=== PATIENT | female | born 1945 | race Caucasian/White ===

== ENCOUNTER → 2017-12-18 | Outpatient (CLI) | payer MEDICARE, MEDICAID | LOC: M WUC 10:55 | DX: M25.511 Pain in right shoulder (principal) | CPT/HCPCS: 73030 ==

== ENCOUNTER 2018-01-08 22:43 | Emergency (ER) | payer MEDICARE, MEDICAID ==
[2018-01-09] MEDS: diphenhydrAMINE 25 MG CAP PO (04:03)
== END 2018-01-09 04:43 | disposition home or self-care (01) ==
LOC: M ED 22:43
DX: Z60.9 Problem related to social environment, unspecified (principal); I10 Essential (primary) hypertension; K21.9 Gastro-esophageal reflux disease without esophagitis; E78.5 Hyperlipidemia, unspecified; R41.89 Other symptoms and signs involving cognitive functions and awareness; Z72.0 Tobacco use; Z79.82 Long term (current) use of aspirin; Z79.899 Other long term (current) drug therapy; Z88.6 Allergy status to analgesic agent; Z88.5 Allergy status to narcotic agent; Z88.7 Allergy status to serum and vaccine; Z88.8 Allergy status to other drugs, medicaments and biological substances
CPT/HCPCS: 99282

== ENCOUNTER → 2018-01-11 | Outpatient (REF) | payer MEDICARE, MEDICAID ==
[2018-01-11 13:27] LABS: APPEARANCE, URINE CLOUDY (CLEAR); BACTERIA, URINE AUTO NEGATIVE (NEGATIVE); BILIRUBIN, URINE AUTO NEGATIVE (NEGATIVE); BLOOD, URINE BLOOD NEGATIVE (NEGATIVE); COLOR, URINE AMBER (YELLOW); GLUCOSE, URINE (UA) AUTO NEGATIVE (NEGATIVE); KETONE, URINE AUTO TRACE mg/dL (NEGATIVE); LEUKOCYTE ESTERASE, URINE AUTO 3+ (NEGATIVE); MUCUS, URINE SMALL (NEGATIVE); NITRITE, URINE AUTO NEGATIVE (NEGATIVE); PROTEIN, URINE AUTO NEGATIVE (NEGATIVE); RBC, URINE AUTO 3 /HPF (0-3); SPECIFIC GRAVITY URINE AUTO 1.017 (1.002-1.035); SQUAMOUS EPITHELIAL CELL UR AU 15 /HPF (0-6); WBC, URINE AUTO 28 /HPF (0-3)
== END ==
LOC: M SMT 13:01
DX: R32 Unspecified urinary incontinence (principal)
CPT/HCPCS: 81001

== ENCOUNTER 2018-01-25 13:58 | Emergency (ER) | payer MEDICARE, MEDICAID ==
[2018-01-25] MEDS: LIDOCAINE 5% OINT 30 GM TOP (16:29)
[2018-01-26] MEDS ORDERED: LIDOCAINE 5% OINT 30 GM TOP (09:00)
== END 2018-01-25 16:48 | disposition home or self-care (01) ==
LOC: M ED 13:58
DX: B37.89 Other sites of candidiasis (principal); M54.9 Dorsalgia, unspecified; I10 Essential (primary) hypertension; E78.00 Pure hypercholesterolemia, unspecified; F20.9 Schizophrenia, unspecified; Z16.21 Resistance to vancomycin; Z86.39 Personal history of other endocrine, nutritional and metabolic disease; F17.200 Nicotine dependence, unspecified, uncomplicated; Z79.899 Other long term (current) drug therapy
CPT/HCPCS: 99283

== ENCOUNTER 2018-01-30 19:04 | Inpatient (IN) | payer MEDICARE, MEDICAID ==
[2018-01-30 19:04] LABS: HEMATOCRIT 39.7 % (36.0-47.0); HEMOGLOBIN 12.9 g/dl (12.0-15.5); MEAN CORPUSCULAR HEMOGLOBIN 34.1 pg (27.0-33.0); MEAN CORPUSCULAR HGB CONC 32.5 g/dl (32.0-36.5); PLATELET COUNT, AUTOMATED 204 10^3/uL (150-450); RED BLOOD COUNT 3.78 10^6/uL (4.00-5.40); WHITE BLOOD COUNT 7.5 10^3/uL (4.0-10.0)
[2018-01-30 19:30] LABS: ACETAMINOPHEN LEVEL < 2.0 UG/ML (10.0-30.0); ALBUMIN 3.1 GM/DL (3.2-5.2); ALBUMIN/GLOBULIN RATIO 0.86 (1.00-1.93); ALKALINE PHOSPHATASE 93 U/L (45-117); ALT/SGPT 23 U/L (12-78); ANION GAP 8 MEQ/L (8-16); AST/SGOT 21 U/L (7-37); BILIRUBIN,DIRECT 0.1 MG/DL (0.0-0.2); BILIRUBIN,TOTAL 0.3 MG/DL (0.2-1.0); BLOOD UREA NITROGEN 17 MG/DL (7-18); CALCIUM LEVEL 8.5 MG/DL (8.8-10.2); CARBON DIOXIDE LEVEL 30 MEQ/L (21-32); CHLORIDE LEVEL 107 MEQ/L (98-107); CREATININE FOR GFR 0.73 MG/DL (0.55-1.30); ETHYL ALCOHOL (ETHANOL) < 0.003 % (0.000-0.010); GLOMERULAR FILTRATION RATE > 60.0 (>39); GLUCOSE, FASTING 112 MG/DL (70-100); POTASSIUM SERUM 3.9 MEQ/L (3.5-5.1); SALICYLATE LEVEL < 1.7 MG/DL (5.0-30.0); SODIUM LEVEL 145 MEQ/L (136-145); TOTAL PROTEIN 6.7 GM/DL (6.4-8.2)
[2018-01-30 20:57] LABS: AMPHETAMINES LEVEL URINE NEGATIVE (NEGATIVE); BARBITURATES URINE NEGATIVE (NEGATIVE); BENZODIAZEPINES URINE NEGATIVE (NEGATIVE); CANNABINOIDS URINE NEGATIVE (NEGATIVE); COCAINE METABOLITE URINE NEGATIVE (NEGATIVE); METHADONE URINE NEGATIVE (NEGATIVE); OPIATES URINE NEGATIVE (NEGATIVE); PHENCYCLIDINE URINE NEGATIVE (NEGATIVE)
[2018-01-30] MEDS ORDERED: MOM 30ML SUSPENSION UDC PO (22:00)
[2018-01-30] MEDS ORDERED: MAALOX 30 ML SUSP *UDC PO (22:00)
[2018-01-31] MEDS: QUEtiapine FUMARATE 50 MG TAB PO ×2 (01:02→21:00)
[2018-01-31] MEDS: DIVALPROEX 500 MG TAB PO ×2 (01:02→21:00)
[2018-01-31] MEDS: traZODone 50 MG TAB PO (01:03)
[2018-01-31] MEDS ORDERED: ALBUTEROL 90 MCG/ACT 8GM HFA INHALER INH (10:00)
[2018-01-31] MEDS: ASPIRIN 81 MG ENTERIC TAB PO (10:17)
[2018-01-31] MEDS: ATORVASTATIN 20 MG TAB PO (10:17)
[2018-01-31] MEDS: NYSTATIN 500,000 U/5 ML SUSP UDC SS ×3 (10:17→21:00)
[2018-01-31] MEDS: TIOTROPIUM INHALER/CAPSULE (SPIRIVA) INH (10:17)
[2018-01-31] MEDS: MAGNESIUM OXIDE 400 MG TAB (MAG-OX) PO (10:17)
[2018-01-31] MEDS: OMEPRAZOLE 20 MG CAP PO (10:17)
[2018-01-31] MEDS: amLODIPine 5 MG TAB PO (10:18)
[2018-01-31] MEDS: LIDOCAINE 5% (LIDODERM) PATCH TD (10:26)
[2018-01-31 11:32] LABS: KETONE, URINE AUTO RFX NEGATIVE (NEGATIVE); LEUKOCYTE ESTERASE UR AUTO RFX 2+ (NEGATIVE); MUCUS, URINE RFX SMALL (NEGATIVE); NITRITE, URINE AUTO RFX NEGATIVE (NEGATIVE); RBC, URINE AUTO RFX 1 /HPF (0-3); SPECIFIC GRAVITY UR AUTO RFX 1.013 (1.002-1.035); SQUAM EPITHELIAL CELL UR AURFX 5 /HPF (0-6); WBC, URINE AUTO RFX 4 /HPF (0-3)
[2018-01-31] MEDS: NYSTATIN 100,000 UNITS/GM TOPICAL PWD 15 GM TOP ×2 (11:37→21:00)
[2018-01-31] MEDS: oxyBUTYnin *DITROPAN XL* 5 MG TABCR PO (11:38)
[2018-01-31] MEDS: DULoxetine 30 MG CAP (CYMBALTA) PO (16:31)
[2018-01-31] MEDS: LORazepam 1 MG TAB PO (16:31)
[2018-01-31] MEDS: traMADol 50 MG TAB PO (16:33)
[2018-01-31] MEDS: TIMOLOL MALEATE 0.5% OPHTH SOLN 5 ML OU (21:00)
[2018-01-31] MEDS ORDERED: QUEtiapine FUMARATE 50 MG TAB PO (21:00)
[2018-01-31] MEDS: LATANOPROST 0.005% OPHTH SOLN 2.5 ML OU (21:00)
[2018-01-31] MEDS ORDERED: DIVALPROEX 500 MG TAB PO (21:00)
[2018-01-31] MEDS: **NOTE PATIENT COMMENT** MISC XX ×2 (21:00)
[2018-02-01 07:32] LABS: HEMATOCRIT 39.6 % (36.0-47.0); HEMOGLOBIN 13.2 g/dl (12.0-15.5); MEAN CORPUSCULAR HEMOGLOBIN 34.9 pg (27.0-33.0); MEAN CORPUSCULAR HGB CONC 33.3 g/dl (32.0-36.5); MEAN CORPUSCULAR VOLUME 104.8 fl (80.0-96.0); PLATELET COUNT, AUTOMATED 200 10^3/uL (150-450); RED BLOOD COUNT 3.78 10^6/uL (4.00-5.40); RED CELL DISTRIBUTION WIDTH 12.9 % (11.5-14.5); WHITE BLOOD COUNT 7.4 10^3/uL (4.0-10.0)
[2018-02-01 07:52] LABS: ANION GAP 6 MEQ/L (8-16); BLOOD UREA NITROGEN 19 MG/DL (7-18); CALCIUM LEVEL 8.8 MG/DL (8.8-10.2); CARBON DIOXIDE LEVEL 30 MEQ/L (21-32); CHLORIDE LEVEL 107 MEQ/L (98-107); CREATININE FOR GFR 0.71 MG/DL (0.55-1.30); GLOMERULAR FILTRATION RATE > 60.0 (>39); GLUCOSE, FASTING 102 MG/DL (70-100); POTASSIUM SERUM 4.2 MEQ/L (3.5-5.1); SODIUM LEVEL 143 MEQ/L (136-145)
[2018-02-01 07:55] LABS: VALPROIC ACID (DEPAKOTE) 35.8 UG/ML (50.0-100.0)
[2018-02-01] MEDS: LIDOCAINE 5% (LIDODERM) PATCH TD (09:00)
[2018-02-01] MEDS: NYSTATIN 100,000 UNITS/GM TOPICAL PWD 15 GM TOP ×2 (09:14→21:17)
[2018-02-01] MEDS: oxyBUTYnin *DITROPAN XL* 5 MG TABCR PO (09:15)
[2018-02-01] MEDS: MAGNESIUM OXIDE 400 MG TAB (MAG-OX) PO (09:15)
[2018-02-01] MEDS: TIOTROPIUM INHALER/CAPSULE (SPIRIVA) INH (09:15)
[2018-02-01] MEDS: NYSTATIN 500,000 U/5 ML SUSP UDC SS ×3 (09:15→21:16)
[2018-02-01] MEDS: DULoxetine 30 MG CAP (CYMBALTA) PO (09:15)
[2018-02-01] MEDS: amLODIPine 5 MG TAB PO (09:16)
[2018-02-01] MEDS: ASPIRIN 81 MG ENTERIC TAB PO (09:17)
[2018-02-01] MEDS: OMEPRAZOLE 20 MG CAP PO (09:17)
[2018-02-01] MEDS: ATORVASTATIN 20 MG TAB PO (09:17)
[2018-02-01 09:44] LABS: FOLATE > 24.0 NG/ML (>5.4)
[2018-02-01 09:44] LABS: VITAMIN B12 LEVEL 523 PG/ML (247-911)
[2018-02-01] MEDS: LATANOPROST 0.005% OPHTH SOLN 2.5 ML OU (21:00)
[2018-02-01] MEDS: TIMOLOL MALEATE 0.5% OPHTH SOLN 5 ML OU (21:00)
[2018-02-01] MEDS: **NOTE PATIENT COMMENT** MISC XX (21:00)
[2018-02-01] MEDS: QUEtiapine FUMARATE 50 MG TAB PO (21:16)
[2018-02-01] MEDS: DIVALPROEX 500 MG TAB PO (21:16)
[2018-02-02] MEDS: LORazepam 1 MG TAB PO (03:07)
[2018-02-02] MEDS: traMADol 50 MG TAB PO (03:21)
[2018-02-02] MEDS: NYSTATIN 100,000 UNITS/GM TOPICAL PWD 15 GM TOP ×2 (09:00→21:00)
[2018-02-02] MEDS: LIDOCAINE 5% (LIDODERM) PATCH TD ×2 (09:00→10:11)
[2018-02-02] MEDS: ASPIRIN 81 MG ENTERIC TAB PO (09:17)
[2018-02-02] MEDS: OMEPRAZOLE 20 MG CAP PO (09:17)
[2018-02-02] MEDS: NYSTATIN 500,000 U/5 ML SUSP UDC SS ×3 (09:18→21:00)
[2018-02-02] MEDS: ATORVASTATIN 20 MG TAB PO (09:18)
[2018-02-02] MEDS: DULoxetine 30 MG CAP (CYMBALTA) PO (09:18)
[2018-02-02] MEDS: amLODIPine 5 MG TAB PO (09:18)
[2018-02-02] MEDS: TIOTROPIUM INHALER/CAPSULE (SPIRIVA) INH (09:18)
[2018-02-02] MEDS: MAGNESIUM OXIDE 400 MG TAB (MAG-OX) PO (09:18)
[2018-02-02] MEDS: PILL CRUSHER/CUTTER 1 EACH XX (09:18)
[2018-02-02] MEDS: oxyBUTYnin *DITROPAN XL* 5 MG TABCR PO (09:18)
[2018-02-02] MEDS: **NOTE PATIENT COMMENT** MISC XX (13:34)
[2018-02-02] MEDS: TIMOLOL MALEATE 0.5% OPHTH SOLN 5 ML OU (21:00)
[2018-02-02] MEDS: LATANOPROST 0.005% OPHTH SOLN 2.5 ML OU (21:00)
[2018-02-03] MEDS: QUEtiapine FUMARATE 100 MG TAB PO (01:21)
[2018-02-03] MEDS: DIVALPROEX 250 MG TAB PO ×2 (01:21→20:55)
[2018-02-03] MEDS: traMADol 50 MG TAB PO (01:35)
[2018-02-03] MEDS: DULoxetine 30 MG CAP (CYMBALTA) PO (09:00)
[2018-02-03] MEDS: amLODIPine 5 MG TAB PO (09:00)
[2018-02-03] MEDS: PILL CRUSHER/CUTTER 1 EACH XX (09:00)
[2018-02-03] MEDS: NYSTATIN 500,000 U/5 ML SUSP UDC SS ×3 (09:00→20:54)
[2018-02-03] MEDS: NYSTATIN 100,000 UNITS/GM TOPICAL PWD 15 GM TOP ×2 (09:00→20:54)
[2018-02-03] MEDS: ASPIRIN 81 MG ENTERIC TAB PO (09:00)
[2018-02-03] MEDS: OMEPRAZOLE 20 MG CAP PO (09:00)
[2018-02-03] MEDS: ATORVASTATIN 20 MG TAB PO (09:00)
[2018-02-03] MEDS: TIOTROPIUM INHALER/CAPSULE (SPIRIVA) INH (09:01)
[2018-02-03] MEDS: oxyBUTYnin *DITROPAN XL* 5 MG TABCR PO (09:01)
[2018-02-03] MEDS: LIDOCAINE 5% (LIDODERM) PATCH TD (09:01)
[2018-02-03] MEDS: MAGNESIUM OXIDE 400 MG TAB (MAG-OX) PO (09:02)
[2018-02-03] MEDS: TIMOLOL MALEATE 0.5% OPHTH SOLN 5 ML OU (20:54)
[2018-02-03] MEDS: LATANOPROST 0.005% OPHTH SOLN 2.5 ML OU (20:56)
[2018-02-03] MEDS: **NOTE PATIENT COMMENT** MISC XX (21:00)
[2018-02-03] MEDS: LevoFLOXacin 500 MG TABLET PO (22:00)
[2018-02-03] MEDS: LACTOBACILLUS ACIDOPHILUS CAP (BACID) PO (22:00)
[2018-02-04] MEDS: LORazepam 1 MG TAB PO ×2 (03:42→10:01)
[2018-02-04] MEDS: traMADol 50 MG TAB PO ×2 (03:42→10:02)
[2018-02-04] MEDS: LevoFLOXacin 250 MG TABLET PO (06:12)
[2018-02-04 07:19] LABS: VALPROIC ACID (DEPAKOTE) 97.6 UG/ML (50.0-100.0)
[2018-02-04] MEDS: ASPIRIN 81 MG ENTERIC TAB PO (09:00)
[2018-02-04] MEDS: NYSTATIN 100,000 UNITS/GM TOPICAL PWD 15 GM TOP ×2 (09:52→21:06)
[2018-02-04] MEDS: DULoxetine 30 MG CAP (CYMBALTA) PO (09:54)
[2018-02-04] MEDS: amLODIPine 5 MG TAB PO (09:54)
[2018-02-04] MEDS: LACTOBACILLUS ACIDOPHILUS CAP (BACID) PO ×2 (09:55→21:05)
[2018-02-04] MEDS: OMEPRAZOLE 20 MG CAP PO (09:55)
[2018-02-04] MEDS: oxyBUTYnin *DITROPAN XL* 5 MG TABCR PO (09:55)
[2018-02-04] MEDS: MAGNESIUM OXIDE 400 MG TAB (MAG-OX) PO (09:56)
[2018-02-04] MEDS: ATORVASTATIN 20 MG TAB PO (09:56)
[2018-02-04] MEDS: NYSTATIN 500,000 U/5 ML SUSP UDC SS ×3 (09:56→21:06)
[2018-02-04] MEDS: LIDOCAINE 5% (LIDODERM) PATCH TD (09:57)
[2018-02-04] MEDS: TIOTROPIUM INHALER/CAPSULE (SPIRIVA) INH (13:16)
[2018-02-04] MEDS: TIMOLOL MALEATE 0.5% OPHTH SOLN 5 ML OU (21:06)
[2018-02-04] MEDS: DIVALPROEX 500 MG TAB PO (21:06)
[2018-02-04] MEDS: LATANOPROST 0.005% OPHTH SOLN 2.5 ML OU (21:20)
[2018-02-04] MEDS: **NOTE PATIENT COMMENT** MISC XX (21:29)
[2018-02-05] MEDS: LevoFLOXacin 250 MG TABLET PO (06:14)
[2018-02-05 08:08] LABS: VALPROIC ACID (DEPAKOTE) 72.1 UG/ML (50.0-100.0)
[2018-02-05] MEDS: NYSTATIN 500,000 U/5 ML SUSP UDC SS ×3 (08:40→20:10)
[2018-02-05] MEDS: LACTOBACILLUS ACIDOPHILUS CAP (BACID) PO ×2 (08:41→20:10)
[2018-02-05] MEDS: PILL CRUSHER/CUTTER 1 EACH XX (08:41)
[2018-02-05] MEDS: OMEPRAZOLE 20 MG CAP PO (08:41)
[2018-02-05] MEDS: amLODIPine 5 MG TAB PO (08:41)
[2018-02-05] MEDS: MAGNESIUM OXIDE 400 MG TAB (MAG-OX) PO (08:41)
[2018-02-05] MEDS: TIOTROPIUM INHALER/CAPSULE (SPIRIVA) INH (08:41)
[2018-02-05] MEDS: oxyBUTYnin *DITROPAN XL* 5 MG TABCR PO (08:41)
[2018-02-05] MEDS: DULoxetine 30 MG CAP (CYMBALTA) PO (08:41)
[2018-02-05] MEDS: ATORVASTATIN 20 MG TAB PO (08:41)
[2018-02-05] MEDS: ASPIRIN 81 MG ENTERIC TAB PO (08:42)
[2018-02-05] MEDS: traMADol 50 MG TAB PO ×2 (08:45→16:22)
[2018-02-05] MEDS: LIDOCAINE 5% (LIDODERM) PATCH TD (08:46)
[2018-02-05] MEDS: DIVALPROEX 500 MG TAB PO (20:10)
[2018-02-05] MEDS: TIMOLOL MALEATE 0.5% OPHTH SOLN 5 ML OU (20:10)
[2018-02-05] MEDS: LATANOPROST 0.005% OPHTH SOLN 2.5 ML OU (20:10)
[2018-02-05] MEDS: MYCOLOG CREAM 15 GM (NYSTATIN/TRIAMCINOLONE) TOP (20:10)
[2018-02-05] MEDS: **NOTE PATIENT COMMENT** MISC XX (20:14)
[2018-02-06] MEDS: LevoFLOXacin 250 MG TABLET PO (05:35)
[2018-02-06] MEDS: MYCOLOG CREAM 15 GM (NYSTATIN/TRIAMCINOLONE) TOP ×2 (08:22→22:59)
[2018-02-06] MEDS: OMEPRAZOLE 20 MG CAP PO (08:23)
[2018-02-06] MEDS: amLODIPine 5 MG TAB PO (08:23)
[2018-02-06] MEDS: NYSTATIN 500,000 U/5 ML SUSP UDC SS ×3 (08:23→22:58)
[2018-02-06] MEDS: oxyBUTYnin *DITROPAN XL* 5 MG TABCR PO (08:23)
[2018-02-06] MEDS: MAGNESIUM OXIDE 400 MG TAB (MAG-OX) PO (08:23)
[2018-02-06] MEDS: LACTOBACILLUS ACIDOPHILUS CAP (BACID) PO ×2 (08:23→22:58)
[2018-02-06] MEDS: TIOTROPIUM INHALER/CAPSULE (SPIRIVA) INH (08:23)
[2018-02-06] MEDS: DULoxetine 30 MG CAP (CYMBALTA) PO (08:23)
[2018-02-06] MEDS: ASPIRIN 81 MG ENTERIC TAB PO (08:23)
[2018-02-06] MEDS: ATORVASTATIN 20 MG TAB PO (08:23)
[2018-02-06] MEDS: LIDOCAINE 5% (LIDODERM) PATCH TD (08:24)
[2018-02-06] MEDS: **NOTE PATIENT COMMENT** MISC XX (21:00)
[2018-02-06] MEDS: DIVALPROEX 500 MG TAB PO (22:58)
[2018-02-06] MEDS: traMADol 50 MG TAB PO (22:58)
[2018-02-06] MEDS: LATANOPROST 0.005% OPHTH SOLN 2.5 ML OU (22:58)
[2018-02-06] MEDS: TIMOLOL MALEATE 0.5% OPHTH SOLN 5 ML OU (22:58)
[2018-02-07] MEDS: traMADol 50 MG TAB PO (04:51)
[2018-02-07] MEDS: LevoFLOXacin 250 MG TABLET PO (06:02)
[2018-02-07] MEDS: ASPIRIN 81 MG ENTERIC TAB PO (09:00)
[2018-02-07] MEDS: DULoxetine 30 MG CAP (CYMBALTA) PO (09:43)
[2018-02-07] MEDS: LACTOBACILLUS ACIDOPHILUS CAP (BACID) PO (09:45)
[2018-02-07] MEDS: ATORVASTATIN 20 MG TAB PO (09:45)
[2018-02-07] MEDS: MAGNESIUM OXIDE 400 MG TAB (MAG-OX) PO (09:45)
[2018-02-07] MEDS: OMEPRAZOLE 20 MG CAP PO (09:53)
[2018-02-07] MEDS: LIDOCAINE 5% (LIDODERM) PATCH TD ×2 (09:53→10:53)
[2018-02-07] MEDS: NYSTATIN 500,000 U/5 ML SUSP UDC SS (09:53)
[2018-02-07] MEDS: MYCOLOG CREAM 15 GM (NYSTATIN/TRIAMCINOLONE) TOP (09:54)
[2018-02-07] MEDS: TIOTROPIUM INHALER/CAPSULE (SPIRIVA) INH (09:55)
[2018-02-07] MEDS: oxyBUTYnin *DITROPAN XL* 5 MG TABCR PO (09:55)
[2018-02-07] MEDS: amLODIPine 5 MG TAB PO (10:38)
== END 2018-02-07 13:12 | disposition home or self-care (01) | DRG 885 ==
LOC: M ED 19:04 → M ED INP 21:49 → M PSY 22:30
DX: F31.9 Bipolar disorder, unspecified (principal); R45.851 Suicidal ideations; B37.0 Candidal stomatitis; J44.9 Chronic obstructive pulmonary disease, unspecified; I10 Essential (primary) hypertension; E78.5 Hyperlipidemia, unspecified; M54.2 Cervicalgia; H40.9 Unspecified glaucoma; K21.9 Gastro-esophageal reflux disease without esophagitis; M81.0 Age-related osteoporosis without current pathological fracture; F17.210 Nicotine dependence, cigarettes, uncomplicated; R26.81 Unsteadiness on feet; N32.81 Overactive bladder; E83.42 Hypomagnesemia; M54.5 Low back pain; B35.9 Dermatophytosis, unspecified; Z79.899 Other long term (current) drug therapy; Z92.3 Personal history of irradiation; Z85.3 Personal history of malignant neoplasm of breast; Z90.49 Acquired absence of other specified parts of digestive tract; Z79.82 Long term (current) use of aspirin; Z88.5 Allergy status to narcotic agent; Z88.6 Allergy status to analgesic agent; Z88.7 Allergy status to serum and vaccine

== ENCOUNTER 2018-03-05 23:15 | Emergency (ER) | payer MEDICARE, MEDICAID ==
[2018-03-06 01:14] LABS: HEMOGLOBIN 12.8 g/dl (12.0-15.5); MEAN CORPUSCULAR HEMOGLOBIN 33.7 pg (27.0-33.0); MEAN CORPUSCULAR HGB CONC 32.8 g/dl (32.0-36.5); MEAN CORPUSCULAR VOLUME 102.6 fl (80.0-96.0); PLATELET COUNT, AUTOMATED 209 10^3/uL (150-450); RED CELL DISTRIBUTION WIDTH 12.6 % (11.5-14.5); WHITE BLOOD COUNT 7.7 10^3/uL (4.0-10.0)
[2018-03-06 01:45] LABS: ACETAMINOPHEN LEVEL < 2.0 UG/ML (10.0-30.0); ALBUMIN/GLOBULIN RATIO 0.81 (1.00-1.93); ALKALINE PHOSPHATASE 88 U/L (45-117); ALT/SGPT 18 U/L (12-78); ANION GAP 4 MEQ/L (8-16); AST/SGOT 16 U/L (7-37); BILIRUBIN,DIRECT 0.1 MG/DL (0.0-0.2); BILIRUBIN,TOTAL 0.4 MG/DL (0.2-1.0); BLOOD UREA NITROGEN 20 MG/DL (7-18); CALCIUM LEVEL 8.9 MG/DL (8.8-10.2); CARBON DIOXIDE LEVEL 33 MEQ/L (21-32); CHLORIDE LEVEL 102 MEQ/L (98-107); CREATININE FOR GFR 0.73 MG/DL (0.55-1.30); GLOMERULAR FILTRATION RATE > 60.0 (>39); GLUCOSE, FASTING 115 MG/DL (70-100); POTASSIUM SERUM 4.1 MEQ/L (3.5-5.1); SALICYLATE LEVEL < 1.7 MG/DL (5.0-30.0); SODIUM LEVEL 139 MEQ/L (136-145); TOTAL PROTEIN 6.7 GM/DL (6.4-8.2)
[2018-03-06 02:57] LABS: KETONE, URINE AUTO RFX NEGATIVE (NEGATIVE); LEUKOCYTE ESTERASE UR AUTO RFX TRACE (NEGATIVE); NITRITE, URINE AUTO RFX NEGATIVE (NEGATIVE); RBC, URINE AUTO RFX 3 /HPF (0-3); SPECIFIC GRAVITY UR AUTO RFX 1.006 (1.002-1.035); SQUAM EPITHELIAL CELL UR AURFX 1 /HPF (0-6); WBC, URINE AUTO RFX 7 /HPF (0-3)
[2018-03-06 04:23] LABS: CHLAMYDIA DNA AMPLIFICATION NEGATIVE (NEGATIVE); GC DNA AMPLIFICATION NEGATIVE (NEGATIVE)
[2018-03-06 15:28] LABS: AMPHETAMINES LEVEL URINE NEGATIVE (NEGATIVE); BARBITURATES URINE NEGATIVE (NEGATIVE); BENZODIAZEPINES URINE NEGATIVE (NEGATIVE); CANNABINOIDS URINE NEGATIVE (NEGATIVE); COCAINE METABOLITE URINE NEGATIVE (NEGATIVE); METHADONE URINE NEGATIVE (NEGATIVE); OPIATES URINE NEGATIVE (NEGATIVE); PHENCYCLIDINE URINE NEGATIVE (NEGATIVE)
[2018-03-12 14:13] LABS: ETHYL ALCOHOL (ETHANOL) < 0.003 % (0.000-0.010)
== END 2018-03-06 05:10 | disposition home or self-care (01) ==
LOC: M ED 23:15
DX: B37.9 Candidiasis, unspecified (principal); F32.9 Major depressive disorder, single episode, unspecified; Z88.8 Allergy status to other drugs, medicaments and biological substances; Z88.5 Allergy status to narcotic agent; Z88.7 Allergy status to serum and vaccine; Z88.6 Allergy status to analgesic agent; Z79.899 Other long term (current) drug therapy
CPT/HCPCS: G0480

== ENCOUNTER → 2018-03-21 | Outpatient (REF) | payer MEDICARE, MEDICAID ==
[2018-03-21 14:10] LABS: BASO % 0.4 % (0.0-1.0); EOS # 0.2 10^3/uL (0.0-0.50); HEMATOCRIT 42.2 % (36.0-47.0); IMMATURE GRANULOCYTE % 0.1 % (0-3.0); LYMPH # 3.6 10^3/uL (1.5-4.5); LYMPH % 42.1 % (24.0-44.0); MEAN CORPUSCULAR HEMOGLOBIN 33.8 pg (27.0-33.0); MEAN CORPUSCULAR HGB CONC 33.2 g/dl (32.0-36.5); MEAN CORPUSCULAR VOLUME 101.9 fl (80.0-96.0); MONO # 0.7 10^3/uL (0.0-0.8); MONO % 8.7 % (0.0-5.0); NEUTROPHILS % 46.7 % (36.0-66.0); PLATELET COUNT, AUTOMATED 231 10^3/uL (150-450); RED BLOOD COUNT 4.14 10^6/uL (4.00-5.40); RED CELL DISTRIBUTION WIDTH 12.5 % (11.5-14.5); WHITE BLOOD COUNT 8.5 10^3/uL (4.0-10.0)
[2018-03-21 14:31] LABS: ALBUMIN 3.3 GM/DL (3.2-5.2); ALKALINE PHOSPHATASE 90 U/L (45-117); ALT/SGPT 22 U/L (12-78); ANION GAP 7 MEQ/L (8-16); AST/SGOT 22 U/L (7-37); BILIRUBIN,TOTAL 0.5 MG/DL (0.2-1.0); BLOOD UREA NITROGEN 22 MG/DL (7-18); CALCIUM LEVEL 8.8 MG/DL (8.8-10.2); CARBON DIOXIDE LEVEL 31 MEQ/L (21-32); CHLORIDE LEVEL 102 MEQ/L (98-107); CHOLESTEROL LEVEL 99 MG/DL (<200); CHOLESTEROL RISK RATIO 2.911 (<5); GLOMERULAR FILTRATION RATE > 60.0 (>39); GLUCOSE, FASTING 90 MG/DL (70-100); HDL CHOLESTEROL 34 MG/DL (>40); LDL CHOLESTEROL 47 MG/DL (<100); NON-HDL-C 65 MG/DL; POTASSIUM SERUM 4.3 MEQ/L (3.5-5.1); SODIUM LEVEL 140 MEQ/L (136-145); TOTAL PROTEIN 7.4 GM/DL (6.4-8.2); TRIGLYCERIDES LEVEL 90 MG/DL (<150)
[2018-03-21 15:01] LABS: ESTIMATED AVERAGE GLUCOSE 137 MG/DL (60-110); HEMOGLOBIN A1c 6.4 %
== END ==
LOC: M LAB REF 13:55
DX: Z13.9 Encounter for screening, unspecified (principal); Z51.81 Encounter for therapeutic drug level monitoring; E66.09 Other obesity due to excess calories
CPT/HCPCS: 80053

== ENCOUNTER → 2018-03-29 | Outpatient (REF) | payer MEDICARE, MEDICAID ==
[2018-03-29 18:38] LABS: APPEARANCE, URINE HAZY (CLEAR); BACTERIA, URINE AUTO NEGATIVE (NEGATIVE); BILIRUBIN, URINE AUTO 1+ (NEGATIVE); BLOOD, URINE BLOOD NEGATIVE (NEGATIVE); COLOR, URINE AMBER (YELLOW); GLUCOSE, URINE (UA) AUTO NEGATIVE (NEGATIVE); KETONE, URINE AUTO TRACE mg/dL (NEGATIVE); LEUKOCYTE ESTERASE, URINE AUTO NEGATIVE (NEGATIVE); MUCUS, URINE LARGE (NEGATIVE); NITRITE, URINE AUTO NEGATIVE (NEGATIVE); PROTEIN, URINE AUTO 1+ mg/dL (NEGATIVE); RBC, URINE AUTO 9 /HPF (0-3); SPECIFIC GRAVITY URINE AUTO 1.021 (1.002-1.035); SQUAMOUS EPITHELIAL CELL UR AU 0 /HPF (0-6); WBC, URINE AUTO 5 /HPF (0-3)
== END ==
LOC: M LAB REF 17:05
DX: R39.89 Other symptoms and signs involving the genitourinary system (principal)
CPT/HCPCS: 81001

== ENCOUNTER → 2018-05-08 | Outpatient (REF) | payer MEDICARE, MEDICAID ==
[2018-05-08 18:48] LABS: APPEARANCE, URINE HAZY (CLEAR); BACTERIA, URINE AUTO 1+ (NEGATIVE); BILIRUBIN, URINE AUTO NEGATIVE (NEGATIVE); BLOOD, URINE BLOOD NEGATIVE (NEGATIVE); COLOR, URINE AMBER (YELLOW); GLUCOSE, URINE (UA) AUTO NEGATIVE (NEGATIVE); KETONE, URINE AUTO TRACE mg/dL (NEGATIVE); LEUKOCYTE ESTERASE, URINE AUTO TRACE (NEGATIVE); MUCUS, URINE SMALL (NEGATIVE); NITRITE, URINE AUTO NEGATIVE (NEGATIVE); PROTEIN, URINE AUTO NEGATIVE (NEGATIVE); RBC, URINE AUTO 2 /HPF (0-3); SPECIFIC GRAVITY URINE AUTO 1.024 (1.002-1.035); SQUAMOUS EPITHELIAL CELL UR AU 11 /HPF (0-6); WBC, URINE AUTO 8 /HPF (0-3)
== END ==
LOC: M LAB REF 16:59
DX: N39.41 Urge incontinence (principal)
CPT/HCPCS: 81001

== ENCOUNTER → 2018-08-21 | Outpatient (CLI) | payer MEDICARE, MEDICAID ==
[~2018-08-21] MED LIST: /ACET5TA PO; /AMLO25TA PO; /DIVA50TA PO; /ESCI10TA PO; /ESCI20TA PO; /LINE60TA PO; /MOXI40TA GT; /RALO60TA PO; ABIL10TA PO; ACET-654 PO; AMLO5TAB6 PO; AMOX125C PO; ASPI1TAB15; ASPI81CH PO; ASPI81TA4 PO; ASPI81TA85 PO; ASPI81TAEC PO; AUGM875T27 PO; BACIDCA PO; BACITAB PO; BENA25CA PO; CALC600T21 PO; CALMOIN EX; CIPR500T89 PO; CYMB60CA3; DAPT50VL IV; DEPA1TAB3 PO; DEPA500T2 PO; DESITIN EXT; DITR1TAB PO; DOCU100C PO; DULO1CAP3 PO; DULO30CA PO; ESTR62CR PV; FLAG500T PO; FLUC200T2 PO; FOLI1TAB11 PO; HYDR1CR EXT; ISOS20TA2 PO; KLON0.5T PO; LACT30TA PO; LATA5OPD OU; LIDO1DIS2 TD; LIPI20TA PO; LISI5TAB PO; MAG400TA; MAGN400T2 PO; MELO15TA3 PO; MELO7.5S PO; MULTCAP PO; MV-OCAP PO; MYRB50TA PO; NICO7PA EXT; NYST10CR; NYST10CR EXT; NYST1POW9 TOP; OMEP20CA3 PO; OXYB10TA PO; OXYCO5TA PO; PERCOCET PO; PRIL40CA PO; PRIN10TA PO; PROAAER IN; PROP PO; PROP10TA8 PO; QUES4POW2 PO; QUET1TAB7; QUET50TA48; QUET50TA48 PO; RISP0.5T21 PO; SERO150T PO; SERO200T2 PO; SERO400T PO; SIME80TA PO; SPIR1CAP INH; TAB-TAB PO; TIMO0.5S29; TIMO0.5S29 OU; TRAM50TA2; TRAZ-160; TRAZ-160 PO; TYLE325T5 PO; ULTR50TA PO; VENTAER INH; XALA0.007 OU; ZEST5TAB PO; ZOCO40TA PO; ZOFR4TAB3 PO; [UNRECOGNIZED DRUG - OTHER] PO
--- NOTE | 2018-08-21 19:01 | REP ---
LUMBOSACRAL SPINE: AP and lateral views of the lumbar spine are performed including flexion and extension views. Comparison made with prior CT 07/19/2013. There is again moderate curvature of the lumbar spine convex to the left. There appears to be a rotatory component. L4 is not well visualized on the lateral views and I cannot exclude acute compression of that vertebral body. There is straightening of the normal lumbar lordosis with no evidence of significant spondylolisthesis. There is moderate diffuse spurring. There is moderate disc space narrowing at all levels with subchondral sclerosis. There is vacuum at L1-2 disc level. Scattered vascular calcifications are present. There appears to be a stent in the right upper quadrant. IMPRESSION: Degenerative changes diffusely. Moderate curvature of the lumbar spine to the left again seen. This limits evaluation of L4 on the lateral view. I cannot exclude acute compression of L4 vertebral body. If there is concern for an occult fracture I recommend CT of the lumbar spine. Electronically Signed by Satnam Kam MD 08/21/2018 07:48 P
== END ==
LOC: M RAD 16:18
PROVIDERS: ATTEND Nurse Practitioner Family
DX: M53.86 Other specified dorsopathies, lumbar region (principal); M85.88 Other specified disorders of bone density and structure, other site; S30.0XXA Contusion of lower back and pelvis, initial encounter; W19.XXXA Unspecified fall, initial encounter; Y93.9 Activity, unspecified; Y99.9 Unspecified external cause status; Y92.9 Unspecified place or not applicable

== ENCOUNTER → 2018-09-20 | Outpatient (REF) | payer MEDICARE, MEDICAID ==
[2018-09-20 19:13] LABS: APPEARANCE, URINE CLEAR (CLEAR); BACTERIA, URINE AUTO 1+ (NEGATIVE); BILIRUBIN, URINE AUTO NEGATIVE (NEGATIVE); BLOOD, URINE BLOOD NEGATIVE (NEGATIVE); COLOR, URINE YELLOW (YELLOW); GLUCOSE, URINE (UA) AUTO NEGATIVE (NEGATIVE); KETONE, URINE AUTO NEGATIVE (NEGATIVE); LEUKOCYTE ESTERASE, URINE AUTO 1+ (NEGATIVE); NITRITE, URINE AUTO NEGATIVE (NEGATIVE); PROTEIN, URINE AUTO NEGATIVE (NEGATIVE); RBC, URINE AUTO 2 /HPF (0-3); SPECIFIC GRAVITY URINE AUTO 1.005 (1.002-1.035); SQUAMOUS EPITHELIAL CELL UR AU 1 /HPF (0-6); TRANSITIONAL EPITHELIAL AUTO <1 /HPF; UROBILINOGEN, URINE AUTO 0.2 mg/dL (0.0-2.0); WBC, URINE AUTO 10 /HPF (0-3)
== END ==
LOC: M LAB REF 10:14
PROVIDERS: ATTEND Family Medicine
DX: N39.0 Urinary tract infection, site not specified (principal); R32 Unspecified urinary incontinence

== ENCOUNTER → 2018-09-25 | Outpatient (REF) | payer MEDICARE, MEDICAID ==
[~2018-09-25] MED LIST changes: -/ACET5TA PO; -/AMLO25TA PO; -/DIVA50TA PO; -/ESCI10TA PO; -/ESCI20TA PO; -/LINE60TA PO; -/MOXI40TA GT; -/RALO60TA PO; +ACET1TAB18 PO; +AVEL1TAB2 GT; +DESI40PS3 EXT; -DESITIN EXT; -DULO30CA PO; +DULO30CA9 PO; +EVIS1TAB PO; -HYDR1CR EXT; +HYDR1CRE93 EXT; +INDE1CAP5 PO; +LATA0.0013 OU; -LATA5OPD OU; +LEXA1TAB PO; +LEXA1TAB2 PO; +NICO7DIS23 EXT; -NICO7PA EXT; +NORV2TAB PO; +ONDA-228 PO; +OXYC-517 PO; +OXYC1TAB23 PO; -OXYCO5TA PO; -PERCOCET PO; -PROP PO; -ZOFR4TAB3 PO; +ZYVO100T PO
[2018-09-25 16:56] LABS: BASO % 0.2 % (0.0-1.0); EOS # 0.3 10^3/uL (0.0-0.50); EOS % 2.9 % (0.0-3.0); HEMATOCRIT 38.6 % (36.0-47.0); HEMOGLOBIN 12.5 g/dl (12.0-15.5); LYMPH # 3.1 10^3/uL (1.5-4.5); LYMPH % 35.3 % (24.0-44.0); MEAN CORPUSCULAR HEMOGLOBIN 34.3 pg (27.0-33.0); MEAN CORPUSCULAR HGB CONC 32.4 g/dl (32.0-36.5); MONO # 0.7 10^3/uL (0.0-0.8); NEUTROPHILS # 4.6 10^3/uL (1.8-7.7); NEUTROPHILS % 53.4 % (36.0-66.0); PLATELET COUNT, AUTOMATED 260 10^3/uL (150-450); RED BLOOD COUNT 3.64 10^6/uL (4.00-5.40); WHITE BLOOD COUNT 8.7 10^3/uL (4.0-10.0)
[2018-09-25 17:01] LABS: ALBUMIN 3.4 GM/DL (3.2-5.2); ALT/SGPT 21 U/L (12-78); BILIRUBIN,TOTAL 0.4 MG/DL (0.2-1.0); BLOOD UREA NITROGEN 18 MG/DL (7-18); CARBON DIOXIDE LEVEL 32 MEQ/L (21-32); CHLORIDE LEVEL 101 MEQ/L (98-107); CHOLESTEROL LEVEL 121 MG/DL (<200); CREATININE FOR GFR 0.95 MG/DL (0.55-1.30); GLOMERULAR FILTRATION RATE > 60.0 (>39); GLUCOSE, FASTING 117 MG/DL (70-100); HDL CHOLESTEROL 42 MG/DL (>40); LDL CHOLESTEROL 61 MG/DL (<100); NON-HDL-C 79 MG/DL; POTASSIUM SERUM 3.8 MEQ/L (3.5-5.1); SODIUM LEVEL 138 MEQ/L (136-145); TOTAL PROTEIN 7.5 GM/DL (6.4-8.2); TRIGLYCERIDES LEVEL 90 MG/DL (<150)
[2018-09-25 17:15] LABS: HEMOGLOBIN A1c 6.3 %
== END ==
LOC: M LAB REF 16:22
PROVIDERS: ATTEND Nurse Practitioner Family
DX: R73.03 Prediabetes (principal); Z13.9 Encounter for screening, unspecified; E78.00 Pure hypercholesterolemia, unspecified

== ENCOUNTER → 2018-09-30 | Outpatient (CLI) | payer MEDICARE, MEDICAID ==
[~2018-09-30] MED LIST changes: +ISOVUE-370 76% 100ML VIAL (Q9967) As Ordered ONE
--- NOTE | 2018-09-30 16:58 | REP ---
CT lumbar spine without contrast: History: Back pain. Contusion. Repeated falls. Comparison radiographs August 21, 2018. Comparison MRI study February 19, 2014. CT findings: There is a moderate levoconvex lumbar rotoscoliosis again noted. Lumbar vertebral body heights are preserved. There is diffuse degenerative disc disease with vacuum phenomenon at each lumbar disc level as well as at the lower to or three thoracic disc levels. No fracture is seen. Pedicles and posterior elements are intact. Upper sacrum and visualized iliac bones are intact. Heavy vascular calcification is noted. There is a biliary stent noted in place with incidental pneumobilia. There is diffuse disc bulging and posterior osteophytic ridging and L5-S1 and L4-5. Mild central canal stenosis is present at L4-5 due to developmentally short pedicles and disc bulging. No neural foraminal encroachment is appreciated. At L3-4, there is mild central canal stenosis with diffuse disc bulging. There is right-sided neural foraminal encroachment due to posterior osteophytic ridging and the scoliosis. At L2-3, there is mild diffuse disc bulging. Canal size is borderline. No neural foraminal encroachment is seen. At L1-2, there is moderate diffuse disc bulging and osteophytic ridging. This produces some thecal sac compression. There is mild central canal stenosis. No neural foraminal encroachment is seen. Impression: No traumatic abnormality noted. Advanced degenerative disc disease and osteoarthritic facet changes. Levoconvex scoliosis. Multilevel central canal stenosis. Right-sided neural foraminal encroachment at L3-4. Electronically Signed by Stevie Holloway MD 09/30/2018 05:41 P
== END ==
LOC: M RAD 13:46
PROVIDERS: ATTEND Nurse Practitioner Family
DX: M51.36 Other intervertebral disc degeneration, lumbar region (principal); M41.9 Scoliosis, unspecified; M48.061 Spinal stenosis, lumbar region without neurogenic claudication; M51.26 Other intervertebral disc displacement, lumbar region; S30.0XXA Contusion of lower back and pelvis, initial encounter; R29.6 Repeated falls; M54.89 Other dorsalgia; Y92.9 Unspecified place or not applicable; Y99.9 Unspecified external cause status; Y93.9 Activity, unspecified; X58.XXXA Exposure to other specified factors, initial encounter
CPT/HCPCS: 72132; Q9967

== ENCOUNTER → 2018-10-03 | Outpatient (REF) | payer MEDICARE, MEDICAID ==
[~2018-10-03] MED LIST changes: -ISOVUE-370 76% 100ML VIAL (Q9967) As Ordered ONE
[2018-10-03 18:05] LABS: APPEARANCE, URINE CLEAR (CLEAR); BACTERIA, URINE AUTO 1+ (NEGATIVE); BILIRUBIN, URINE AUTO NEGATIVE (NEGATIVE); BLOOD, URINE BLOOD 2+ (NEGATIVE); COLOR, URINE YELLOW (YELLOW); GLUCOSE, URINE (UA) AUTO NEGATIVE (NEGATIVE); KETONE, URINE AUTO NEGATIVE (NEGATIVE); LEUKOCYTE ESTERASE, URINE AUTO NEGATIVE (NEGATIVE); NITRITE, URINE AUTO NEGATIVE (NEGATIVE); PROTEIN, URINE AUTO NEGATIVE (NEGATIVE); RBC, URINE AUTO 3 /HPF (0-3); SPECIFIC GRAVITY URINE AUTO 1.005 (1.002-1.035); SQUAMOUS EPITHELIAL CELL UR AU 1 /HPF (0-6); UROBILINOGEN, URINE AUTO 0.2 mg/dL (0.0-2.0); WBC, URINE AUTO 0 /HPF (0-3)
== END ==
LOC: M LAB REF 16:23
PROVIDERS: ATTEND Nurse Practitioner Women's Health
DX: N32.81 Overactive bladder (principal); N39.41 Urge incontinence

== ENCOUNTER 2018-11-02 13:00 | Emergency (ER) | payer MEDICARE, MEDICAID ==
[~2018-11-02] VITALS: Ht 144.8 cm; Wt 68.2 kg
[2018-11-02] MEDS ORDERED: IBUP-1022 (13:16)
[2018-11-02] MEDS ORDERED: NITR100C2 (13:16)
[2018-11-02] MEDS ORDERED: AMIT25TA (13:16)
[2018-11-02 14:30] VITALS: BP 143/86
== END 2018-11-02 14:56 | disposition home or self-care (01) ==
LOC: M ED 13:00
DX: F43.0 Acute stress reaction (principal); G89.4 Chronic pain syndrome; I10 Essential (primary) hypertension; K21.9 Gastro-esophageal reflux disease without esophagitis; E78.5 Hyperlipidemia, unspecified; F32.9 Major depressive disorder, single episode, unspecified; F20.9 Schizophrenia, unspecified; Z88.8 Allergy status to other drugs, medicaments and biological substances; Z88.5 Allergy status to narcotic agent; Z88.6 Allergy status to analgesic agent; Z88.7 Allergy status to serum and vaccine; Z79.899 Other long term (current) drug therapy

== ENCOUNTER → 2018-11-08 | Outpatient (CLI) | payer MEDICARE, MEDICAID ==
[~2018-11-08] MED LIST changes: +AMIT25TA; +IBUP-1022; +NITR100C2
[2018-11-08 10:19] LABS: ALBUMIN 3.1 GM/DL (3.2-5.2); ALT/SGPT 22 U/L (12-78); BILIRUBIN,TOTAL 0.4 MG/DL (0.2-1.0); BLOOD UREA NITROGEN 9 MG/DL (7-18); CALCIUM LEVEL 8.9 MG/DL (8.8-10.2); CARBON DIOXIDE LEVEL 33 MEQ/L (21-32); CHLORIDE LEVEL 100 MEQ/L (98-107); CHOLESTEROL LEVEL 108 MG/DL (<200); CHOLESTEROL RISK RATIO 2.347 (<5); CREATININE FOR GFR 0.73 MG/DL (0.55-1.30); GLOMERULAR FILTRATION RATE > 60.0 (>39); GLUCOSE, FASTING 92 MG/DL (70-100); HDL CHOLESTEROL 46 MG/DL (>40); LDL CHOLESTEROL 49 MG/DL (<100); NON-HDL-C 62 MG/DL; POTASSIUM SERUM 3.8 MEQ/L (3.5-5.1); SODIUM LEVEL 138 MEQ/L (136-145); TOTAL PROTEIN 6.5 GM/DL (6.4-8.2); TRIGLYCERIDES LEVEL 63 MG/DL (<150); VALPROIC ACID (DEPAKOTE) 51.3 UG/ML (50.0-100.0)
== END ==
LOC: M LAB 08:57
PROVIDERS: ATTEND Nurse Practitioner Psychiatric/Mental Health
DX: F25.9 Schizoaffective disorder, unspecified (principal); Z79.899 Other long term (current) drug therapy

== ENCOUNTER → 2018-12-11 | Outpatient (CLI) | payer MEDICARE, MEDICAID ==
[~2018-12-11] MED LIST changes: -AMIT25TA; +AMIT25TA PO; +ATOR1TAB21 PO; -CYMB60CA3; +CYMB60CA3 PO; -IBUP-1022; +IBUP-1022 PO; +LACT3000 PO; +MECL1CHW PO; +OSPH1TAB PO; -TRAZ-160; -TRAZ-160 PO; +TRAZ-252; +TRAZ-252 PO
--- NOTE | 2018-12-11 11:34 | REP ---
LEFT SHOULDER THREE VIEWS: Three views of the left shoulder were performed. There is moderate narrowing of the glenohumeral and acromioclavicular joints. Moderate degree of subchondral sclerosis is seen on both sides of the glenohumeral joint. There is no fracture or dislocation. IMPRESSION: Moderate degenerative changes glenohumeral and acromioclavicular joints. Electronically Signed by Satnam Kam MD 12/11/2018 04:34 P
== END ==
LOC: M RAD 10:26
PROVIDERS: ATTEND Nurse Practitioner Family
DX: R29.6 Repeated falls (principal); M19.012 Primary osteoarthritis, left shoulder

== ENCOUNTER → 2018-12-18 | Outpatient (REF) | payer MEDICARE, MEDICAID ==
[~2018-12-18] MED LIST changes: +AZIT-12 PO; -DULO1CAP3 PO; +DULO1CAP6 PO; +LORA-674 PO; -OMEP20CA3 PO; +OMEP20CA4 PO
== END ==
LOC: M LAB REF 18:49
PROVIDERS: ATTEND Nurse Practitioner Family
DX: J02.9 Acute pharyngitis, unspecified (principal)

== ENCOUNTER 2018-12-19 08:04 | Day surgery (SDC) | payer MEDICARE, MEDICAID ==
[~2018-12-19] VITALS: Ht 144.8 cm; Wt 57.2 kg
[~2018-12-19 08:04] MED LIST changes: -AZIT-12 PO; -LORA-674 PO; +LR 1,000 ML IV ONE; +MIDAZOLAM INJ 2 MG/2 ML VIAL (J2250) As Ordered ONE; -OXYB10TA PO; +OXYB10TA2 PO; +fentaNYL 100 MCG/2 ML INJECTION (J3010) As Ordered ONE
[2018-12-19] MEDS ORDERED: ONDANSETRON 4MG/2ML VIAL (J2405) As Ordered ONE (08:05)
[2018-12-19] MEDS ORDERED: PROPOFOL 200 MG/20 ML VIAL As Ordered ONE (08:05)
[2018-12-19] MEDS ORDERED: dexameTHASONE 4 MG/ML 1ML VIAL (J1100) As Ordered ONE (08:05)
[2018-12-19] MEDS ORDERED: LIDOCAINE 2% INJ 100 MG/5 ML SDV (FOR ANES.) As Ordered ONE (08:05)
[2018-12-19] MEDS ORDERED: LORA-674 PO (09:14)
[2018-12-19] MEDS ORDERED: AZIT-12 PO (09:14)
[2018-12-19] MEDS ORDERED: BOTULINUM INJ 100 UNITS (J0585) As Ordered ONE (10:10)
[2018-12-19] MEDS ORDERED: LR 1,000 ML IV SCH ×2 (12:15→14:30)
[2018-12-19] MEDS: LR 1,000 ML IV SCH (12:15)
--- NOTE | 2018-12-19 12:15 | RO ---
DATE OF PROCEDURE: 12/19/2018 PREPROCEDURE DIAGNOSIS: Overactive bladder with detrusor overactivity, failed other methods. POSTPROCEDURE DIAGNOSIS: Overactive bladder with detrusor overactivity, failed other methods. PROCEDURE: Cystourethroscopy with Botox chemodenervation of the bladder, a total of 100 units of Botox A was injected. SURGEON: Dr. Libby Finch. MACHINE OPERATOR HAY STACKER: None. ANESTHESIA: Monitored anesthesia care (MAC). DESCRIPTION OF PROCEDURE: Mojgan was brought to the operating room where sufficient MAC anesthesia was induced. She was prepped, draped and positioned in the usual sterile fashion, and the cystoscope placed. Using the 70-degree scope, initial survey 360-degree evaluation of the bladder showed normal bladder findings. There was no polyp. No hyperpigmentation. No lesions. The ureteral orifices and trigone were normal in appearance. We then switched out for the 30-degree scope and set up the Botox on the flexible needle. Then carefully injected small aliquots of the Botox A into the bladder wall. A total of 100 units were injected in separate locations. Chaser of saline was used to clear the needle so that all of the medication was injected. The procedure was then ended. ESTIMATED BLOOD LOSS: None. FLUID REPLACEMENT: Crystalloid. COMPLICATIONS: None. CONDITION AND DISPOSITION: Mojgan tolerated the procedure well and was recovering in the recovery room in good condition.
[2018-12-19] MEDS ORDERED: KETOROLAC 60 MG/2 ML VIAL (J1885) As Ordered ONE (13:34)
[2018-12-19] MEDS ORDERED: IPRATROPIUM 0.5MG/ALBUTEROL 2.5MG INH SOL UD 3ML (DUONEB)(J7620) As Ordered ONE (14:10)
[2018-12-19] MEDS ORDERED: fentaNYL 100 MCG/2 ML INJECTION (J3010) IV PRN (14:30)
[2018-12-19] MEDS ORDERED: oxyCODONE 5MG TAB PO PRN (14:30)
[2018-12-19] MEDS ORDERED: IPRATROPIUM 0.5MG/ALBUTEROL 2.5MG INH SOL UD 3ML (DUONEB)(J7620) INH ONE (14:45)
[2018-12-19 16:15] VITALS: BP 148/80
[2018-12-19 16:45] VITALS: BP 128/64
[2018-12-19 17:15] VITALS: BP 130/74
[2018-12-19] MEDS ORDERED: MELOXICAM (MOBIC) 7.5 MG TAB PO PRN (17:15)
[2018-12-19 18:15] VITALS: BP 127/61
[2018-12-19 19:15] VITALS: BP 132/64
[2018-12-19 20:15] VITALS: BP 110/58
[2018-12-19] MEDS ORDERED: ATORVASTATIN 20 MG TAB PO SCH (21:00)
[2018-12-19] MEDS ORDERED: DIVALPROEX 500 MG TAB PO SCH (21:00)
[2018-12-19] MEDS ORDERED: LATANOPROST 0.005% OPHTH SOLN 2.5 ML OU SCH (21:00)
[2018-12-19] MEDS ORDERED: traZODone 50 MG TAB PO PRN (21:30)
[2018-12-19] MEDS ORDERED: ALBUTEROL SULFATE 2.5 MG/0.5 ML INH NEB SOLN NEB PRN (21:30)
--- NOTE | 2018-12-19 21:39 | CR.PDOC ---
General Date of Consultation: Dec 19, 2018 Referring Provider: Libby Finch MD, FACOG Consultation REASON FOR CONSULTATION/CHIEF COMPLAINT: Hypoxia. HISTORY OF PRESENT ILLNESS:, 73-year-old female with history of COPD, still actively smoking. Schizoaffective disorder, remote breast cancer, an overactive bladder. Patient underwent a urological procedure today for overactive bladder. Postop, she was noted to be hypoxic. She denies any complaints. However, she is a very poor historian. ALLERGIES: Please see below. HOME MEDICATIONS: Please see below. PAST MEDICAL HISTORY: 1., COPD. 2., Schizoaffective 3., Breast cancer. FAMILY HISTORY: Unable to obtain SOCIAL HISTORY: Actively smoking 3 cigarettes per day REVIEW OF SYSTEMS: Unable to obtain PHYSICAL EXAMINATION: VITAL SIGNS: Please see below. GENERAL APPEARANCE: Alert but disoriented. HEENT: Normocephalic, atraumatic. Extraocular movements intact. Pupils equal and reactive. RESPIRATORY:. No labored breathing. Lung sounds clear to auscultation with good air movement. CARDIOVASCULAR:. S1, S2, no murmur. Regular rate and rhythm. ABDOMEN:. Soft, nontender. EXTREMITIES:, No edema. NEUROLOGICAL:. No focal deficits. PSYCHIATRIC: Pressured, tangential speech. LABORATORY DATA: Please see below. ASSESSMENT/PLAN: 73-year-old female with history of COPD presenting with hypoxia postprocedure. Check chest x-ray, CBC, CMP and BNP. Lungs sounds are clear. Continue supplemental oxygen to maintain pulse ox greater than 89 Albuterol as needed. Continue Spiriva. Receive steroids early this morning. We'll give a second dose tonight. Incentive spirometry. Schizoaffective disorder. Continue psych medications. Vital Signs/I&O Vital Signs Date Time Temp Pulse Resp B/P (MAP) Pulse Ox O2 Delivery O2 Flow Rate FiO2 12/19/18 19:15 98.0 88 16 132/64 (86) 94 2.0 Laboratory Data Labs 24H Laboratory Tests 2 12/19/18 08:55: Bedside Glucose (Misc Panel) 96 12/19/18 12:16: Bedside Glucose (Misc Panel) 88 Allergies Coded Allergies: morphine (Verified Allergy, Severe, 'I almost ', 12/19/18) acetaminophen (Verified Allergy, Unknown, unknown, 12/19/18) naproxen (Verified Allergy, Unknown, unknown, 12/19/18) TAKES IBUPROFEN AND ASPIRIN AT HOME oxycodone (Unverified Allergy, Unknown, unknown, 12/19/18) propoxyphene (Verified Allergy, Unknown, unknown, 12/19/18) tetanus toxoid, adsorbed (Verified Allergy, Unknown, unknown, 12/19/18) thiothixene (Verified Adverse Reaction, Intermediate, EPS, 12/19/18) hydrocodone (Verified Adverse Reaction, Mild, 'I fall', 12/19/18) hydroxyzine (Verified Adverse Reaction, Mild, vomits, 12/19/18) Home Medications Scheduled Amitriptyline HCl (Amitriptyline HCl) 25 Mg Tablet, 25 MG PO BID, (Reported) Amlodipine Besylate (Amlodipine Besylate) 5 Mg Tab, 2.5 MG PO DAILY, (Reported) Aspirin (Aspir 81) 81 Mg Tablet.dr, 81 MG PO DAILY, #30 (Reported) Atorvastatin Calcium (Atorvastatin Calcium) 20 Mg Tablet, 20 MG PO DAILY, (Reported) Azithromycin (Azithromycin) 250 Mg Tablet, 250 MG PO DAILY, (Reported) Divalproex Sodium (Depakote) 500 Mg Tab, 500 MG PO QHS for mood for 30 Days, #30 Duloxetine Hcl (Cymbalta) 60 Mg Cap, 90 MG PO QAM, (Reported) Lactase (Lactaid) 3,000 Unit Tablet, 3,000 UNIT PO TID, (Reported) Latanoprost (Xalatan) 0.005 % Kourtney, 1 DROP OU QHS, (Reported) Loratadine (Loratadine) 10 Mg Tablet, 10 MG PO DAILY for allergy symptoms for 30 Days, #30 (Reported) Magnesium Oxide (Magnesium Oxide) 400 Mg Tab, 400 MG PO DAILY, (Reported) Mirabegron (Myrbetriq) 50 Mg Tab, 50 MG PO DAILY, (Reported) Multivitamin (Tab-A-Ari) 1 Tab Tab, 1 TAB PO DAILY, (Reported) Omeprazole (Omeprazole) 20 Mg Cap, 20 MG PO DAILY, (Reported) Ospemifene (Osphena) 60 Mg Tablet, 60 MG PO DAILY, (Reported) Timolol Maleate (Timolol Maleate) 0.5 % Kourtney, 1 DROP OU QHS, (Reported) Tiotropium [place] (Spiriva) 18 Mcg Cap, 1 INHALATION INH DAILY, (Reported) Scheduled PRN Albuterol Sulfate (Ventolin Hfa) 108 Mcg/Act Aer, 2 PUFFS INH Q4H PRN for SHORTNESS OF BREATH, (Reported) Albuterol Sulfate (Ventolin Hfa) 18 Gm Hfa.aer.ad, 2 PUFF INH QHS PRN for wheezing for 30 Days, #1 (Reported) Ibuprofen (Ibuprofen) 600 Mg Tablet, 600 MG PO TIDP PRN for PAIN, (Reported) Meclizine Hcl (Meclizine HCl) 25 Mg Tab.chew, 12.5 MG PO TIDP PRN for VERTIGO/DIZZINESS, (Reported) Trazodone HCl (Trazodone HCl) 50 Mg Tab, 150 MG PO QHS PRN for SLEEP, (Reported) ISA ESCAMILLA MD Dec 19, 2018 21:39
[2018-12-19 22:08] LABS: BASO % 0.2 % (0.0-1.0); HEMATOCRIT 31.9 % (36.0-47.0); HEMOGLOBIN 10.5 g/dl (12.0-15.5); LYMPH # 1.2 10^3/uL (1.5-4.5); LYMPH % 23.7 % (24.0-44.0); MEAN CORPUSCULAR HEMOGLOBIN 34.8 pg (27.0-33.0); MEAN CORPUSCULAR HGB CONC 32.9 g/dl (32.0-36.5); MEAN CORPUSCULAR VOLUME 105.6 fl (80.0-96.0); MONO # 0.4 10^3/uL (0.0-0.8); MONO % 7.2 % (0.0-5.0); NEUTROPHILS # 3.4 10^3/uL (1.8-7.7); NEUTROPHILS % 68.7 % (36.0-66.0); PLATELET COUNT, AUTOMATED 222 10^3/uL (150-450); RED BLOOD COUNT 3.02 10^6/uL (4.00-5.40)
[2018-12-19] MEDS: AMITRIPTYLINE 25 MG TAB PO SCH (22:24)
[2018-12-19 22:38] LABS: ALBUMIN 2.3 GM/DL (3.2-5.2); BILIRUBIN,TOTAL 0.1 MG/DL (0.2-1.0); CALCIUM LEVEL 7.2 MG/DL (8.8-10.2); CREATININE FOR GFR 1.09 MG/DL (0.55-1.30); GLOMERULAR FILTRATION RATE 52.1 (>39); POTASSIUM SERUM 3.1 MEQ/L (3.5-5.1); TOTAL PROTEIN 5.8 GM/DL (6.4-8.2)
[2018-12-20 06:00] VITALS: BP 133/66
--- NOTE | 2018-12-20 07:30 | REP ---
Portable chest, 09:45 p.m., single AP view the patient sitting: Comparison is 07/07/2013. There is chronic elevation of the right hemidiaphragm, unchanged. There is eight 3 mm left upper lobe lung nodule, unchanged. There are surgical clips in the right axilla, unchanged. There is discoid atelectasis bilaterally. The lung silva otherwise clear. Cardiac size is normal. The dmitry, mediastinum, skeletal structures are unremarkable. The there is a double pigtail catheter in the abdominal right upper quadrant and there are there are surgical clips in the abdominal right upper quadrant. Impression: Bilateral discoid atelectasis. Electronically Signed by Satnam Rodriguez MD 12/20/2018 07:22 A
[2018-12-20] MEDS: AMITRIPTYLINE 25 MG TAB PO SCH (08:53)
[2018-12-20 08:54] VITALS: BP 134/68
[2018-12-20] MEDS ORDERED: OMEPRAZOLE 20 MG CAP PO SCH (09:00)
[2018-12-20] MEDS ORDERED: DULoxetine 30 MG CAP (CYMBALTA) PO SCH (09:00)
[2018-12-20] MEDS ORDERED: TIOTROPIUM INHALER/CAPSULE (SPIRIVA) INH SCH (09:00)
[2018-12-20] MEDS ORDERED: ASPIRIN 81 MG ENTERIC TAB PO SCH (09:00)
[2018-12-20 10:00] VITALS: BP 119/73
[2018-12-20 14:00] VITALS: BP 118/72
--- NOTE | 2018-12-20 19:56 | IPNPDOC ---
Subjective Date Seen The patient was seen on 12/20/18. Subjective Chief Complaint/HPI 73-year-old female with history of COPD, still actively smoking. Schizoaffective disorder, remote breast cancer, an overactive bladder. Patient underwent a urological procedure for overactive bladder. Postop, she was noted to be hypoxic. She denies any complaints. However, she is a very poor historian. General: Reports: ROS Unobtainable Objective Physical Examination General Exam: Positive: Alert; Negative: Cooperative Eye Exam: Positive: PERRLA, Conjunctiva & lids normal, EOMI; Negative: Sclera icteric ENT Exam: Positive: Atraumatic, Mucous membr. moist/pink, Pharynx Normal Neck Exam: Positive: Supple; Negative: JVD, thyromegaly Chest Exam: Positive: Clear to auscultation, Normal air movement Heart Exam: Positive: Rate Normal, Regular Rhythm, Normal S1, Normal S2; Negative: Murmurs, Rubs Abdomen Exam: Positive: Normal bowel sounds, Soft; Negative: Tenderness, Hepatospenomegaly Extremity Exam: Positive: Normal pulses; Negative: Clubbing, Cyanosis, Edema Skin Exam: Positive: Nl turgor and temperature; Negative: Rash, Breakdown Neuro Exam: Positive: Normal Gait, Normal Speech, Cranial Nerves 3-12 NL, Reflexes 2+ Psych Exam: Negative: Mood NL Assessment /Plan Assessment 73f with schizoaffective disorder, copd, overactive bladder remains hypoxic this morning oxygen adjusted to keep 88-92 prescription for home o2 provided cxr unremarkable bnp wnl no evidence of infection or chf hypoxia due to chronic copd medically cleared for dc home Plan/VTE VTE Prophylaxis Ordered?: No VS, I&O, 24H, [facility] Vital Signs/I&O Vital Signs Date Time Temp Pulse Resp B/P (MAP) Pulse Ox O2 Delivery O2 Flow Rate FiO2 12/20/18 14:00 99.0 78 17 118/72 (87) 96 3.0 I&O- Last 24 Hours up to 6 AM 12/20/18 06:00 Intake Total 1980 ml Balance 1980 ml Laboratory Data 24H LABS Laboratory Tests 2 12/19/18 22:00: Immature Granulocyte % (Auto) 0.2, White Blood Count 5.0, Red Blood Count 3.02L, Hemoglobin 10.5L, Hematocrit 31.9L, Mean Corpuscular Volume 105.6H, Mean Corpuscular Hemoglobin 34.8H, Mean Corpuscular Hemoglobin Concent 32.9, Red Cell Distribution Width 12.8, Platelet Count 222, Neutrophils (%) (Auto) 68.7H, Lymphocytes (%) (Auto) 23.7L, Monocytes (%) (Auto) 7.2H, Eosinophils (%) (Auto) 0.0, Basophils (%) (Auto) 0.2, Neutrophils # (Auto) 3.4, Lymphocytes # (Auto) 1.2L, Monocytes # (Auto) 0.4, Eosinophils # (Auto) 0.0, Basophils # (Auto) 0.0, Nucleated Red Blood Cells % (auto) 0.0, Anion Gap 6L, Glomerular Filtration Rate 52.1, Blood Urea Nitrogen 16, Creatinine 1.09, Sodium Level 144, Potassium Level 3.1L, Chloride Level 105, Carbon Dioxide Level 33H, Calcium Level 7.2L, Aspartate Amino Transf (AST/SGOT) 21, Alanine Aminotransferase (ALT/SGPT) 21, Alkaline Phosphatase 83, Total Bilirubin 0.1L, Total Protein 5.8L, Albumin 2.3L, [id number] Natriuretic Peptide 352, Albumin/Globulin Ratio 0.66L CBC/BMP Laboratory Tests 12/19/18 22:00 Red Blood Count 3.02 L, Mean Corpuscular Volume 105.6 H, Mean Corpuscular Hemoglobin 34.8 H, Mean Corpuscular Hemoglobin Concent 32.9, Red Cell Distribution Width 12.8, Neutrophils (%) (Auto) 68.7 H, Lymphocytes (%) (Auto) 23.7 L, Monocytes (%) (Auto) 7.2 H, Eosinophils (%) (Auto) 0.0, Basophils (%) (Auto) 0.2, Neutrophils # (Auto) 3.4, Lymphocytes # (Auto) 1.2 L, Monocytes # (Auto) 0.4, Eosinophils # (Auto) 0.0, Basophils # (Auto) 0.0, Calcium Level 7.2 L, Aspartate Amino Transf (AST/SGOT) 21, Alanine Aminotransferase (ALT/SGPT) 21, Alkaline Phosphatase 83, Total Bilirubin 0.1 L, Total Protein 5.8 L, Albumin 2.3 L ISA ESCAMILLA MD Dec 20, 2018 19:56
== END 2018-12-20 16:04 | disposition home or self-care (01) ==
LOC: M SDC 08:04 → M MSPAV 16:15 → M SDC 12-20 16:04
PROVIDERS: ATTEND Obstetrics & Gynecology
DX: N32.81 Overactive bladder (principal); J44.9 Chronic obstructive pulmonary disease, unspecified; F25.9 Schizoaffective disorder, unspecified; E11.9 Type 2 diabetes mellitus without complications; I10 Essential (primary) hypertension; E78.5 Hyperlipidemia, unspecified; Z85.3 Personal history of malignant neoplasm of breast; Z88.5 Allergy status to narcotic agent; Z79.82 Long term (current) use of aspirin; Z79.899 Other long term (current) drug therapy; Z88.7 Allergy status to serum and vaccine
CPT/HCPCS: 36415; 52287; 71045; 80053; 83880; 85025; 94640; J0585; J0690; J1100; J1885; J2405; J3010

== ENCOUNTER → 2019-01-20 | Outpatient (CLI) | payer MEDICARE, MEDICAID ==
[~2019-01-20] MED LIST changes: +AZIT-12 PO; +LORA-674 PO; -LR 1,000 ML IV ONE; -MIDAZOLAM INJ 2 MG/2 ML VIAL (J2250) As Ordered ONE; +OXYB10TA PO; -OXYB10TA2 PO; -fentaNYL 100 MCG/2 ML INJECTION (J3010) As Ordered ONE
== END ==
LOC: M LAB 10:10
PROVIDERS: ATTEND Nurse Practitioner Psychiatric/Mental Health
DX: F25.9 Schizoaffective disorder, unspecified (principal); Z51.81 Encounter for therapeutic drug level monitoring

== ENCOUNTER → 2019-01-21 | Outpatient (CLI) | payer MEDICARE, MEDICAID | LOC: M LAB 11:22 | PROVIDERS: ATTEND Nurse Practitioner Psychiatric/Mental Health | DX: F25.9 Schizoaffective disorder, unspecified (principal) ==

== ENCOUNTER → 2019-01-22 | Outpatient (CLI) | payer MEDICARE, MEDICAID | LOC: M LAB 11:35 | PROVIDERS: ATTEND Nurse Practitioner Psychiatric/Mental Health | DX: F25.9 Schizoaffective disorder, unspecified (principal) ==

== ENCOUNTER 2019-02-25 22:10 | Emergency (ER) | payer MEDICARE, MEDICAID ==
[~2019-02-25] VITALS: Ht 144.8 cm; Wt 52.3 kg
[~2019-02-25 22:10] MED LIST changes: -OXYB10TA PO; +OXYB10TA2 PO
[2019-02-25] MEDS ORDERED: SPIR1CAP INH (22:46)
--- NOTE | 2019-02-26 00:38 | REPVR ---
EXAM: CT Head Without Contrast EXAM DATE/TIME: 02/25/2019 11:57 PM CLINICAL HISTORY: 74 years old, female; Injury or trauma; Fall; Initial encounter; Concussion / head injury TECHNIQUE: Imaging protocol: Computed tomography of the head without contrast. Radiation optimization: All CT scans at this facility use at least one of these dose optimization techniques: automated exposure control; mA and/or kV adjustment per patient size (includes targeted exams where dose is matched to clinical indication); or iterative reconstruction. COMPARISON: CT Head without contrast 09/06/2012 5:16 PM FINDINGS: Brain: No acute intracranial hemorrhage. Mild decreased attenuation in periventricular/centrum semiovale white matter. No focal effacement of cortical sulci to indicate acute cortical infarct. Midline shift: No intracranial mass or midline shift. Ventricles: Prominent ventricles and CSF spaces suggest parenchymal volume loss. Bones/joints: No calvarial fracture or destructive process. Sinuses: Imaged paranasal sinuses are normally aerated. Mastoid air cells: Mastoid air cells are unremarkable aside from minor inferior right mastoid fluid and sclerosis. No middle ear fluid or basilar skull fracture Orbits: Optic globes and orbits show no concerning deformity. Soft tissues: No focal extracranial soft tissue swelling. IMPRESSION: 1. No acute intracranial abnormality. 2. Atrophy and chronic microangiopathic change in supratentorial white matter. Electronically signed by: Prateek Moreau On 02/26/2019 00:38:38 AM
--- NOTE | 2019-02-26 00:51 | REPVR ---
EXAM: CT Cervical Spine Without Contrast EXAM DATE/TIME: 02/25/2019 11:57 PM CLINICAL HISTORY: 74 years old, female; Injury or trauma; Fall; Initial encounter; Concussion /head injury TECHNIQUE: Imaging protocol: Computed tomography images of the cervical spine without contrast. Radiation optimization: All CT scans at this facility use at least one of these dose optimization techniques: automated exposure control; mA and/or kV adjustment per patient size (includes targeted exams where dose is matched to clinical indication); or iterative reconstruction. COMPARISON: No relevant prior studies available. FINDINGS: Vertebrae: No traumatic segmental malalignment of cervical spine or craniocervical junction. Vertebral body height is maintained at all levels. No acute fracture. No destructive or blastic cervical spine osseous lesion. Discs/Spinal canal/Neural foramina: Intervertebral disc height is decreased at multiple levels, with typical degenerative pattern and associated endplate, articular pillar and uncovertebral spurs. Osseous neural foraminal stenoses are present C2-3 through C6-7, moderately severe, and mild spinal canal stenosis is present C3-4 through C6-7 Prevertebral Space: Prevertebral soft tissues demonstrate no asymmetry. Lungs: No concerning abnormality of the imaged lung apices. Other findings: Images are limited due to patient motion. IMPRESSION: 1. No acute fracture or traumatic subluxation of the cervical spine. 2. Multilevel degenerative disc and articular pillar arthropathy. Electronically signed by: Prateek Moreau On 02/26/2019 00:50:16 AM
--- NOTE | 2019-02-26 00:53 | REPVR ---
EXAM: CT Lumbar Spine Without Contrast EXAM DATE/TIME: 02/25/2019 11:57 PM CLINICAL HISTORY: 74 years old, female; Injury or trauma; Fall; Initial encounter; Blunt trauma (contusions or hematomas) TECHNIQUE: Imaging protocol: Computed tomography images of the lumbar spine without contrast. Radiation optimization: All CT scans at this facility use at least one of these dose optimization techniques: automated exposure control; mA and/or kV adjustment per patient size (includes targeted exams where dose is matched to clinical indication); or iterative reconstruction. COMPARISON: CT Spine, lumbar w/contrast 09/30/2018 2:23 PM FINDINGS: Sagittal reconstructions show no concerning segmental malalignment. Vertebral body height and morphology is maintained. No acute fracture or destructive process. Degenerative loss of disc height is present at multiple levels, with typical reactive endplate changes and degenerative facet spurring, resulting in varying degrees of osseous canal and foraminal stenosis. No dilatation of the imaged distal abdominal aorta. No enlarged retroperitoneal lymph nodes. Pneumobilia is present and a biliary stent is present. IMPRESSION: No acute fracture or other acute abnormality involving the lumbar spine. Multi-level degenerative disc and facet arthropathy. Electronically signed by: Prateek Moreau On 02/26/2019 00:53:19 AM
[2019-02-26 02:30] VITALS: BP 113/59
--- NOTE | 2019-02-26 08:12 | REP ---
Clinical: Fall. Pain. Technique: Internal rotation, external rotation, and Y view of the left shoulder. Comparison: 12/11/2018 Findings: Moderate arthritic degenerative changes are appreciated. There is hazy blunting and irregular sclerosis of the glenoid rim with inferior spurring as well as heterogeneous sclerosis to the subchondral humeral head with cystic changes and inferior osteophyte. Cortical irregularity and early spurring at the acromioclavicular joint is also appreciated. The subacromial space is normal. No obvious periarticular calcifications are identified. Impression: Moderate osteoarthritic degenerative changes primarily involving the glenohumeral joint. No definite acute fracture or dislocation. However, if the patient remains symptomatic CT may be warranted for further investigation. Electronically Signed by Christofer Reyes MD 02/26/2019 08:04 A
[2019-02-27] MEDS ORDERED: FLOM0.4C39 PO (23:17)
== END 2019-02-26 03:33 | disposition home or self-care (01) ==
LOC: M ED 22:10
DX: S40.012A Contusion of left shoulder, initial encounter (principal); W18.39XA Other fall on same level, initial encounter; Y92.018 Other place in single-family (private) house as the place of occurrence of the external cause; F20.9 Schizophrenia, unspecified; Z79.899 Other long term (current) drug therapy; Z79.82 Long term (current) use of aspirin; Z88.5 Allergy status to narcotic agent; Z88.7 Allergy status to serum and vaccine; Z88.8 Allergy status to other drugs, medicaments and biological substances; F17.210 Nicotine dependence, cigarettes, uncomplicated

== ENCOUNTER 2019-02-27 17:49 | Emergency (ER) | payer MEDICARE, MEDICAID ==
[~2019-02-27] VITALS: Ht 175.3 cm; Wt 56.8 kg
--- NOTE | 2019-02-27 20:12 | REPVR ---
EXAM: CT Lumbar Spine Without Contrast EXAM DATE/TIME: 02/27/2019 7:31 PM CLINICAL HISTORY: 74 years old, female; Pain TECHNIQUE: Imaging protocol: Computed tomography images of the lumbar spine without contrast. Radiation optimization: All CT scans at this facility use at least one of these dose optimization techniques: automated exposure control; mA and/or kV adjustment per patient size (includes targeted exams where dose is matched to clinical indication); or iterative reconstruction. COMPARISON: CT Spine, lumbar w/o contrast 02/26/2019 12:10 AM FINDINGS: Vertebrae: Levoscoliosis. Discs/Spinal canal/Neural foramina: Marked degenerative spondylosis throughout the lumbar spine with disc space narrowing at L1 to, L3-4, and L5-S1 with vacuum phenomenon demonstrated at multiple levels as well as prominent intervertebral osteophytes. Disc osteophyte complex at L1-L2 produces a moderate central spinal stenosis. No significant foraminal stenosis. No lateral recess stenosis. Diffusely bulging annulus at L2-L3 with facet arthropathy results in a mild central spinal stenosis. No foraminal stenosis. No lateral recess stenosis. Diffuse annular bulge at L3-L4 with facet arthropathy results in a mild to moderate central spinal stenosis. No lateral recess stenosis. No foraminal stenosis. Diffusely bulging annulus at L4-L5 with facet arthropathy results in a moderate to severe central spinal stenosis. No foraminal stenosis. No lateral recess stenosis. No central spinal stenosis at L5-S1. Moderate foraminal stenosis on the left secondary to osteophytic encroachment. Other bones/joints: Osteoporosis. Soft tissues: Atherosclerotic calcifications in the abdominal aorta. No aneurysm. Otherwise unremarkable. IMPRESSION: Degenerative spondylosis with multilevel spinal stenoses which is moderate at L1-L2, mild central spinal stenosis at L2-L3, mild to moderate central spinal stenosis at L3-L4, and moderate to severe central spinal stenosis at L4-5. Christofer cristianaconmynor scoliosis. Electronically signed by: Kev Cisse On 02/27/2019 20:12:17 PM
[2019-02-27 20:34] VITALS: BP 141/71
[2019-02-27] MEDS ORDERED: TAMSULOSIN 0.4 MG CAP PO ONE (23:15)
[2019-02-27] MEDS ORDERED: FLOM0.4C39 PO (23:17)
--- NOTE | 2019-03-02 13:02 | ED PDOC ---
Post-Departure Follow-Up kale rosas faxed formal report of ct ls spine for fu Milton Guerra MD Mar 02, 2019 13:02
== END 2019-02-27 23:50 | disposition home or self-care (01) ==
LOC: M ED 17:49
DX: R33.9 Retention of urine, unspecified (principal); M54.5 Low back pain; F20.9 Schizophrenia, unspecified; Z79.899 Other long term (current) drug therapy; Z79.82 Long term (current) use of aspirin; Z88.5 Allergy status to narcotic agent; Z88.7 Allergy status to serum and vaccine; Z88.8 Allergy status to other drugs, medicaments and biological substances; F17.210 Nicotine dependence, cigarettes, uncomplicated

== ENCOUNTER 2019-03-22 18:32 | Inpatient (IN) | payer MEDICARE, MEDICAID ==
[~2019-03-22] VITALS: Ht 144.8 cm; Wt 61.0 kg
[~2019-03-22 18:32] MED LIST changes: +FLOM0.4C39 PO
[2019-03-22 19:35] LABS: BASO % 0.5 % (0.0-1.0); EOS # 0.1 10^3/uL (0.0-0.5); EOS % 1.1 % (0.0-3.0); HEMOGLOBIN 12.4 g/dl (12.0-15.5); LYMPH # 2.6 10^3/uL (1.5-5.0); LYMPH % 34.8 % (24.0-44.0); MEAN CORPUSCULAR HEMOGLOBIN 35.5 pg (27.0-33.0); MEAN CORPUSCULAR HGB CONC 33.5 g/dl (32.0-36.5); NEUTROPHILS # 3.7 10^3/uL (1.5-8.5); NEUTROPHILS % 50.3 % (36.0-66.0); PLATELET COUNT, AUTOMATED 239 10^3/uL (150-450); RED BLOOD COUNT 3.49 10^6/uL (4.00-5.40); WHITE BLOOD COUNT 7.4 10^3/uL (4.0-10.0)
--- NOTE | 2019-03-22 19:40 | ECGEPIP ---
[facility] - ED Test Date: 2019-03-22 Pat Name: BROOKE CARR Department: Room: - Gender: Female Operations Liaison: KATHRYN : 1945 Requested By: Milton Vazquez Order Number: [id number] Reading MD: Milton Vazquez Measurements Intervals [place] Rate: 76 P: 24 [place]: 152 QRS: 9 QRSD: 110 T: 60 QT: 391 QTc: 441 Interpretive Statements SINUS RHYTHM POSSIBLE LEFT ATRIAL ENLARGEMENT NONSPECIFIC T-WAVE ABNORMALITY DELAYED R WAVE PROGRESSION CW 01/31/[address] T WAVE CHANGES Electronically Signed on 03-22-2019 19:40:06 EDT by Milton Vazquez
[2019-03-22] MEDS ORDERED: DEPA1TAB3 PO (20:09)
[2019-03-22] MEDS ORDERED: AMLO5TAB6 PO (20:12)
[2019-03-22] MEDS ORDERED: NS 500 ML IV ONE (20:30)
[2019-03-22] MEDS: LATANOPROST 0.005% OPHTH SOLN 2.5 ML OU SCH (21:00)
[2019-03-22] MEDS: TIMOLOL MALEATE 0.5% OPHTH SOLN 5 ML OU SCH (21:00)
[2019-03-22 21:04] LABS: ALBUMIN 2.5 GM/DL (3.2-5.2); BILIRUBIN,DIRECT 0.3 MG/DL (0.0-0.2); BILIRUBIN,TOTAL 0.5 MG/DL (0.2-1.0); CALCIUM LEVEL 8.6 MG/DL (8.8-10.2); CK-MB VALUE MASS 23.4 NG/ML (<3.6); GLOMERULAR FILTRATION RATE 57.4 (>39); MB/CK RELATIVE INDEX 1.78 (< OR =4); POTASSIUM SERUM 3.5 MEQ/L (3.5-5.1); THYROID STIMULATING HORMONE 1.24 uIU/ML (0.358-3.740); TOTAL PROTEIN 6.2 GM/DL (6.4-8.2); TROPONIN I 0.04 NG/ML (< 0.10); VALPROIC ACID (DEPAKOTE) 16.2 UG/ML (50.0-100.0)
[2019-03-22] MEDS ORDERED: DICL1GEL3 TOP (22:31)
[2019-03-22] MEDS ORDERED: MYRB50TA PO (22:31)
[2019-03-22] MEDS ORDERED: MECL12.575 PO (22:31)
[2019-03-22] MEDS ORDERED: DULO30CA47 PO (22:31)
[2019-03-22] MEDS ORDERED: DULO1CAP6 PO (22:31)
[2019-03-22] MEDS ORDERED: HYDR1CRE30 TOP (22:34)
--- NOTE | 2019-03-22 23:57 | HPEPDOC ---
[facility] Medical History & Physical Date of Admission Mar 22, 2019 Date of Service: Mar 22, 2019 Primary Care Physician: A Other Provider CDS- other Attending Physician: RAIN GUTIERREZ MD History and Physical TIME OF SERVICE: The service 11:30 PM CHIEF COMPLAINT: Falls and weakness HISTORY OF PRESENT ILLNESS: This is a 74 old female who was sent from her halfway for evaluation of falls and weakness. The patient reports "feeling like I'm going to topple". Associated symptoms include muscle aches, and backaches. She has fallen several times but has not hit her head. Prior to the falls she denies feeling dizzy, denies having fevers and denies having chest pain; she does reports having dyspnea and intermittent palpitations. She has lost weight and reports feeling cold all the time. Per discussion with the ED staff she was complaining of shoulder pain after recent fall. X-ray of the shoulder was unremarkable. CPK was elevated and she started on IV fluids. REVIEW OF SYSTEMS: 12 point review of systems negative except as listed in HPI PAST MEDICAL/ SURGICAL HISTORY: Schizoaffective disorder. COPD Prediabetes Depression. Status post lumpectomy for right breast cancer GERD Chronic hypertension Chronic back pain History of pancreatitis Denies history of DC or CVA. SOCIAL HISTORY: Smokes FAMILY HISTORY: Diabetes Anxiety ALLERGIES: Please see below. HOME MEDICATIONS: Please see below. PHYSICAL EXAMINATION: VITAL SIGNS: Please see below. GENERAL APPEARANCE: Slim build, well-developed, not in apparent distress HEENT: Normocephalic, atraumatic. Mucous membranes dry CARDIOVASCULAR: Regular rate and rhythm. No murmurs, rubs or gallops LUNGS: Clear to auscultation bilaterally on room air ABDOMEN: Soft and nontender on palpation MUSCULOSKELETAL: Range of motion intact in all 4 extremities NEUROLOGICAL: Numerous 2-12 are intact. Speech is not dysarthric, strength is 3- 5 in both upper extremities and +4-5 in both lower extremities PSYCHIATRIC: Alert and oriented, able to understand and follow commands LABORATORY DATA: See below. IMAGING: Shoulder x-ray report pending MICROBIOLOGY: Please see below. ASSESSMENT: Ms. Irby is a 74 old female with a past medical history of prediabetes, chronic hypertension, schizoaffective disorder, COPD, and GERD who will be admitted for evaluation of falls associated with myalgias. PLAN: 1. Elevated CK 2/2 myositis (ie inclusion body myositis, thyroid related myositis, polymyositi s, less likely dermatomyositis) vs sequelae of falls Clinically the patient is weak. She also reports losing weight. Plan: Admit to general medical floor/trend CPK, follow-up serum aldolase, LDH, TSH, SHAHZAD, anti-cytoplasmic 5 nucleotidase 1A /hold all statins / IV fluids / capscacin cream for myalgias (allergic to tylenol) 2. Falls Plan: Fall precautions/PT eval to determine if she needs out pt vs in pt rehab 3.Uncontrolled hypertension. Plan: Resume home meds 4.Schizoaffective disorder Plan: Resume home meds 5. Stable COPD Plan: Resume home meds 6.Prediabetes A1c 6.0 in October Plan: f/u finger sticks 7. Depression. Plan: Resume home meds 8. GERD Plan: Resume home meds 9.Chronic back pain Plan: Lidocaine patch / acetaminophen for pain 10.Tobacco abuse. Plan: Tobacco cessation education/nicotine patch DVT prophylaxis with Lovenox. Disposition pending clinical course Vital Signs Vital Signs Date Time Temp Pulse Resp B/P (MAP) Pulse Ox O2 Delivery O2 Flow Rate FiO2 03/22/19 23:17 73 03/22/19 21:17 90 03/22/19 18:51 97.5 03/22/19 18:48 20 169/71 Room Air Laboratory Data Labs 24H Laboratory Tests 2 03/22/19 19:24: Immature Granulocyte % (Auto) 0.3, White Blood Count 7.4, Red Blood Count 3.49L, Hemoglobin 12.4, Hematocrit 37.0, Mean Corpuscular Volume 106.0H, Mean Corpuscular Hemoglobin 35.5H, Mean Corpuscular Hemoglobin Concent 33.5, Red Cell Distribution Width 13.0, Platelet Count 239, Neutrophils (%) (Auto) 50.3, Lymphocytes (%) (Auto) 34.8, Monocytes (%) (Auto) 13.0H, Eosinophils (%) (Auto) 1.1, Basophils (%) (Auto) 0.5, Neutrophils # (Auto) 3.7, Lymphocytes # (Auto) 2.6, Monocytes # (Auto) 1.0H, Eosinophils # (Auto) 0.1, Basophils # (Auto) 0.0, Nucleated Red Blood Cells % (auto) 0.0 03/22/19 20:12: Anion Gap 10, Glomerular Filtration Rate 57.4, Calcium Level 8.6L, Aspartate Amino Transf (AST/SGOT) 82H, Alanine Aminotransferase (ALT/SGPT) 40, Alkaline Phosphatase 209H, Total Bilirubin 0.5, Direct Bilirubin 0.3H, Total Creatine Kinase 1314H, Creatine Kinase MB 23.4H, Creatine Kinase MB Relative Index 1.78, Troponin I 0.04, Total Protein 6.2L, Albumin 2.5L, Albumin/Globulin Ratio 0.68L, Thyroid Stimulating Hormone (TSH) 1.240, Valproic Acid (Depakene) Level 16.2L 03/22/19 20:16: Lactic Acid Level 0.9, Ammonia 15 03/22/19 21:06: Bedside Glucose (Misc Panel) 71L CBC/BMP Laboratory Tests 03/22/19 19:24 Red Blood Count 3.49 L, Mean Corpuscular Volume 106.0 H, Mean Corpuscular Hemoglobin 35.5 H, Mean Corpuscular Hemoglobin Concent 33.5, Red Cell Distribution Width 13.0, Neutrophils (%) (Auto) 50.3, Lymphocytes (%) (Auto) 34.8, Monocytes (%) (Auto) 13.0 H, Eosinophils (%) (Auto) 1.1, Basophils (%) (Auto) 0.5, Neutrophils # (Auto) 3.7, Lymphocytes # (Auto) 2.6, Monocytes # (Auto) 1.0 H, Eosinophils # (Auto) 0.1, Basophils # (Auto) 0.0 03/22/19 20:12 Microbiology Microbiology 03/22/19 Blood Culture, Received Pending Home Medications Scheduled Amitriptyline HCl (Amitriptyline HCl) 25 Mg Tablet, 25 MG PO BID Amlodipine Besylate (Amlodipine Besylate) 5 Mg Tablet, 7.5 MG PO DAILY Aspirin (Aspir 81) 81 Mg Tablet.dr, 81 MG PO DAILY Atorvastatin Calcium (Atorvastatin Calcium) 20 Mg Tablet, 20 MG PO QHS Divalproex Sodium (Depakote) 500 Mg Tablet.dr, 1,000 MG PO QHS Duloxetine HCl (Duloxetine HCl) 30 Mg Capsule.dr, 30 MG PO DAILY TAKES WITH 60MG CAP FOR TOTAL OF 90MG Duloxetine Hcl (Duloxetine HCl) 60 Mg Capsule.dr, 60 MG PO DAILY TAKES WITH 30MG CAP FOR TOTAL OF 90MG Hydrocortisone (Hydrocortisone) 28 Gm Cream..g., 1 APLCT TOP TID APPLY TO AFFECTED AREA OF GROIN AREA Lactase (Lactaid) 3,000 Unit Tablet, 3,000 UNIT PO TID Latanoprost (Xalatan) 0.005 % Kourtney, 1 DROP OU QHS Loratadine (Loratadine) 10 Mg Tablet, 10 MG PO DAILY Magnesium Oxide (Magnesium Oxide) 400 Mg Tab, 400 MG PO DAILY Meclizine HCl (Meclizine HCl) 12.5 Mg Tablet, 12.5 MG PO TID for dizziness Mirabegron (Myrbetriq) 50 Mg Tab.er.24h, 50 MG PO DAILY Multivitamin (Tab-A-Ari) 1 Tab Tab, 1 TAB PO DAILY Omeprazole (Omeprazole) 20 Mg Cap, 20 MG PO DAILY Ospemifene (Osphena) 60 Mg Tablet, 60 MG PO DAILY Timolol Maleate (Timolol Maleate) 0.5 % Kourtney, 1 DROP OU QHS Tiotropium [place] (Spiriva) 18 Mcg Cap.w.dev, 1 INH INH DAILY Scheduled PRN Albuterol Sulfate (Ventolin Hfa) 108 Mcg/Act Aer, 2 PUFFS INH Q4H PRN for SHORTNESS OF BREATH Albuterol Sulfate (Ventolin Hfa) 18 Gm Hfa.aer.ad, 2 PUFF INH QHS PRN for wheezing Diclofenac Sodium (Diclofenac Sodium) 1% 100GM Gel..gram., 2 GM TOP QID PRN for LEFT SHOULDER APPLY TO LEFT SHOULDER Ibuprofen (Ibuprofen) 600 Mg Tablet, 600 MG PO TID PRN for PAIN Trazodone HCl (Trazodone HCl) 50 Mg Tab, 150 MG PO QHS PRN for SLEEP Allergies Coded Allergies: morphine (Verified Allergy, Severe, 'I almost ', 12/19/18) acetaminophen (Verified Allergy, Unknown, unknown, 12/19/18) naproxen (Verified Allergy, Unknown, unknown, 12/19/18) TAKES IBUPROFEN AND ASPIRIN AT HOME oxycodone (Unverified Allergy, Unknown, unknown, 12/19/18) propoxyphene (Verified Allergy, Unknown, unknown, 12/19/18) tetanus toxoid, adsorbed (Verified Allergy, Unknown, unknown, 12/19/18) thiothixene (Verified Adverse Reaction, Intermediate, EPS, 12/19/18) hydrocodone (Verified Adverse Reaction, Mild, 'I fall', 12/19/18) hydroxyzine (Verified Adverse Reaction, Mild, vomits, 12/19/18) A-FIB/CHADSVASC A-FIB History Current/History of A-Fib/PAF?: No Current PO Anticoag Therapy: No RAIN GUTIERREZ MD Mar 22, 2019 23:57
[2019-03-23] VITALS (10 sets, daily range): BP systolic 129–173; BP diastolic 77–96
[2019-03-23] MEDS ORDERED: NS 1,000 ML IV SCH (02:45)
[2019-03-23] MEDS ORDERED: ALBUTEROL 90 MCG/ACT 8GM HFA INHALER INH PRN ×2 (02:45)
[2019-03-23] MEDS ORDERED: PILL CUTTER 1 EACH XX PRN (03:15)
[2019-03-23] MEDS: DIVALPROEX 500 MG TAB PO SCH ×2 (03:55→21:38)
[2019-03-23] MEDS: ATORVASTATIN 20 MG TAB PO SCH ×2 (03:55→21:39)
[2019-03-23] MEDS ORDERED: LIDOCAINE 4% CREAM 5GM (LMX4) TOP PRN (04:45)
[2019-03-23 08:37] LABS: HEMOGLOBIN 12.4 g/dl (12.0-15.5); MEAN CORPUSCULAR HEMOGLOBIN 34.8 pg (27.0-33.0); MEAN CORPUSCULAR HGB CONC 33.5 g/dl (32.0-36.5); MEAN CORPUSCULAR VOLUME 103.9 fl (80.0-96.0); PLATELET COUNT, AUTOMATED 229 10^3/uL (150-450); RED BLOOD COUNT 3.56 10^6/uL (4.00-5.40); WHITE BLOOD COUNT 7.1 10^3/uL (4.0-10.0)
[2019-03-23] MEDS ORDERED: MECLIZINE 12.5 MG TAB PO SCH (09:00)
[2019-03-23] MEDS ORDERED: DULoxetine 30 MG CAP (CYMBALTA) PO SCH (09:00)
[2019-03-23] MEDS: CAPSAICIN 0.025% CR 60 GM TOP SCH ×4 (09:00→21:00)
[2019-03-23] MEDS ORDERED: PREVNAR 13 VACCINE SYRINGE (CPT CODE:90670) IM ONE (09:00)
[2019-03-23] MEDS ORDERED: LORATADINE 10 MG TAB PO SCH (09:00)
--- NOTE | 2019-03-23 09:08 | REP ---
LEFT SHOULDER ONE VIEW: 03/22/2019. Clinical history: Trauma. Comparison: 12/11/2018. Findings: A single AP portable semi-erect view of the left shoulder was performed. There are moderately severe degenerative changes at the glenohumeral joint. I see no definite subluxation or dislocation. The AC joint shows slight elevation of the clavicle in relationship to the acromion. Bones are demineralized. No visible or displaced fracture. Calcified somewhat tortuous aorta. Impression: 1. Degenerative changes of the glenohumeral joint without definite acute fracture or subluxation. 2. Demineralization. 3. Suggest a slight elevation of the clavicle at the AC joint. This may be chronic. However, the exam is limited to a single portable AP view. Electronically Signed by Jesse Pederson MD 03/23/2019 01:07 P
[2019-03-23 09:28] LABS: BLOOD UREA NITROGEN 30 MG/DL (7-18); CALCIUM LEVEL 8.4 MG/DL (8.8-10.2); CARBON DIOXIDE LEVEL 24 MEQ/L (21-32); CHLORIDE LEVEL 109 MEQ/L (98-107); CPK CREATINE PHOSPHOKINASE 832 U/L (26-192); CREATININE FOR GFR 0.79 MG/DL (0.55-1.30); GLOMERULAR FILTRATION RATE > 60.0 (>39); GLUCOSE, FASTING 102 MG/DL (70-100); LDH LACTATE DEHYDROGENASE 226 U/L (84-246); POTASSIUM SERUM 2.6 MEQ/L (3.5-5.1); SODIUM LEVEL 143 MEQ/L (136-145)
[2019-03-23] MEDS: ENOXAPARIN 30 MG/0.3 ML SYR (J1650) SC SCH (09:51)
[2019-03-23] MEDS: MAGNESIUM OXIDE 400 MG TAB (MAG-OX) PO SCH (09:52)
[2019-03-23] MEDS: ASPIRIN 81 MG ENTERIC TAB PO SCH (09:52)
[2019-03-23] MEDS: DULoxetine 30 MG CAP (CYMBALTA) PO SCH (09:52)
[2019-03-23] MEDS: NICOTINE 7 MG/24 HR TRANSDERMAL TD SCH (09:52)
[2019-03-23] MEDS: AMITRIPTYLINE 25 MG TAB PO SCH ×2 (09:52→21:39)
[2019-03-23] MEDS: amLODIPine 5 MG TAB PO SCH (09:53)
[2019-03-23] MEDS: OMEPRAZOLE 20 MG CAP PO SCH (09:53)
[2019-03-23] MEDS: KCL 40MEQ in NS 1000ML 1,000 ML IV SCH ×2 (10:53→21:38)
[2019-03-23] MEDS: TIOTROPIUM INHALER/CAPSULE (SPIRIVA) INH SCH (11:30)
--- NOTE | 2019-03-23 12:58 | MHCRPDOC ---
[facility] Consultation Consultation DATE OF CONSULTATION: 03/23/19 CONSULTATION REQUESTED BY: Medicine service Date of Service: 03/23/2019 Chief Complaint Consultation for medications. History of Present Illness The patient, a 74-year-old woman, is admitted for failure to thrive to the medical floor. A consultation is called as she has reported history of depression and has reported some depression on her presentation. She has a reported history of schizoaffective disorder. When I attempted to meet with the patient it became abundantly clear that the patient was in hypoactive delirium, unable to know the date, where she is, the president, or any other biographical information. Her attention waned and the majority of the interview had to be extracted from previous notes. Review Of Systems Unable to perform due to patient's focus and concentration. Past Psychiatric History Patient has a history of schizoaffective disorder with multiple admissions, last in January 2018. However, her previous admission was significant for a diagnosis of neurocognitive disorder as primary complaint. She was discharged at that time, Depakote 500 mg nightly and Cymbalta 60 mg daily, with the final diagnosis of bipolar. No notations of suicide attempts. Allergies Please see below. Family Psychiatric History Reportedly has reported that males have substance abuse problems and Mental Health. Social History The patient reportedly grew up in the local area, has never been , has one daughter who provided most of the psychosocial information in the past. She resides in [facility] community residence. Subsists on Social Security Disability, graduated the 10th grade. Reportedly has lived in [facility] for 30 years at this time. Reportedly had 8 siblings. No history of significant legal problems or service. Substance Abuse History Unclear from notes. Medical History History of breast cancer in the past. Significant medical comorbidities. Mental Status Examination General: Poor hygiene. Speech: Spontaneous at times. Thought processes: Tangential. MSK: Smooth and coordinated gait, no signs of tremors or involuntary orofacial movements Thought content: Disorganized. Abstract reasoning, and computation: Impaired. Description of associations: Impaired. Description of abnormal or psychotic thoughts: Denies any suicidal or homicidal ideation. Denies any auditory or visual hallucinations. Does not appear to be responding to internal stimuli. Does not appear to be endorsing any bizarre or paranoid ideation. Judgment: Poor. Insight: Poor. Orientation: Alert, but not orientated. Cognition: Delirious. Recent and remote memory: Impaired. Attention span and concentration: Impaired. Fund of knowledge: Adequate Mood: "okay" Affect: Flat with little reactivity. Diagnoses Hypoactive delirium. Major neurocognitive disorder, unspecified. Assessment and Plan 74-year-old woman with a long history of mental illness, however, presenting with increasing memory problems. It appears that previous psychiatric admissions have suggested she is becoming increasingly more confused likely secondary to chronic medical problems. Initial Treatment Plan Recommend continue medical training for hypoactive delirium, hold medications, then resume once delirium has resolved. Will likely need TLS or other supportive care live-in or even a retirement due to her impairment level. Time Spent 20 minutes. Sunday Vital Signs Vital Signs Date Time Temp Pulse Resp B/P (MAP) Pulse Ox O2 Delivery O2 Flow Rate FiO2 03/23/19 09:53 80 159/95 03/23/19 02:00 99.0 20 97 03/22/19 18:48 Room Air Laboratory Data 24H Labs Laboratory Tests 2 03/22/19 19:24: Immature Granulocyte % (Auto) 0.3, White Blood Count 7.4, Red Blood Count 3.49L, Hemoglobin 12.4, Hematocrit 37.0, Mean Corpuscular Volume 106.0H, Mean Corpuscular Hemoglobin 35.5H, Mean Corpuscular Hemoglobin Concent 33.5, Red Cell Distribution Width 13.0, Platelet Count 239, Neutrophils (%) (Auto) 50.3, Lymphocytes (%) (Auto) 34.8, Monocytes (%) (Auto) 13.0H, Eosinophils (%) (Auto) 1.1, Basophils (%) (Auto) 0.5, Neutrophils # (Auto) 3.7, Lymphocytes # (Auto) 2.6, Monocytes # (Auto) 1.0H, Eosinophils # (Auto) 0.1, Basophils # (Auto) 0.0, Nucleated Red Blood Cells % (auto) 0.0 03/22/19 20:12: Anion Gap 10, Glomerular Filtration Rate 57.4, Calcium Level 8.6L, Aspartate Amino Transf (AST/SGOT) 82H, Alanine Aminotransferase (ALT/SGPT) 40, Alkaline Phosphatase 209H, Total Bilirubin 0.5, Direct Bilirubin 0.3H, Total Creatine Kinase 1314H, Creatine Kinase MB 23.4H, Creatine Kinase MB Relative Index 1.78, Troponin I 0.04, Total Protein 6.2L, Albumin 2.5L, Albumin/Globulin Ratio 0.68L, Thyroid Stimulating Hormone (TSH) 1.240, Valproic Acid (Depakene) Level 16.2L 03/22/19 20:16: Lactic Acid Level 0.9, Ammonia 15 03/22/19 21:06: Bedside Glucose (Misc Panel) 71L 03/23/19 08:03: Nucleated Red Blood Cells % (auto) 0.0, Anion Gap 10, Glomerular Filtration Rate > 60.0, Blood Urea Nitrogen 30H, Creatinine 0.79, Sodium Level 143, Potassium Level 2.6#*L, Chloride Level 109H, Carbon Dioxide Level 24, Calcium Level 8.4L, Lactate Dehydrogenase 226, Total Creatine Kinase 832H, Thyroid Stimulating Hormone (TSH) 1.600 Home Medications Current Medications Current Medications Medications (Trade) Dose Ordered Sig/Juana Route PRN Reason Start Time Stop Time Status Last Admin Dose Admin Albuterol Sulfate (Proventil, Ventolin Hfa) 2 puff Q4H PRN INH SHORTNESS OF BREATH 03/23/19 02:45 Albuterol Sulfate (Proventil, Ventolin Hfa) 2 puff QHS PRN INH wheezing 03/23/19 02:45 Amitriptyline HCl (Elavil) 25 mg BID PO 03/23/19 09:00 03/23/19 09:52 Amlodipine Besylate (Norvasc) 7.5 mg DAILY PO 03/23/19 09:00 03/23/19 09:53 Aspirin (Ecotrin) 81 mg DAILY PO 03/23/19 09:00 03/23/19 09:52 Atorvastatin Calcium (Lipitor) 20 mg QHS PO 03/22/19 21:00 03/23/19 03:55 Capsaicin (Zostrix 0.025%) apply to arms and legs ... QID TOP 03/23/19 09:00 Divalproex Sodium (Depakote) 1,000 mg QHS PO 03/22/19 21:00 03/23/19 03:55 Duloxetine HCl (Cymbalta) 30 mg DAILY PO 03/23/19 09:00 03/23/19 03:03 DC Duloxetine HCl (Cymbalta) 90 mg DAILY PO 03/23/19 09:00 03/23/19 09:52 Enoxaparin Sodium (Lovenox) 30 mg DAILY SC 03/23/19 09:00 03/23/19 09:51 Home Med (Med Rec Complete!) ASDIRECTED XX 03/22/19 22:45 03/22/19 22:37 DC Latanoprost (Xalatan 0.005% Op Soln) 1 drop QHS OU 03/22/19 21:00 Lidocaine HCl (Lmx 4/Anecream) 2 dose BID PRN TOP muscle aches 03/23/19 04:45 Loratadine (Claritin) 10 mg DAILY PO 03/23/19 09:00 03/23/19 09:52 Magnesium Oxide (Mag-Ox) 400 mg DAILY PO 03/23/19 09:00 03/23/19 09:52 Meclizine HCl (Antivert) 12.5 mg TID PO 03/23/19 09:00 03/23/19 09:53 Miscellaneous (Unresolved Patient Own Med Order) SEE LABEL COMMENTS DAILY XX 03/23/19 09:00 Miscellaneous (Unresolved Patient Own Med Order) SEE LABEL COMMENTS DAILY XX 03/23/19 09:00 Nicotine (Nicoderm Cq 7 Mg) 1 patch DAILY TD 03/23/19 09:00 03/23/19 09:52 Omeprazole (PriLOSEC) 20 mg DAILY PO 03/23/19 09:00 03/23/19 09:53 Patient Own Medication (Patient'S Own Med) 1 TAB DAILY PO 03/23/19 09:00 UNV Patient Own Medication (Patient'S Own Med) 1 TAB DAILY PO 03/23/19 09:00 UNV Potassium Chloride/Sodium Chloride 1,000 ml @ 100 mls/hr Q10H IV 03/23/19 10:30 03/23/19 10:53 Sodium Chloride 1,000 ml @ 60 mls/hr [id number] IV 03/23/19 02:45 03/23/19 10:10 DC 03/23/19 03:56 Timolol Maleate (Timoptic 0.5% Ophth Kourtney) 1 drop QHS OU 03/22/19 21:00 Tiotropium [place] (Spiriva Handihaler) 1 inhalation DAILY@0800 INH 03/23/19 08:00 03/23/19 11:30 Trazodone HCl (Desyrel) 150 mg QHS PRN PO SLEEP 03/23/19 02:45 Scheduled Amitriptyline HCl (Amitriptyline HCl) 25 Mg Tablet, 25 MG PO BID, (Reported) Amlodipine Besylate (Amlodipine Besylate) 5 Mg Tablet, 7.5 MG PO DAILY, (Reported) Aspirin (Aspir 81) 81 Mg Tablet.dr, 81 MG PO DAILY, (Reported) Atorvastatin Calcium (Atorvastatin Calcium) 20 Mg Tablet, 20 MG PO QHS, (Reported) Divalproex Sodium (Depakote) 500 Mg Tablet.dr, 1,000 MG PO QHS, (Reported) Duloxetine HCl (Duloxetine HCl) 30 Mg Capsule.dr, 30 MG PO DAILY, (Reported) TAKES WITH 60MG CAP FOR TOTAL OF 90MG Duloxetine Hcl (Duloxetine HCl) 60 Mg Capsule.dr, 60 MG PO DAILY, (Reported) TAKES WITH 30MG CAP FOR TOTAL OF 90MG Hydrocortisone (Hydrocortisone) 28 Gm Cream..g., 1 APLCT TOP TID, (Reported) APPLY TO AFFECTED AREA OF GROIN AREA Lactase (Lactaid) 3,000 Unit Tablet, 3,000 UNIT PO TID, (Reported) Latanoprost (Xalatan) 0.005 % Kourtney, 1 DROP OU QHS, (Reported) Loratadine (Loratadine) 10 Mg Tablet, 10 MG PO DAILY, (Reported) Magnesium Oxide (Magnesium Oxide) 400 Mg Tab, 400 MG PO DAILY, (Reported) Meclizine HCl (Meclizine HCl) 12.5 Mg Tablet, 12.5 MG PO TID for dizziness, (Reported) Mirabegron (Myrbetriq) 50 Mg Tab.er.24h, 50 MG PO DAILY, (Reported) Multivitamin (Tab-A-Ari) 1 Tab Tab, 1 TAB PO DAILY, (Reported) Omeprazole (Omeprazole) 20 Mg Cap, 20 MG PO DAILY, (Reported) Ospemifene (Osphena) 60 Mg Tablet, 60 MG PO DAILY, (Reported) Timolol Maleate (Timolol Maleate) 0.5 % Kourtney, 1 DROP OU QHS, (Reported) Tiotropium [place] (Spiriva) 18 Mcg Cap.w.dev, 1 INH INH DAILY, (Reported) Scheduled PRN Albuterol Sulfate (Ventolin Hfa) 108 Mcg/Act Aer, 2 PUFFS INH Q4H PRN for SHORTNESS OF BREATH, (Reported) Albuterol Sulfate (Ventolin Hfa) 18 Gm Hfa.aer.ad, 2 PUFF INH QHS PRN for wheezing, (Reported) Diclofenac Sodium (Diclofenac Sodium) 1% 100GM Gel..gram., 2 GM TOP QID PRN for LEFT SHOULDER, (Reported) APPLY TO LEFT SHOULDER Ibuprofen (Ibuprofen) 600 Mg Tablet, 600 MG PO TID PRN for PAIN, (Reported) Trazodone HCl (Trazodone HCl) 50 Mg Tab, 150 MG PO QHS PRN for SLEEP, (Reported) Allergies Coded Allergies: morphine (Verified Allergy, Severe, 'I almost ', 12/19/18) acetaminophen (Verified Allergy, Unknown, unknown, 12/19/18) naproxen (Verified Allergy, Unknown, unknown, 12/19/18) TAKES IBUPROFEN AND ASPIRIN AT HOME oxycodone (Unverified Allergy, Unknown, unknown, 12/19/18) propoxyphene (Verified Allergy, Unknown, unknown, 12/19/18) tetanus toxoid, adsorbed (Verified Allergy, Unknown, unknown, 12/19/18) thiothixene (Verified Adverse Reaction, Intermediate, EPS, 12/19/18) hydrocodone (Verified Adverse Reaction, Mild, 'I fall', 12/19/18) hydroxyzine (Verified Adverse Reaction, Mild, vomits, 12/19/18) REVA BLOOM DO Mar 23, 2019 12:58
--- NOTE | 2019-03-23 14:59 | IPNPDOC ---
Text Note Date of Service The patient was seen on 03/23/19. NOTE Subjective: Patient continues to have mild confusion, she is not oriented. She stated that she is depressed because she didn't see her daughter for prolonged period of time. She complains of loss of appetite, energy, loss of interest in daily activities. Objective: GENERAL APPEARANCE: Slim build, well-developed, not in apparent distress HEENT: Normocephalic, atraumatic. Mucous membranes dry CARDIOVASCULAR: Regular rate and rhythm. No murmurs, rubs or gallops LUNGS: Clear to auscultation bilaterally on room air ABDOMEN: Soft and nontender on palpation MUSCULOSKELETAL: Range of motion intact in all 4 extremities NEUROLOGICAL: Numerous 2-12 are intact. Nonfocal Ms. Irby is a 74 old female the past medical history of prediabetes, chronic hypertension, schizoaffective disorder, COPD, and GERD who will be admitted for evaluation of falls and confusion. Altered mental status Patient continues to be mildly confused. I talked to psychiatrist Dr. Molina, he thinks patient developed hypoactive delirium secondary to depression, await recommendation Social service on board, most likely patient will need fdc for placement We will check UA TSH within normal limit Deconditioning Secondary to poor oral intake secondary to ongoing depression follow-up serum aldolase, LDH, SHAHZAD, anti-cytoplasmic 5 nucleotidase 1A to rule out myopathy PT/OT evaluation Depression Await psych recommendation There is question if patient took her antidepressants Continue home antidepressants Falls Fall precautions/PT eval Rhabdomyolysis Secondary to fall. CPK 1314 on admission, improved today Continue IV fluid, continue to monitor the kidney function Hypertension Continue home meds hypokalemia Replaced Schizoaffective disorder Resume home meds Prediabetes A1c 6.0 in October Follow-up with PCP in the outpatient settings GERD Resume home meds Chronic back pain Plan: Lidocaine patch / acetaminophen for pain 10.Tobacco abuse. Plan: Tobacco cessation education/nicotine patch VS,Fishbone, I+O VS, Fishbone, I+O Laboratory Tests 03/22/19 19:24 Red Blood Count 3.49 L, Mean Corpuscular Volume 106.0 H, Mean Corpuscular Hemoglobin 35.5 H, Mean Corpuscular Hemoglobin Concent 33.5, Red Cell Distribution Width 13.0, Neutrophils (%) (Auto) 50.3, Lymphocytes (%) (Auto) 34.8, Monocytes (%) (Auto) 13.0 H, Eosinophils (%) (Auto) 1.1, Basophils (%) (Auto) 0.5, Neutrophils # (Auto) 3.7, Lymphocytes # (Auto) 2.6, Monocytes # (Auto) 1.0 H, Eosinophils # (Auto) 0.1, Basophils # (Auto) 0.0 03/22/19 20:12 03/23/19 08:03 Red Blood Count 3.56 L, Mean Corpuscular Volume 103.9 H, Mean Corpuscular Hemoglobin 34.8 H, Mean Corpuscular Hemoglobin Concent 33.5, Red Cell Distribution Width 12.7, Calcium Level 8.4 L Vital Signs Date Time Temp Pulse Resp B/P (MAP) Pulse Ox O2 Delivery O2 Flow Rate FiO2 03/23/19 10:00 78 146/85 (105) 82 158/96 (116) 162/94 (116) 03/23/19 02:00 99.0 20 97 03/22/19 18:48 Room Air I&O- Last 24 Hours up to 6 AM 03/23/19 06:00 Intake Total 1000 ml Balance 1000 ml MARIPOSA SOTO DO Mar 23, 2019 14:59
[2019-03-23] MEDS: traZODone 50 MG TAB PO PRN (21:38)
[2019-03-23] MEDS: LATANOPROST 0.005% OPHTH SOLN 2.5 ML OU SCH (21:39)
[2019-03-23] MEDS: TIMOLOL MALEATE 0.5% OPHTH SOLN 5 ML OU SCH (21:39)
[2019-03-23] MEDS ORDERED: OLANZapine 2.5MG TABLET PO ONE (23:30)
[2019-03-24 06:00] VITALS: BP 172/90
[2019-03-24] MEDS: KCL 40MEQ in NS 1000ML 1,000 ML IV SCH (07:05)
[2019-03-24] MEDS: TIOTROPIUM INHALER/CAPSULE (SPIRIVA) INH SCH (07:46)
[2019-03-24] MEDS: CAPSAICIN 0.025% CR 60 GM TOP SCH ×4 (09:00→22:03)
[2019-03-24] MEDS: ENOXAPARIN 30 MG/0.3 ML SYR (J1650) SC SCH (09:48)
[2019-03-24] MEDS: amLODIPine 5 MG TAB PO SCH (09:49)
[2019-03-24] MEDS: AMITRIPTYLINE 25 MG TAB PO SCH ×2 (09:50→22:05)
[2019-03-24] MEDS: ASPIRIN 81 MG ENTERIC TAB PO SCH (09:50)
[2019-03-24] MEDS: OMEPRAZOLE 20 MG CAP PO SCH (09:51)
[2019-03-24] MEDS: DULoxetine 30 MG CAP (CYMBALTA) PO SCH (09:51)
[2019-03-24] MEDS: MAGNESIUM OXIDE 400 MG TAB (MAG-OX) PO SCH (09:52)
[2019-03-24] MEDS: NICOTINE 7 MG/24 HR TRANSDERMAL TD SCH (09:52)
[2019-03-24 14:45] VITALS: BP 165/80
--- NOTE | 2019-03-24 15:06 | IPNPDOC ---
Text Note Date of Service The patient was seen on 03/24/19. NOTE Subjective: Patient continues to have moderate confusion, she is not oriented in time. Patient was agitated overnight, received olanzapine IV Objective: GENERAL APPEARANCE: Slim build, well-developed, not in apparent distress HEENT: Normocephalic, atraumatic. Mucous membranes dry CARDIOVASCULAR: Regular rate and rhythm. No murmurs, rubs or gallops LUNGS: Clear to auscultation bilaterally on room air ABDOMEN: Soft and nontender on palpation MUSCULOSKELETAL: Range of motion intact in all 4 extremities NEUROLOGICAL: Numerous 2-12 are intact. Nonfocal Ms. Irby is a 74 old female the past medical history of prediabetes, chronic hypertension, schizoaffective disorder, COPD, and GERD who will be admitted for evaluation of falls and confusion. Altered mental status Patient continues to be mildly confused. I talked to psychiatrist Dr. Molina, he thinks patient developed hypoactive delirium secondary to depression Seroquel 12.5 BID I will check the level of Depakote Depakote and duloxetine on hold for today Social service on board UA wnl Frequent reorientation TSH within normal limit Deconditioning Secondary to poor oral intake secondary to ongoing depression follow-up serum aldolase, LDH, SHAHZAD, anti-cytoplasmic 5 nucleotidase 1A to rule out myopathy PT/OT evaluation Depression Continue home antidepressants Fall precautions/PT eval Rhabdomyolysis Secondary to fall. CPK 1314 on admission, improved Continue IV fluid, continue to monitor the kidney function Hypertension Continue home meds hypokalemia Replaced Schizoaffective disorder Resume home meds Prediabetes A1c 6.0 in October Follow-up with PCP in the outpatient settings GERD Resume home meds Chronic back pain Plan: Lidocaine patch / acetaminophen for pain 10.Tobacco abuse. Plan: Tobacco cessation education/nicotine patch VS,Fishbone, I+O VS, Fishbone, I+O Vital Signs Date Time Temp Pulse Resp B/P (MAP) Pulse Ox O2 Delivery O2 Flow Rate FiO2 03/24/19 09:49 79 172/90 03/24/19 06:00 98.3 20 94 03/22/19 18:48 Room Air I&O- Last 24 Hours up to 6 AM 03/24/19 06:00 Intake Total 220 ml Output Total 200 ml Balance 20 ml MARIPOSA SOTO DO Mar 24, 2019 15:06
[2019-03-24 16:09] LABS: HEMATOCRIT 39.4 % (36.0-47.0); HEMOGLOBIN 13.1 g/dl (12.0-15.5); MEAN CORPUSCULAR HEMOGLOBIN 34.8 pg (27.0-33.0); MEAN CORPUSCULAR HGB CONC 33.2 g/dl (32.0-36.5); MEAN CORPUSCULAR VOLUME 104.8 fl (80.0-96.0); PLATELET COUNT, AUTOMATED 211 10^3/uL (150-450); RED BLOOD COUNT 3.76 10^6/uL (4.00-5.40); WHITE BLOOD COUNT 8.8 10^3/uL (4.0-10.0)
[2019-03-24 16:33] LABS: BLOOD UREA NITROGEN 14 MG/DL (7-18); CALCIUM LEVEL 8.5 MG/DL (8.8-10.2); CARBON DIOXIDE LEVEL 25 MEQ/L (21-32); CHLORIDE LEVEL 112 MEQ/L (98-107); CREATININE FOR GFR 0.68 MG/DL (0.55-1.30); GLOMERULAR FILTRATION RATE > 60.0 (>39); GLUCOSE, FASTING 92 MG/DL (70-100); POTASSIUM SERUM 3.8 MEQ/L (3.5-5.1); SODIUM LEVEL 144 MEQ/L (136-145); VALPROIC ACID (DEPAKOTE) 61.9 UG/ML (50.0-100.0)
[2019-03-24] MEDS: KETOROLAC 0.5% OPHTH SOLN OD SCH ×2 (17:00→22:03)
[2019-03-24] MEDS: prednisoLONE ACET 1% OPHTH SUSP 5ML OD SCH ×2 (17:00→22:04)
[2019-03-24] MEDS: TOBRAMYCIN 0.3% OPHTH SOLN 5 ML OD SCH ×2 (17:00→22:04)
[2019-03-24 20:00] VITALS: BP 154/86
[2019-03-24] MEDS: TIMOLOL MALEATE 0.5% OPHTH SOLN 5 ML OU SCH (22:04)
[2019-03-24] MEDS: LATANOPROST 0.005% OPHTH SOLN 2.5 ML OU SCH (22:04)
[2019-03-24] MEDS: traZODone 50 MG TAB PO PRN (22:05)
[2019-03-24] MEDS: ATORVASTATIN 20 MG TAB PO SCH (22:05)
[2019-03-24] MEDS: QUEtiapine FUMARATE 12.5 MG HALF-TAB PO SCH (22:05)
[2019-03-25 04:00] VITALS: BP 152/86
[2019-03-25 07:01] LABS: HEMATOCRIT 37.9 % (36.0-47.0); HEMOGLOBIN 12.8 g/dl (12.0-15.5); MEAN CORPUSCULAR HEMOGLOBIN 34.5 pg (27.0-33.0); MEAN CORPUSCULAR HGB CONC 33.8 g/dl (32.0-36.5); MEAN CORPUSCULAR VOLUME 102.2 fl (80.0-96.0); PLATELET COUNT, AUTOMATED 220 10^3/uL (150-450); RED BLOOD COUNT 3.71 10^6/uL (4.00-5.40); WHITE BLOOD COUNT 7.9 10^3/uL (4.0-10.0)
[2019-03-25] MEDS: TIOTROPIUM INHALER/CAPSULE (SPIRIVA) INH SCH (07:44)
[2019-03-25] MEDS: ENOXAPARIN 30 MG/0.3 ML SYR (J1650) SC SCH (08:54)
[2019-03-25] MEDS: amLODIPine 5 MG TAB PO SCH (08:55)
[2019-03-25] MEDS: NICOTINE 7 MG/24 HR TRANSDERMAL TD SCH (08:55)
[2019-03-25] MEDS: AMITRIPTYLINE 25 MG TAB PO SCH ×2 (08:57→20:27)
[2019-03-25] MEDS: ASPIRIN 81 MG ENTERIC TAB PO SCH (08:57)
[2019-03-25] MEDS: QUEtiapine FUMARATE 12.5 MG HALF-TAB PO SCH ×2 (08:57→20:27)
[2019-03-25] MEDS: OMEPRAZOLE 20 MG CAP PO SCH (08:57)
[2019-03-25] MEDS: KETOROLAC 0.5% OPHTH SOLN OD SCH ×4 (08:58→20:28)
[2019-03-25] MEDS: MAGNESIUM OXIDE 400 MG TAB (MAG-OX) PO SCH (08:58)
[2019-03-25] MEDS: CAPSAICIN 0.025% CR 60 GM TOP SCH ×4 (08:58→20:26)
[2019-03-25] MEDS: prednisoLONE ACET 1% OPHTH SUSP 5ML OD SCH ×4 (08:59→20:27)
[2019-03-25] MEDS: TOBRAMYCIN 0.3% OPHTH SOLN 5 ML OD SCH ×4 (08:59→20:27)
--- NOTE | 2019-03-25 11:12 | IPNPDOC ---
Subjective Date Seen The patient was seen on 03/25/19. Subjective Chief Complaint/HPI Patient is awake, alert, oriented 3, in no apparent distress but as per nursing. At times she becomes confused and very agitated, during my visit. She was very pleasant and cooperative General: Denies: ROS Unobtainable, Chills, Night Sweats, Fatigue, Malaise, Normal Appetite, Other Symptoms Skin: Denies: Rash, Lesions, Jaundice, Bruising, Itching, Dry, Breakdown, Nail Changes, Other Pulmonary: Denies: Dyspnea, Cough, Pleuritic Chest Pain, Other Symptoms Cardiovascular: Denies: Chest Pain, Palpitations, Orthopnea, Paroxysmal Noc. Dyspnea, Edema, Lt Headedness, Other Symptoms Gastrointestinal: Denies: Nausea, Vomiting, Abdominal Pain, Diarrhea, Constipation, Melena, Hematochezia, Other Symptoms Genitourinary: Denies: Dysuria, Frequency, Incontinence, Hematuria, Retention, Other Symptoms Hematologic: Denies: Bruising, Bleeding Excessively, Petecchia, Purpura, Enlarged Lymph Nodes, Other Hematologic Musculoskeletal: Denies: Neck Pain, Back Pain, Shoulder Pain, Arm Pain, Hand Pain, Leg Pain, Foot Pain, Joint Pain, Muscle Pain, Spasms, Other Symptoms Neurological: Denies: Weakness, Numbness, Incoordination, Change in speech, Confusion, Seizures, Other Symptoms Objective Physical Examination General Exam: Positive: Alert, Cooperative Eye Exam: Positive: PERRLA, Conjunctiva & lids normal ENT Exam: Positive: Atraumatic, Mucous membr. moist/pink Neck Exam: Positive: Supple Chest Exam: Positive: Clear to auscultation, Normal air movement Heart Exam: Positive: Rate Normal, Normal S1, Normal S2 Abdomen Exam: Positive: Normal bowel sounds, Soft Skin Exam: Positive: Nl turgor and temperature Assessment /Plan Problems (1) Delirium Status: Acute Problem Text: Patient most likely has a delirium Etiology is still unknown at this point Has been started on Seroquel, which will continue the meantime Haldol when necessary as needed for agitation Continue home meds (2) Dehydration Status: Resolved Problem Text: Dehydration is resolved with IV fluids Encourage oral intake of liquids , Urine creatinine essentially within normal limits DD home meds (3) Elevated MCV Problem Text: Vitamin B12 and folic acid levels have been ordered Further, as per pending lab work Plan/VTE VTE Prophylaxis Ordered?: Yes VS, I&O, 24H, Fishbone Vital Signs/I&O Vital Signs Date Time Temp Pulse Resp B/P (MAP) Pulse Ox O2 Delivery O2 Flow Rate FiO2 03/25/19 08:55 98 152/86 03/25/19 04:00 98.9 19 96 03/22/19 18:48 Room Air I&O- Last 24 Hours up to 6 AM 03/25/19 06:00 Intake Total 1280 ml Balance 1280 ml Laboratory Data 24H LABS Laboratory Tests 2 03/24/19 15:38: Nucleated Red Blood Cells % (auto) 0.0, Anion Gap 7L, Glomerular Filtration Rate > 60.0, Blood Urea Nitrogen 14#, Creatinine 0.68, Sodium Level 144, Potassium Level 3.8#, Chloride Level 112H, Carbon Dioxide Level 25, Calcium Level 8.5L, Valproic Acid (Depakene) Level 61.9 03/25/19 06:34: Nucleated Red Blood Cells % (auto) 0.0 CBC/BMP Laboratory Tests 03/24/19 15:38 Red Blood Count 3.76 L, Mean Corpuscular Volume 104.8 H, Mean Corpuscular Hemoglobin 34.8 H, Mean Corpuscular Hemoglobin Concent 33.2, Red Cell Distribut ion Width 13.1, Calcium Level 8.5 L 03/25/19 06:34 Red Blood Count 3.71 L, Mean Corpuscular Volume 102.2 H, Mean Corpuscular Hemoglobin 34.5 H, Mean Corpuscular Hemoglobin Concent 33.8, Red Cell Distribution Width 13.0 Microbiology Microbiology 03/22/19 Blood Culture - Preliminary, Resulted No Growth after 48 hours. All Specime... KRISTINE ARAGON MD Mar 25, 2019 11:12
[2019-03-25] MEDS ORDERED: HALOPERIDOL 5 MG/ML VIAL (J1630) IV PRN (11:15)
--- NOTE | 2019-03-25 14:20 | REP ---
REASON: Pain after trauma. COMPARISON: None. FINDINGS: The hip joint space is symmetric and relatively well maintained. There is no acute or destructive osseous lesion. Electronically Signed by Maximiliano Rojas DO 03/25/2019 02:38 P
[2019-03-25 14:30] VITALS: BP 147/85
[2019-03-25] MEDS: LATANOPROST 0.005% OPHTH SOLN 2.5 ML OU SCH (20:27)
[2019-03-25] MEDS: ATORVASTATIN 20 MG TAB PO SCH (20:27)
[2019-03-25] MEDS: traZODone 50 MG TAB PO PRN (20:27)
[2019-03-25] MEDS: DIVALPROEX 500 MG TAB PO SCH (20:27)
[2019-03-25] MEDS: TIMOLOL MALEATE 0.5% OPHTH SOLN 5 ML OU SCH (20:28)
[2019-03-25 22:00] VITALS: BP 148/87
[2019-03-25] MEDS: IBUPROFEN 400 MG TAB PO SCH (22:00)
[2019-03-25] MEDS ORDERED: ANALGESIC BALM CRM 120 GM TOP PRN (23:00)
[2019-03-26] MEDS: IBUPROFEN 400 MG TAB PO SCH ×5 (05:52→21:09)
[2019-03-26 06:02] VITALS: BP 123/69
[2019-03-26 06:02] LABS: BASO % 0.3 % (0.0-1.0); EOS # 0.2 10^3/uL (0.0-0.5); EOS % 2.2 % (0.0-3.0); HEMATOCRIT 34.6 % (36.0-47.0); HEMOGLOBIN 11.6 g/dl (12.0-15.5); LYMPH # 3.9 10^3/uL (1.5-5.0); LYMPH % 40.3 % (24.0-44.0); MEAN CORPUSCULAR HEMOGLOBIN 34.6 pg (27.0-33.0); MEAN CORPUSCULAR HGB CONC 33.5 g/dl (32.0-36.5); MEAN CORPUSCULAR VOLUME 103.3 fl (80.0-96.0); MONO # 0.9 10^3/uL (0.0-0.8); MONO % 9.2 % (0.0-5.0); NEUTROPHILS # 4.7 10^3/uL (1.5-8.5); NEUTROPHILS % 47.8 % (36.0-66.0); PLATELET COUNT, AUTOMATED 215 10^3/uL (150-450); RED BLOOD COUNT 3.35 10^6/uL (4.00-5.40); WHITE BLOOD COUNT 9.7 10^3/uL (4.0-10.0)
[2019-03-26 06:43] LABS: ALBUMIN 2.3 GM/DL (3.2-5.2); ALT/SGPT 28 U/L (12-78); BILIRUBIN,TOTAL 0.5 MG/DL (0.2-1.0); BLOOD UREA NITROGEN 15 MG/DL (7-18); CALCIUM LEVEL 8.6 MG/DL (8.8-10.2); CARBON DIOXIDE LEVEL 26 MEQ/L (21-32); CHLORIDE LEVEL 107 MEQ/L (98-107); CREATININE FOR GFR 0.74 MG/DL (0.55-1.30); GLOMERULAR FILTRATION RATE > 60.0 (>39); GLUCOSE, FASTING 111 MG/DL (70-100); POTASSIUM SERUM 3.1 MEQ/L (3.5-5.1); SODIUM LEVEL 140 MEQ/L (136-145); TOTAL PROTEIN 6.7 GM/DL (6.4-8.2)
[2019-03-26] MEDS ORDERED: POTASSIUM CHLORIDE 10 MEQ SR TABLET PO ONE (08:00)
[2019-03-26] MEDS: TIOTROPIUM INHALER/CAPSULE (SPIRIVA) INH SCH (08:24)
[2019-03-26 08:58] LABS: FOLATE 18.1 NG/ML (>5.4)
[2019-03-26] MEDS: ENOXAPARIN 30 MG/0.3 ML SYR (J1650) SC SCH (09:32)
[2019-03-26] MEDS: QUEtiapine FUMARATE 12.5 MG HALF-TAB PO SCH ×2 (09:32→21:03)
[2019-03-26] MEDS: DULoxetine 30 MG CAP (CYMBALTA) PO SCH (09:35)
[2019-03-26] MEDS: MIRALAX *UNIT DOSE* 17GM PACKET PO SCH (09:35)
[2019-03-26] MEDS: amLODIPine 5 MG TAB PO SCH (09:35)
[2019-03-26] MEDS: MAGNESIUM OXIDE 400 MG TAB (MAG-OX) PO SCH (09:35)
[2019-03-26] MEDS: ASPIRIN 81 MG ENTERIC TAB PO SCH (09:35)
[2019-03-26] MEDS: AMITRIPTYLINE 25 MG TAB PO SCH ×2 (09:35→21:03)
[2019-03-26] MEDS: OMEPRAZOLE 20 MG CAP PO SCH (09:36)
[2019-03-26] MEDS: NICOTINE 7 MG/24 HR TRANSDERMAL TD SCH (09:36)
[2019-03-26] MEDS: TOBRAMYCIN 0.3% OPHTH SOLN 5 ML OD SCH (09:37)
[2019-03-26] MEDS: prednisoLONE ACET 1% OPHTH SUSP 5ML OD SCH ×4 (09:38→21:05)
[2019-03-26] MEDS: CAPSAICIN 0.025% CR 60 GM TOP SCH ×5 (09:38→21:05)
[2019-03-26] MEDS: KETOROLAC 0.5% OPHTH SOLN OD SCH ×4 (09:38→21:05)
--- NOTE | 2019-03-26 11:01 | IPNPDOC ---
Subjective Date Seen The patient was seen on 03/26/19. Subjective Chief Complaint/HPI Patient is sleeping comfortably in no apparent distress at the present time General: Reports: ROS Unobtainable Objective Physical Examination Neck Exam: Positive: Supple Chest Exam: Positive: Clear to auscultation, Normal air movement Heart Exam: Positive: Rate Normal, Normal S1, Normal S2 Abdomen Exam: Positive: Normal bowel sounds, Soft Assessment /Plan Problems (1) Delirium Status: Acute Problem Text: Patient most likely has a delirium Etiology is still unknown at this point Has been started on Seroquel, which will continue the meantime Haldol when necessary as needed for agitation Continue home meds Discharge planning in progress (2) Dehydration Status: Resolved Problem Text: Dehydration is resolved with IV fluids Encourage oral intake of liquids Urine creatinine essentially within normal limits Continue home meds (3) Elevated MCV Status: Acute Problem Text: Vitamin B12 and folic acid levels have been ordered Further, as per pending lab work Plan/VTE VTE Prophylaxis Ordered?: Yes VS, I&O, 24H, Replaced By [facility] Vital Signs/I&O Vital Signs Date Time Temp Pulse Resp B/P (MAP) Pulse Ox O2 Delivery O2 Flow Rate FiO2 03/26/19 09:35 81 129/71 03/26/19 06:02 98.6 16 95 03/22/19 18:48 Room Air I&O- Last 24 Hours up to 6 AM 03/26/19 06:00 Intake Total 160 ml Balance 160 ml Laboratory Data 24H LABS Laboratory Tests 2 03/26/19 05:39: Immature Granulocyte % (Auto) 0.2, White Blood Count 9.7, Red Blood Count 3.35L, Hemoglobin 11.6L, Hematocrit 34.6L, Mean Corpuscular Volume 103.3H, Mean Corpuscular Hemoglobin 34.6H, Mean Corpuscular Hemoglobin Concent 33.5, Red Cell Distribution Width 13.2, Platelet Count 215, Neutrophils (%) (Auto) 47.8, Lymphocytes (%) (Auto) 40.3, Monocytes (%) (Auto) 9.2H, Eosinophils (%) (Auto) 2.2, Basophils (%) (Auto) 0.3, Neutrophils # (Auto) 4.7, Lymphocytes # (Auto) 3.9, Monocytes # (Auto) 0.9H, Eosinophils # (Auto) 0.2, Basophils # (Auto) 0.0, Nucleated Red Blood Cells % (auto) 0.0, Anion Gap 7L, Glomerular Filtration Rate > 60.0, Blood Urea Nitrogen 15, Creatinine 0.74, Sodium Level 140, Potassium Level 3.1L, Chloride Level 107, Carbon Dioxide Level 26, Calcium Level 8.6L, Aspartate Amino Transf (AST/SGOT) 28, Alanine Aminotransferase (ALT/SGPT) 28, Alkaline Phosphatase 201H, Total Bilirubin 0.5, Total Protein 6.7, Albumin 2.3L, Albumin/Globulin Ratio 0.52L 03/26/19 06:57: Vitamin B12 Level 622, Folate 18.1 CBC/BMP Laboratory Tests 03/26/19 05:39 Red Blood Count 3.35 L, Mean Corpuscular Volume 103.3 H, Mean Corpuscular Hemoglobin 34.6 H, Mean Corpuscular Hemoglobin Concent 33.5, Red Cell Distribution Width 13.2, Neutrophils (%) (Auto) 47.8, Lymphocytes (%) (Auto) 40.3, Monocytes (%) (Auto) 9.2 H, Eosinophils (%) (Auto) 2.2, Basophils (%) (Auto) 0.3, Neutrophils # (Auto) 4.7, Lymphocytes # (Auto) 3.9, Monocytes # (Auto) 0.9 H, Eosinophils # (Auto) 0.2, Basophils # (Auto) 0.0, Calcium Level 8.6 L, Aspartate Amino Transf (AST/SGOT) 28, Alanine Aminotransferase (ALT/SGPT) 28, Alkaline Phosphatase 201 H, Total Bilirubin 0.5, Total Protein 6.7, Albumin 2.3 L Microbiology Microbiology 03/22/19 Blood Culture - Preliminary, Resulted No Growth after 72 hours. All specime... KRISTINE ARAGON MD Mar 26, 2019 11:01
[2019-03-26 21:03] VITALS: BP 130/70
[2019-03-26] MEDS: ATORVASTATIN 20 MG TAB PO SCH (21:03)
[2019-03-26] MEDS: traZODone 50 MG TAB PO PRN (21:03)
[2019-03-26] MEDS: DIVALPROEX 500 MG TAB PO SCH (21:03)
[2019-03-26] MEDS: TIMOLOL MALEATE 0.5% OPHTH SOLN 5 ML OU SCH (21:04)
[2019-03-26] MEDS: LATANOPROST 0.005% OPHTH SOLN 2.5 ML OU SCH (21:04)
[2019-03-27 00:09] LABS: 5' NUCLEOTIDASE 10 IU/L (0-10); ALDOLASE 8.1 U/L (3.3-10.3); ANCA-ATYPICAL <1:20 titer (Neg:<1:20); ANTINUCLEAR ANTIBODIES DIRECT Negative (Negative); CYTOPLASMIC NEUTROP AB ANCA-C <1:20 titer (Neg:<1:20); PERINUCLEAR AB ANCA-P <1:20 titer (Neg:<1:20)
[2019-03-27] MEDS: IBUPROFEN 400 MG TAB PO SCH (05:47)
[2019-03-27 06:00] VITALS: BP 136/73
[2019-03-27 06:27] LABS: HEMATOCRIT 33.9 % (36.0-47.0); HEMOGLOBIN 11.4 g/dl (12.0-15.5); MEAN CORPUSCULAR HEMOGLOBIN 35.4 pg (27.0-33.0); MEAN CORPUSCULAR HGB CONC 33.6 g/dl (32.0-36.5); MEAN CORPUSCULAR VOLUME 105.3 fl (80.0-96.0); PLATELET COUNT, AUTOMATED 198 10^3/uL (150-450); RED BLOOD COUNT 3.22 10^6/uL (4.00-5.40); WHITE BLOOD COUNT 8.5 10^3/uL (4.0-10.0)
[2019-03-27 06:47] LABS: BLOOD UREA NITROGEN 16 MG/DL (7-18); CALCIUM LEVEL 8.5 MG/DL (8.8-10.2); CARBON DIOXIDE LEVEL 26 MEQ/L (21-32); CHLORIDE LEVEL 108 MEQ/L (98-107); CREATININE FOR GFR 0.76 MG/DL (0.55-1.30); GLOMERULAR FILTRATION RATE > 60.0 (>39); GLUCOSE, FASTING 105 MG/DL (70-100); POTASSIUM SERUM 3.6 MEQ/L (3.5-5.1); SODIUM LEVEL 140 MEQ/L (136-145)
[2019-03-27] MEDS: TIOTROPIUM INHALER/CAPSULE (SPIRIVA) INH SCH (07:46)
[2019-03-27] MEDS: NICOTINE 7 MG/24 HR TRANSDERMAL TD SCH (08:51)
[2019-03-27] MEDS: MIRALAX *UNIT DOSE* 17GM PACKET PO SCH ×2 (08:51→09:00)
[2019-03-27] MEDS: ENOXAPARIN 30 MG/0.3 ML SYR (J1650) SC SCH (08:51)
[2019-03-27] MEDS: QUEtiapine FUMARATE 12.5 MG HALF-TAB PO SCH (08:52)
[2019-03-27] MEDS: ASPIRIN 81 MG ENTERIC TAB PO SCH (08:52)
[2019-03-27] MEDS: DULoxetine 30 MG CAP (CYMBALTA) PO SCH (08:52)
[2019-03-27] MEDS: MAGNESIUM OXIDE 400 MG TAB (MAG-OX) PO SCH (08:52)
[2019-03-27 08:53] VITALS: BP 134/73
[2019-03-27] MEDS: amLODIPine 5 MG TAB PO SCH (08:53)
[2019-03-27] MEDS: OMEPRAZOLE 20 MG CAP PO SCH (08:54)
[2019-03-27] MEDS: AMITRIPTYLINE 25 MG TAB PO SCH (08:54)
[2019-03-27] MEDS: CAPSAICIN 0.025% CR 60 GM TOP SCH (08:55)
[2019-03-27] MEDS: prednisoLONE ACET 1% OPHTH SUSP 5ML OD SCH (08:55)
[2019-03-27] MEDS: KETOROLAC 0.5% OPHTH SOLN OD SCH (08:55)
[2019-03-27] MEDS ORDERED: MYRBETRIQ 50 MG PO SCH (09:00)
[2019-03-27] MEDS ORDERED: QUET1TAB7 PO (10:34)
--- NOTE | 2019-03-27 12:01 | DS.PDOC ---
Discharge Summary General Date of Admission Mar 23, 2019 at 03:01 Date of Discharge 03/27/19 Attending Physician: KRISTINE ARAGON MD Discharge Summary PROCEDURES PERFORMED DURING STAY: None. ADMITTING DIAGNOSES: 1. Delirium. Dehydration, falls. DISCHARGE DIAGNOSES: 1. Delirium. Dehydration, falls. COMPLICATIONS/CHIEF COMPLAINT: Elevated Ck, Falls. HISTORY OF PRESENT ILLNESS: This is a 74 old female who was sent from her halfway for evaluation of falls and weakness. The patient reports "feeling like I'm going to topple". Associated symptoms include muscle aches, and backaches. She has fallen several times but has not hit her head. Prior to the falls she denies feeling dizzy, denies having fevers and denies having chest pain; she does reports having dyspnea and intermittent palpitations. She has lost weight and reports feeling cold all the time. Per discussion with the ED staff she was complaining of shoulder pain after recent fall. X-ray of the shoulder was unremarkable. CPK was elevated and she started on IV fluids.. HOSPITAL COURSE: Patient was admitted with possible delirium, was seen by psychiatry and started on Seroquel Patient slowly responded to the medication. Today she is alert, oriented 3, in no apparent distress As per patient, she gets episodes like this secondary to depression Patient will be discharged to acute rehabilitation unit for gait training and rehabilitation before discharge home Dehydration also was diagnosed on admission which was treated with IV fluids. Patient's creatinine is essentially within normal limits Patient does have a elevated MCV for whic the etiology is unknown at this level and B12 are essentially within normal limits. DISCHARGE MEDICATIONS: Please see below. ALLERGIES: Please see below. PHYSICAL EXAMINATION ON DISCHARGE: VITAL SIGNS: Please see below. GENERAL: Awake, alert, oriented 3 HEENT: PERRLA. Extraocular muscles intact NECK: Supple CARDIOVASCULAR EXAMINATION: S1, S2, regular RESPIRATORY EXAMINATION: Clear to A&P ABDOMINAL EXAMINATION: , Soft, nontender. Pulses present EXTREMITIES: no clubbing, cyanosis, edema SKIN: Normal NEUROLOGICAL EXAMINATION: . No focal motor sensory deficit PSYCHIATRIC EXAMINATION: Normal LABORATORY DATA: Please see below. IMAGING: Shoulder x-ray and hip x-ray no fracture PROGNOSIS: Good ACTIVITY: As tolerated. DIET: As tolerated DISCHARGE PLAN: Discharged to ARU DISPOSITION: .ARU DISCHARGE INSTRUCTIONS: 1. As per discharge instructions. ITEMS TO FOLLOWUP ON ON OUTPATIENT: 1. Follow with PCP once discharged from rehabilitation. DISCHARGE CONDITION: Stable. TIME SPENT ON DISCHARGE: 38 minutes. Vital Signs/I&Os Vital Signs Date Time Temp Pulse Resp B/P (MAP) Pulse Ox O2 Delivery O2 Flow Rate FiO2 03/27/19 08:53 92 134/73 03/27/19 06:00 97.8 18 98 03/22/19 18:48 Room Air I&O- Last 24 Hours up to 6 AM 03/27/19 06:00 Intake Total 80 ml Output Total 0 ml Balance 80 ml Laboratory Data Labs 24H Laboratory Tests 2 03/27/19 06:02: Nucleated Red Blood Cells % (auto) 0.0, Anion Gap 6L, Glomerular Filtration Rate > 60.0, Blood Urea Nitrogen 16, Creatinine 0.76, Sodium Level 140, Potassium Level 3.6, Chloride Level 108H, Carbon Dioxide Level 26, Calcium Level 8.5L CBC/BMP Laboratory Tests 03/27/19 06:02 Red Blood Count 3.22 L, Mean Corpuscular Volume 105.3 H, Mean Corpuscular Hemoglobin 35.4 H, Mean Corpuscular Hemoglobin Concent 33.6, Red Cell Distribution Width 13.2, Calcium Level 8.5 L Microbiology Microbiology 03/22/19 Blood Culture - Preliminary, Resulted No Growth after 72 hours. All specime... Discharge Medications Scheduled Amitriptyline HCl (Amitriptyline HCl) 25 Mg Tablet, 25 MG PO BID, (Reported) Amlodipine Besylate (Amlodipine Besylate) 5 Mg Tablet, 7.5 MG PO DAILY, (Reported) Aspirin (Aspir 81) 81 Mg Tablet.dr, 81 MG PO DAILY, (Reported) Atorvastatin Calcium (Atorvastatin Calcium) 20 Mg Tablet, 20 MG PO QHS, (Reported) Divalproex Sodium (Depakote) 500 Mg Tablet.dr, 1,000 MG PO QHS, (Reported) Duloxetine HCl (Duloxetine HCl) 30 Mg Capsule.dr, 30 MG PO DAILY, (Reported) TAKES WITH 60MG CAP FOR TOTAL OF 90MG Duloxetine Hcl (Duloxetine HCl) 60 Mg Capsule.dr, 60 MG PO DAILY, (Reported) TAKES WITH 30MG CAP FOR TOTAL OF 90MG Lactase (Lactaid) 3,000 Unit Tablet, 3,000 UNIT PO TID, (Reported) Latanoprost (Xalatan) 0.005 % Kourtney, 1 DROP OU QHS, (Reported) Magnesium Oxide (Magnesium Oxide) 400 Mg Tab, 400 MG PO DAILY, (Reported) Mirabegron (Myrbetriq) 50 Mg Tab.er.24h, 50 MG PO DAILY, (Reported) Multivitamin (Tab-A-Ari) 1 Tab Tab, 1 TAB PO DAILY, (Reported) Omeprazole (Omeprazole) 20 Mg Cap, 20 MG PO DAILY, (Reported) Ospemifene (Osphena) 60 Mg Tablet, 60 MG PO DAILY, (Reported) Quetiapine Fumarate (Quetiapine Fumarate) 25 Mg Tablet, 12.5 MG PO BID Timolol Maleate (Timolol Maleate) 0.5 % Kourtney, 1 DROP OU QHS, (Reported) Tiotropium [place] (Spiriva) 18 Mcg Cap.w.dev, 1 INH INH DAILY, (Reported) Scheduled PRN Albuterol Sulfate (Ventolin Hfa) 108 Mcg/Act Aer, 2 PUFFS INH Q4H PRN for SHORTNESS OF BREATH, (Reported) Albuterol Sulfate (Ventolin Hfa) 18 Gm Hfa.aer.ad, 2 PUFF INH QHS PRN for whee zing, (Reported) Diclofenac Sodium (Diclofenac Sodium) 1% 100GM Gel..gram., 2 GM TOP QID PRN for LEFT SHOULDER, (Reported) APPLY TO LEFT SHOULDER Ibuprofen (Ibuprofen) 600 Mg Tablet, 600 MG PO TID PRN for PAIN, (Reported) Trazodone HCl (Trazodone HCl) 50 Mg Tab, 150 MG PO QHS PRN for SLEEP, (Reported) Allergies Coded Allergies: morphine (Verified Allergy, Severe, 'I almost ', 12/19/18) acetaminophen (Verified Allergy, Unknown, unknown, 12/19/18) naproxen (Verified Allergy, Unknown, unknown, 12/19/18) TAKES IBUPROFEN AND ASPIRIN AT HOME oxycodone (Unverified Allergy, Unknown, unknown, 12/19/18) propoxyphene (Verified Allergy, Unknown, unknown, 12/19/18) tetanus toxoid, adsorbed (Verified Allergy, Unknown, unknown, 12/19/18) thiothixene (Verified Adverse Reaction, Intermediate, EPS, 12/19/18) hydrocodone (Verified Adverse Reaction, Mild, 'I fall', 12/19/18) hydroxyzine (Verified Adverse Reaction, Mild, vomits, 12/19/18) KRISTINE ARAGON MD Mar 27, 2019 12:01
[2019-03-27] MEDS ORDERED: OSPEMIFENE 60 MG PO SCH (13:00)
== END 2019-03-27 12:01 | disposition home or self-care (01) | DRG 641 ==
LOC: EDBD 18:32 → M ED 18:32 → M ED INP 18:33 → M MS5PR 03-23 00:02 → OBSVTOIN 03-23 03:01 → M MS5PR 03-23 03:01
PROVIDERS: ADMIT Internal Medicine; ATTEND Internal Medicine
DX: E86.0 Dehydration (principal); M62.82 Rhabdomyolysis; R29.6 Repeated falls; Z79.82 Long term (current) use of aspirin; Z79.899 Other long term (current) drug therapy; Z88.5 Allergy status to narcotic agent; Z88.8 Allergy status to other drugs, medicaments and biological substances; Z88.7 Allergy status to serum and vaccine; J44.9 Chronic obstructive pulmonary disease, unspecified; M54.5 Low back pain; I10 Essential (primary) hypertension; K21.9 Gastro-esophageal reflux disease without esophagitis; F32.9 Major depressive disorder, single episode, unspecified; Z85.3 Personal history of malignant neoplasm of breast; F25.9 Schizoaffective disorder, unspecified; F17.200 Nicotine dependence, unspecified, uncomplicated; R73.03 Prediabetes; R41.0 Disorientation, unspecified; E87.6 Hypokalemia

== ENCOUNTER 2019-03-27 12:10 | Inpatient (IN) | payer MEDICARE, MEDICAID ==
[~2019-03-27] VITALS: Ht 144.8 cm; Wt 63.2 kg
[2019-03-27 12:10] VITALS: BP 140/78
[~2019-03-27 12:10] MED LIST changes: +DICL1GEL3 TOP; +DULO30CA47 PO; +HYDR1CRE30 TOP; +MECL12.575 PO; +QUET1TAB7 PO
[2019-03-27] MEDS ORDERED: BISACODYL 10 MG SUPP PR PRN (12:45)
[2019-03-27 14:00] VITALS: BP 142/80
[2019-03-27] MEDS ORDERED: IPRATROPIUM 0.5MG/ALBUTEROL 2.5MG INH SOL UD 3ML (DUONEB)(J7620) NEB PRN (14:00)
[2019-03-27] MEDS: DOCUSATE SODIUM 100 MG CAP PO SCH ×2 (14:30→22:48)
--- NOTE | 2019-03-27 14:43 | HPEPDOC ---
Rubber Down Note DATE OF ADMISSION: 03-27-19 SOURCE OF ADMISSION INFORMATION: [facility] records and CHIEF COMPLAINT: weakness HISTORY OF PRESENT ILLNESS: 74 F pmh depression, schizoaffective disorder, GERD, HTN, hx of pancreatitis, ch ronic low back pain who presented to [facility] ED on 03/22/19 complaining of falls with increased weakness, recent weight loss in addition to muscle pains was admitted for an elevated CK level of 1314 and diagnoses with myositis. She complained of left shoulder pain for which X-ray showed, Degenerative changes of the glenohumeral joint without definite acute fracture or subluxationslight elevation of the clavicle at the AC joint. Her hospital course was complicated by hypokalemia and episodes of delirium for which Seroquel was initiated. The etiology of her myositis was not determined, but she was found to have considerable weakness in therapy with impairments in mobility and ADL management well below her prior level of function and deemed appropriate for discharge to ARU on 03-27-19. REVIEW OF SYSTEMS: The following is a completed review of systems and has been reviewed. Review of systems otherwise unremarkable. PAIN: Patient self reports burning arm and leg pain EYES: No recent vision changes EARS, NOSE, & THROAT: No throat pain, or dysphagia, or rhinorrhea CARDIOVASCULAR: Denies chest pain or palpitations PULMONARY: Denies shortness of breath, + cough GASTROINTESTINAL: +constipation GENITOURINARY: +dysuria MUSCULOSKELETAL:weakness NEUROLOGICAL:myositis HEMATOLOGICAL: no easy bruising SKIN: left hip ecchymosis PSYCHIATRIC: +schizoaffective disorder All other review of systems found to be negative. PAST MEDICAL HISTORY: as per HPI PAST SURGICAL HISTORY: lumpectomy ALLERGIES: Please see below. MEDICATIONS: Please see below. FAMILY HISTORY: DM, anxiety SOCIAL HISTORY: +smoker DIET: low sodium PHYSICAL EXAMINATION: VITAL SIGNS: Please see below. GENERAL: Pleasant and cooperative. No acute distress. HEENT: PERRL. Extraocular movements intact. Clear conjunctiva CARDIOVASCULAR: Regular rate and rhythm. No murmurs, rubs, or gallops. LUNGS: Clear to auscultation bilaterally. No wheezes. No rhonchi ABDOMEN: Soft, nontender, nondistended. Positive bowel sounds. Normal active bowel sounds NEUROLOGICAL: Alert and oriented times three. Cranial nerves II through XII grossly intact. Sensation grossly intact +akathisias EXTREMITIES: 4\5 strength bilateral upper extremities. 4\5 strength right lower extremity.4/5 strength in left lower extremity. (+) restricted left shoulder on internal and external rotation SKIN: left hip bruise LABORATORY DATA: Please see below. IMAGING:Imaging documentation personally reviewed by record FUNCTIONAL STATUS: Premorbid: Modified Independent with all activities of daily life as well as mobility with RW On Admission: Minimum assistance for bathing, upper body dressing, bed chair and wheelchair transfers, toilet transfers, ambulation. GOALS: Mod-I community distances with RW, functional transfers, bathing, dressing, toileting, fall recovery, medical optimization, assess for DME needs ASSESSMENT:74 year-old F with past medical history of Hypothyroidism, HTN, schizoaffective disorder who presents status post falls in setting of myositis. PLAN: 1. Rehab: PT- improve gait, endurance, maintain ROM/strength/stretch bilat LE OT advance ADL management 2. neuro: patient with new diagnosis of myositis, etiology unknown resulting in diffuse weakness and difficulty with mobility 3. CArdiac: HTN c/u home meds medicine consulted to assist in management 4. Resp: hx smoker, with productive cough will start guaifenesin, c/u breathing treatments 5. Psych: hx of schizoaffective disorder with new episodes of delirium c/u home meds, Seroquel added 6. GI ppx: protonix 7. DVT ppx: lovenox 8. : reporting dysuria, UA/Ucx ordered 9. Pain: left shoulder OA, maintain ROM, c/u Capsacisn cream and menthol salicylate 9. Dispo: tbd POST ADMISSION PHYSICIAN EVALUATION: Medical and functional status: Description of medical status, medical assessment: As above. Rehabilitation diagnosis and current and prior cold morbid medical conditions as above. Risk of complications and plans to mitigate them as above. Description of functional status current status is as above. Prior status as above. Status compared to preadmission: There are no clinically significant differences between the patient's current status and the information described on the preadmission screening document. Treatment plan anticipated: Treatment plan is as described above. Required disciplines including physical therapy, occupational therapy, others as noted above. Intensity of services: 3 hours a day, 6 days a week. Special considerations: There are no specific special or safety considerations that would likely preclude immediate implementation of an intensive rehabilitation program or subsequently influence the plan of care. ATTESTATION: Considering all the information above, it is my best judgment that this patient requires intensive rehabilitation therapy as described above and an inpatient hospital environment due to the complexity of nursing, medical, and rehabilitation needs required by the patient. Furthermore, this patient can reasonably be expected to participate in an benefit from an inpatient re habilitation stay with an interdisciplinary team approach to the delivery of rehabilitation care under the direction and supervision of rehabilitation physician. PROGNOSIS: Excellent ESTIMATED LENGTH OF STAY:18-21 days. PROJECTED DISCHARGE DESTINATION: Home with family support and any durable medical equipment required to increase functional safety and mobility. TIME SPENT COUNSELING AND COORDINATING INITIAL CARE: Greater than 70 minutes. Vital Signs Vital Sign - Last 24 Hours 03/27/19 12:10 Temp 97.1 Pulse 97 Resp 17 B/P (MAP) 140/78 (98) Pulse Ox 98 Home Medications Scheduled Amitriptyline HCl (Amitriptyline HCl) 25 Mg Tablet, 25 MG PO BID, (Reported) Amlodipine Besylate (Amlodipine Besylate) 5 Mg Tablet, 7.5 MG PO DAILY, (Reported) Aspirin (Aspir 81) 81 Mg Tablet.dr, 81 MG PO DAILY, (Reported) Atorvastatin Calcium (Atorvastatin Calcium) 20 Mg Tablet, 20 MG PO QHS, (Reported) Divalproex Sodium (Depakote) 500 Mg Tablet.dr, 1,000 MG PO QHS, (Reported) Duloxetine HCl (Duloxetine HCl) 30 Mg Capsule.dr, 30 MG PO DAILY, (Reported) TAKES WITH 60MG CAP FOR TOTAL OF 90MG Duloxetine Hcl (Duloxetine HCl) 60 Mg Capsule.dr, 60 MG PO DAILY, (Reported) TAKES WITH 30MG CAP FOR TOTAL OF 90MG Lactase (Lactaid) 3,000 Unit Tablet, 3,000 UNIT PO TID, (Reported) Latanoprost (Xalatan) 0.005 % Kourtney, 1 DROP OU QHS, (Reported) Magnesium Oxide (Magnesium Oxide) 400 Mg Tab, 400 MG PO DAILY, (Reported) Mirabegron (Myrbetriq) 50 Mg Tab.er.24h, 50 MG PO DAILY, (Reported) Multivitamin (Tab-A-Ari) 1 Tab Tab, 1 TAB PO DAILY, (Reported) Omeprazole (Omeprazole) 20 Mg Cap, 20 MG PO DAILY, (Reported) Ospemifene (Osphena) 60 Mg Tablet, 60 MG PO DAILY, (Reported) Quetiapine Fumarate (Quetiapine Fumarate) 25 Mg Tablet, 12.5 MG PO BID Timolol Maleate (Timolol Maleate) 0.5 % Kourtney, 1 DROP OU QHS, (Reported) Tiotropium [place] (Spiriva) 18 Mcg Cap.w.dev, 1 INH INH DAILY, (Reported) Scheduled PRN Albuterol Sulfate (Ventolin Hfa) 108 Mcg/Act Aer, 2 PUFFS INH Q4H PRN for SHORTNESS OF BREATH, (Reported) Albuterol Sulfate (Ventolin Hfa) 18 Gm Hfa.aer.ad, 2 PUFF INH QHS PRN for wheezing, (Reported) Diclofenac Sodium (Diclofenac Sodium) 1% 100GM Gel..gram., 2 GM TOP QID PRN for LEFT SHOULDER, (Reported) APPLY TO LEFT SHOULDER Ibuprofen (Ibuprofen) 600 Mg Tablet, 600 MG PO TID PRN for PAIN, (Reported) Trazodone HCl (Trazodone HCl) 50 Mg Tab, 150 MG PO QHS PRN for SLEEP, (Reported) Allergies Coded Allergies: morphine (Verified Allergy, Severe, 'I almost ', 12/19/18) acetaminophen (Verified Allergy, Unknown, unknown, 12/19/18) naproxen (Verified Allergy, Unknown, unknown, 12/19/18) TAKES IBUPROFEN AND ASPIRIN AT HOME oxycodone (Unverified Allergy, Unknown, unknown, 12/19/18) propoxyphene (Verified Allergy, Unknown, unknown, 12/19/18) tetanus toxoid, adsorbed (Verified Allergy, Unknown, unknown, 12/19/18) thiothixene (Verified Adverse Reaction, Intermediate, EPS, 12/19/18) hydrocodone (Verified Adverse Reaction, Mild, 'I fall', 12/19/18) hydroxyzine (Verified Adverse Reaction, Mild, vomits, 12/19/18) A-FIB/CHADSVASC A-FIB History Current/History of A-Fib/PAF?: No AZRA SOUTH MD Mar 27, 2019 14:43
[2019-03-27] MEDS: IPRATROPIUM 0.5MG/ALBUTEROL 2.5MG INH SOL UD 3ML (DUONEB)(J7620) NEB SCH ×2 (16:00→20:39)
[2019-03-27] MEDS: guaiFENesin 200 MG TAB PO SCH ×2 (16:26→22:47)
[2019-03-27] MEDS: KETOROLAC 0.5% OPHTH SOLN OD SCH ×2 (16:27→22:59)
[2019-03-27] MEDS: prednisoLONE ACET 1% OPHTH SUSP 5ML OD SCH ×2 (16:27→22:59)
[2019-03-27] MEDS: TOBRAMYCIN 0.3% OPHTH SOLN 5 ML OD SCH ×2 (16:27→23:00)
[2019-03-27] MEDS: CAPSAICIN 0.025% CR 60 GM TOP SCH (21:00)
[2019-03-27 22:44] VITALS: BP 136/79
[2019-03-27] MEDS: QUEtiapine FUMARATE 12.5 MG HALF-TAB PO SCH (22:47)
[2019-03-27] MEDS: DIVALPROEX 500 MG TAB PO SCH (22:48)
[2019-03-27] MEDS: TIMOLOL MALEATE 0.5% OPHTH SOLN 5 ML OU SCH (22:48)
[2019-03-27] MEDS: SENNA 8.6 MG TAB (SENOKOT) PO SCH (22:48)
[2019-03-27] MEDS: ATORVASTATIN 20 MG TAB PO SCH (22:48)
[2019-03-27] MEDS: AMITRIPTYLINE 25 MG TAB PO SCH (22:48)
[2019-03-27] MEDS: traZODone 50 MG TAB PO PRN (22:48)
[2019-03-27] MEDS: LATANOPROST 0.005% OPHTH SOLN 2.5 ML OU SCH (22:49)
[2019-03-27] MEDS: ANALGESIC BALM CRM 120 GM TOP SCH (22:49)
[2019-03-28 06:59] VITALS: BP 152/71
[2019-03-28 07:22] LABS: BASO % 0.4 % (0.0-1.0); EOS # 0.2 10^3/uL (0.0-0.5); EOS % 2.7 % (0.0-3.0); HEMOGLOBIN 11.2 g/dl (12.0-15.5); LYMPH # 3.1 10^3/uL (1.5-5.0); LYMPH % 36.1 % (24.0-44.0); MEAN CORPUSCULAR HEMOGLOBIN 35.4 pg (27.0-33.0); MEAN CORPUSCULAR HGB CONC 33.9 g/dl (32.0-36.5); MEAN CORPUSCULAR VOLUME 104.4 fl (80.0-96.0); MONO # 0.7 10^3/uL (0.0-0.8); MONO % 8.1 % (0.0-5.0); NEUTROPHILS # 4.5 10^3/uL (1.5-8.5); NEUTROPHILS % 52.5 % (36.0-66.0); PLATELET COUNT, AUTOMATED 205 10^3/uL (150-450); RED BLOOD COUNT 3.16 10^6/uL (4.00-5.40); WHITE BLOOD COUNT 8.5 10^3/uL (4.0-10.0)
[2019-03-28] MEDS: TIOTROPIUM INHALER/CAPSULE (SPIRIVA) INH SCH (07:48)
[2019-03-28] MEDS: IPRATROPIUM 0.5MG/ALBUTEROL 2.5MG INH SOL UD 3ML (DUONEB)(J7620) NEB SCH ×3 (07:49→20:19)
[2019-03-28] MEDS: NICOTINE 7 MG/24 HR TRANSDERMAL TD SCH (08:30)
[2019-03-28] MEDS: DULoxetine 30 MG CAP (CYMBALTA) PO SCH (08:31)
[2019-03-28] MEDS: AMITRIPTYLINE 25 MG TAB PO SCH ×2 (08:31→21:09)
[2019-03-28] MEDS: MAGNESIUM OXIDE 400 MG TAB (MAG-OX) PO SCH (08:31)
[2019-03-28] MEDS: DOCUSATE SODIUM 100 MG CAP PO SCH ×2 (08:31→21:08)
[2019-03-28] MEDS: ENOXAPARIN 30 MG/0.3 ML SYR (J1650) SC SCH (08:31)
[2019-03-28] MEDS: OMEPRAZOLE 20 MG CAP PO SCH (08:31)
[2019-03-28] MEDS: TOBRAMYCIN 0.3% OPHTH SOLN 5 ML OD SCH ×4 (08:31→21:06)
[2019-03-28] MEDS: guaiFENesin 200 MG TAB PO SCH ×3 (08:31→21:08)
[2019-03-28] MEDS: ASPIRIN 81 MG CHEW TABLET PO SCH (08:31)
[2019-03-28] MEDS: prednisoLONE ACET 1% OPHTH SUSP 5ML OD SCH ×4 (08:32→21:04)
[2019-03-28] MEDS: CAPSAICIN 0.025% CR 60 GM TOP SCH ×2 (08:32→21:11)
[2019-03-28] MEDS: ANALGESIC BALM CRM 120 GM TOP SCH ×2 (08:32→21:10)
[2019-03-28] MEDS: KETOROLAC 0.5% OPHTH SOLN OD SCH ×4 (08:32→21:07)
[2019-03-28 08:34] LABS: ALBUMIN 2.2 GM/DL (3.2-5.2); ALT/SGPT 37 U/L (12-78); BILIRUBIN,TOTAL 0.8 MG/DL (0.2-1.0); BLOOD UREA NITROGEN 12 MG/DL (7-18); CALCIUM LEVEL 8.3 MG/DL (8.8-10.2); CARBON DIOXIDE LEVEL 31 MEQ/L (21-32); CHLORIDE LEVEL 103 MEQ/L (98-107); GLOMERULAR FILTRATION RATE > 60.0 (>39); GLUCOSE, FASTING 80 MG/DL (70-100); POTASSIUM SERUM 3.9 MEQ/L (3.5-5.1); SODIUM LEVEL 138 MEQ/L (136-145)
[2019-03-28] MEDS: QUEtiapine FUMARATE 12.5 MG HALF-TAB PO SCH ×2 (08:39→21:09)
[2019-03-28 14:00] VITALS: BP 127/85
--- NOTE | 2019-03-28 15:23 | HPEPDOC ---
General Date of Admission Mar 27, 2019 at 12:10 Date of Service: Mar 28, 2019 Attending Physician: SIMONA MACIAS MD Chief Complaint The patient is a 74-year-old female admitted with a reason for visit of Myositis. Source: Patient, EMS notes reviewed Exam Limitations: No limitations Timing/Duration: Other Severity: Moderate, Other Associated Symptoms: Other (none at this time, had been having frequent falls with L>R weakness) History of Present Illness 74 old woman who was sent from her nursing home for evaluation of falls and weakness with muscle aches, and backaches and found to be dehydrated with elevated CK and Cr that improved with hydration. Her hospital course was complicated by episodes of delirium for which psychiatry started her on seroquel with good effect. She was ultimately diagnosed with myositis of unclear etiology. She was found to have considerable weakness in therapy with impairments in mobility and ADL management well below her prior level of function and deemed appropriate for discharge to ARU on 03-27-19. At this time she has been admitted to ARU and has ongoing therapy that she is tolerating well but complains of exhaustion. She is taking good PO with no complaints of chest or abdominal pain, dysuria or profound muscle aches. Home Medications Scheduled Amitriptyline HCl (Amitriptyline HCl) 25 Mg Tablet, 25 MG PO BID, (Reported) Amlodipine Besylate (Amlodipine Besylate) 5 Mg Tablet, 7.5 MG PO DAILY, (Reported) Aspirin (Aspir 81) 81 Mg Tablet.dr, 81 MG PO DAILY, (Reported) Atorvastatin Calcium (Atorvastatin Calcium) 20 Mg Tablet, 20 MG PO QHS, (Reported) Divalproex Sodium (Depakote) 500 Mg Tablet.dr, 1,000 MG PO QHS, (Reported) Duloxetine HCl (Duloxetine HCl) 30 Mg Capsule.dr, 30 MG PO DAILY, (Reported) TAKES WITH 60MG CAP FOR TOTAL OF 90MG Duloxetine Hcl (Duloxetine HCl) 60 Mg Capsule.dr, 60 MG PO DAILY, (Reported) TAKES WITH 30MG CAP FOR TOTAL OF 90MG Lactase (Lactaid) 3,000 Unit Tablet, 3,000 UNIT PO TID, (Reported) Latanoprost (Xalatan) 0.005 % Kourtney, 1 DROP OU QHS, (Reported) Magnesium Oxide (Magnesium Oxide) 400 Mg Tab, 400 MG PO DAILY, (Reported) Mirabegron (Myrbetriq) 50 Mg Tab.er.24h, 50 MG PO DAILY, (Reported) Multivitamin (Tab-A-Ari) 1 Tab Tab, 1 TAB PO DAILY, (Reported) Omeprazole (Omeprazole) 20 Mg Cap, 20 MG PO DAILY, (Reported) Ospemifene (Osphena) 60 Mg Tablet, 60 MG PO DAILY, (Reported) Quetiapine Fumarate (Quetiapine Fumarate) 25 Mg Tablet, 12.5 MG PO BID Timolol Maleate (Timolol Maleate) 0.5 % Kourtney, 1 DROP OU QHS, (Reported) Tiotropium [place] (Spiriva) 18 Mcg Cap.w.dev, 1 INH INH DAILY, (Reported) Scheduled PRN Albuterol Sulfate (Ventolin Hfa) 108 Mcg/Act Aer, 2 PUFFS INH Q4H PRN for SHORTNESS OF BREATH, (Reported) Albuterol Sulfate (Ventolin Hfa) 18 Gm Hfa.aer.ad, 2 PUFF INH QHS PRN for wheezing, (Reported) Diclofenac Sodium (Diclofenac Sodium) 1% 100GM Gel..gram., 2 GM TOP QID PRN for LEFT SHOULDER, (Reported) APPLY TO LEFT SHOULDER Ibuprofen (Ibuprofen) 600 Mg Tablet, 600 MG PO TID PRN for PAIN, (Reported) Trazodone HCl (Trazodone HCl) 50 Mg Tab, 150 MG PO QHS PRN for SLEEP, (Reported) Allergies Coded Allergies: morphine (Verified Allergy, Severe, 'I almost ', 12/19/18) acetaminophen (Verified Allergy, Unknown, unknown, 12/19/18) naproxen (Verified Allergy, Unknown, unknown, 12/19/18) TAKES IBUPROFEN AND ASPIRIN AT HOME oxycodone (Unverified Allergy, Unknown, unknown, 12/19/18) propoxyphene (Verified Allergy, Unknown, unknown, 12/19/18) tetanus toxoid, adsorbed (Verified Allergy, Unknown, unknown, 12/19/18) thiothixene (Verified Adverse Reaction, Intermediate, EPS, 12/19/18) hydrocodone (Verified Adverse Reaction, Mild, 'I fall', 12/19/18) hydroxyzine (Verified Adverse Reaction, Mild, vomits, 12/19/18) Past Medical History Medical History depression, schizoaffective disorder, GERD, HTN, history of pancreatitis, chronic low back pain Surgical History lumpectomy Family History Significant Family History: No pertinent family hx Social History * Smoker: current smoker Alcohol: Denies Drugs: denies Recent Travel/Sick Contacts: Denies: Recent travel, Recent sick contacts Psychosocial History: No pertinent psych hx A-FIB/CHADSVASC A-FIB History Current/History of A-Fib/PAF?: No Current PO Anticoag Therapy: No Age/Risk Factor Scoring CHADSVASC: CHADSVASC Response (Comments) Value Age Risk Factor Age 65-74 years old 1 Gender Risk Factor Female 1 Hx of CHF No 0 Hx of HTN Yes 1 Hx of Stroke/TIA/or VTE No 0 Hx of Diabetes No 0 Hx of Vascular Disease No 0 Total 3 Treatment Treatment ordered: NONE Reason Anticoagulant not given: Not indicated/[id number] Review of Systems Constitutional: Denies: Chills, Fever, Night Sweats Eyes: Denies: Pain, Vision change ENT: Denies: Head Aches, Ear Pain, Dysphagia Skin: Denies: Rash, Lesions, Breakdown Pulmonary: Denies: Dyspnea, Cough Cardiovascular: Denies: Chest Pain, Palpitations, Orthopnea, Paroxysmal Noc. Dyspnea, Lt Headedness Gastrointestinal: Denies: Nausea, Vomiting, Abdominal Pain, Diarrhea Genitourinary: Denies: Dysuria, Frequency, Incontinence, Retention Hematologic: Denies: Bruising, Bleeding Excessively Endocrine: Denies: Polydipsia, Polyphagia, Polyuria, Heat Intolerance, Cold Intolerance, Other Endocrine Sx Musculoskeletal: Reports: Back Pain, Shoulder Pain, Leg Pain, Joint Pain, Muscle Pain Neurological: Reports: Weakness; Denies: Numbness, Incoordination, Change in speech, Confusion, Seizures Psych: Reports: Mood Normal; Denies: Depression, Memory Issues Physical Examination General Exam: Positive: Alert, No Acute Distress Eye Exam: Positive: PERRLA, Conjunctiva & lids normal, EOMI; Negative: Sclera icteric ENT Exam: Positive: Atraumatic, Mucous membr. moist/pink, Pharynx Normal Neck Exam: Positive: Supple; Negative: JVD, thyromegaly Chest Exam: Positive: Clear to auscultation, Normal air movement Heart Exam: Positive: Rate Normal, Regular Rhythm, Normal S1, Normal S2; Negative: Murmurs, Rubs Abdomen Exam: Positive: Normal bowel sounds, Soft; Negative: Tenderness, Hepatospenomegaly Extremity Exam: Positive: Normal pulses; Negative: Clubbing, Cyanosis, Edema, Tenderness, Swelling Skin Exam: Positive: Nl turgor and temperature; Negative: Rash, Breakdown, Lesion Neuro Exam: Positive: Normal Speech, Sensation Intact, Cranial Nerves 3-12 NL, Reflexes 2+, Other (4/5 strength in lower extremities while sitted in chair. L appears slightly weaker than right. slouching but sits up straight on request. Clear speech, soft spoken, ) Psych Exam: Positive: Mental status NL, Mood NL, Oriented x 3 Vital Signs Vital Signs Date Time Temp Pulse Resp B/P (MAP) Pulse Ox O2 Delivery O2 Flow Rate FiO2 03/28/19 08:30 76 152/71 03/28/19 06:59 97.8 18 98 Laboratory Data Labs 24H Laboratory Tests 2 03/28/19 06:36: Immature Granulocyte % (Auto) 0.2, White Blood Count 8.5, Red Blood Count 3.16L, Hemoglobin 11.2L, Hematocrit 33.0L, Mean Corpuscular Volume 104.4H, Mean Corpuscular Hemoglobin 35.4H, Mean Corpuscular Hemoglobin Concent 33.9, Red Cell Distribution Width 13.2, Platelet Count 205, Neutrophils (%) (Auto) 52.5, Lymphocytes (%) (Auto) 36.1, Monocytes (%) (Auto) 8.1H, Eosinophils (%) (Auto) 2.7, Basophils (%) (Auto) 0.4, Neutrophils # (Auto) 4.5, Lymphocytes # (Auto) 3.1, Monocytes # (Auto) 0.7, Eosinophils # (Auto) 0.2, Basophils # (Auto) 0.0, Nucleated Red Blood Cells % (auto) 0.0, Anion Gap 4L, Glomerular Filtration Rate > 60.0, Blood Urea Nitrogen 12, Creatinine 0.70, Sodium Level 138, Potassium Level 3.9, Chloride Level 103, Carbon Dioxide Level 31, Calcium Level 8.3L, Aspartate Amino Transf (AST/SGOT) 36, Alanine Aminotransferase (ALT/SGPT) 37, Alkaline Phosphatase 237H, Total Bilirubin 0.8#, Total Protein 6.0L, Albumin 2.2 L, Albumin/Globulin Ratio 0.58L CBC/BMP Laboratory Tests 03/28/19 06:36 Red Blood Count 3.16 L, Mean Corpuscular Volume 104.4 H, Mean Corpuscular Hemoglobin 35.4 H, Mean Corpuscular Hemoglobin Concent 33.9, Red Cell Distribution Width 13.2, Neutrophils (%) (Auto) 52.5, Lymphocytes (%) (Auto) 36.1, Monocytes (%) (Auto) 8.1 H, Eosinophils (%) (Auto) 2.7, Basophils (%) (Auto) 0.4, Neutrophils # (Auto) 4.5, Lymphocytes # (Auto) 3.1, Monocytes # (Auto) 0.7, Eosinophils # (Auto) 0.2, Basophils # (Auto) 0.0, Calcium Level 8.3 L, Aspartate Amino Transf (AST/SGOT) 36, Alanine Aminotransferase (ALT/SGPT) 37, Alkaline Phosphatase 237 H, Total Bilirubin 0.8 #, Total Protein 6.0 L, Albumin 2.2 L Assessment/Plan 74 year-old woman with a history of HTN, hypothyroidism, schizoaffective disorder who was admitted into the hospital with frequent falls and found to have myositis of unclear etiology at this time, now in ARU for rehabilitation. Frequent falls with associated weakness and muscle aches -in ARU receiving PT to improve gait, endurance, maintain ROM/strength/stretch bilat LE, per ARU physician Myositis: -Elevated CK with diffuse weakness and myalgias, will need outpatient work up for definitive diagnosis HTN: -hypertensive on amlodipine 7.5 --> will increase to 10mg daily Complaints of dysuria: Did not endorse dysuria during my exam, but did to the inhouse ARU physician. -will follow up urine studies Smoking: -On nicotine patch 7mg/24h Schizoaffective disorder: -Depakote 1g QHS -Cymbalta 90 QD -Seroquel 12.5 BID -Elavil 25 BID -Trazodone 150 QHS PRN MSK pain complaints: -Topical capsaicin BID -Bengay for left shoulder BID -Elavil 25 BID COPD -Robitussin for cough -duonebs TID GERD: -Omeprazole 20 Constipation: -dulcolax suppository PRN -colace BID -Mag oxide 400 QD -Senna QHS DVT prophylasix: Lovenox Plan / VTE VTE Prophylaxis Ordered?: Yes SIMONA MACIAS MD Mar 28, 2019 15:23
[2019-03-28 20:00] VITALS: BP 152/80
[2019-03-28] MEDS: TIMOLOL MALEATE 0.5% OPHTH SOLN 5 ML OU SCH (21:05)
[2019-03-28] MEDS: LATANOPROST 0.005% OPHTH SOLN 2.5 ML OU SCH (21:07)
[2019-03-28] MEDS: ATORVASTATIN 20 MG TAB PO SCH (21:09)
[2019-03-28] MEDS: SENNA 8.6 MG TAB (SENOKOT) PO SCH (21:09)
[2019-03-28] MEDS: DIVALPROEX 500 MG TAB PO SCH (21:09)
[2019-03-29 04:00] VITALS: BP 182/80
[2019-03-29 07:27] VITALS: BP 132/82
[2019-03-29] MEDS: TIOTROPIUM INHALER/CAPSULE (SPIRIVA) INH SCH (07:39)
[2019-03-29] MEDS: IPRATROPIUM 0.5MG/ALBUTEROL 2.5MG INH SOL UD 3ML (DUONEB)(J7620) NEB SCH ×3 (07:39→21:00)
--- NOTE | 2019-03-29 08:06 | IPNPDOC ---
Text Note Date of Service The patient was seen on 03/29/19. NOTE Physical Examination General Exam: Alert, No Acute Distress Eye Exam: PERRLA, Conjunctiva & lids normal, EOMI ENT Exam: Atraumatic, Mucous membr. moist/pink, Pharynx Normal Neck Exam: Supple, no JVD or thyromegaly Chest Exam: Clear to auscultation, Normal air movement Heart Exam: Rate Normal, Regular Rhythm, Normal S1, Normal S2, Murmurs, Rubs Abdomen Exam: Normal bowel sounds, soft, nontender and no hepatospenomegaly Extremity Exam: mild chronic edema, no tenderness Skin Exam: Nl turgor and temperature Neuro Exam: Normal Speech, Sensation Intact, Cranial Nerves 3-12 NL, 4/5 strength in lower extremities stable from yesterday with L slightly weaker than right. Psych Exam: Mental status NL, Mood NL, Oriented x 3 Assessment/Plan 74 year-old woman with a history of HTN, hypothyroidism, schizoaffective disorder who was admitted into the hospital with frequent falls and found to have myositis of unclear etiology at this time, now in ARU for rehabilitation. Frequent falls with associated weakness and muscle aches -in ARU receiving PT to improve gait, endurance, maintain ROM/strength/stretch bilat LE, per ARU physician Myositis: -Elevated CK with diffuse weakness and myalgias, will need outpatient work up for definitive diagnosis HTN: -increased amlodipine to 10mg starting this morning Smoking: -On nicotine patch 7mg/24h Schizoaffective disorder: -Depakote 1g QHS -Cymbalta 90 QD -Seroquel 12.5 BID -Elavil 25 BID -Trazodone 150 QHS PRN MSK pain complaints: -Topical capsaicin BID -Bengay for left shoulder BID -Elavil 25 BID COPD -Robitussin for cough -duonebs TID GERD: -Omeprazole 20 Constipation: -dulcolax suppository PRN -colace BID -Mag oxide 400 QD -Senna QHS DVT prophylasix: Lovenox Dispo: per ARU VS,Fishbone, I+O VS, Fishbone, I+O Vital Signs Date Time Temp Pulse Resp B/P (MAP) Pulse Ox O2 Delivery O2 Flow Rate FiO2 03/29/19 07:27 132/82 (99) 03/29/19 04:00 97.3 78 17 97 I&O- Last 24 Hours up to 6 AM 03/29/19 05:59 Intake Total 1320 ml Balance 1320 ml SIMONA MACIAS MD Mar 29, 2019 08:06
[2019-03-29] MEDS: QUEtiapine FUMARATE 12.5 MG HALF-TAB PO SCH ×2 (08:13→20:00)
[2019-03-29] MEDS: guaiFENesin 200 MG TAB PO SCH ×3 (08:15→20:01)
[2019-03-29] MEDS: DULoxetine 30 MG CAP (CYMBALTA) PO SCH (08:15)
[2019-03-29] MEDS: ASPIRIN 81 MG CHEW TABLET PO SCH (08:15)
[2019-03-29] MEDS: OMEPRAZOLE 20 MG CAP PO SCH (08:15)
[2019-03-29] MEDS: AMITRIPTYLINE 25 MG TAB PO SCH ×2 (08:15→20:01)
[2019-03-29] MEDS: MAGNESIUM OXIDE 400 MG TAB (MAG-OX) PO SCH (08:15)
[2019-03-29] MEDS: DOCUSATE SODIUM 100 MG CAP PO SCH ×2 (08:15→20:00)
[2019-03-29] MEDS: amLODIPine 10 MG TAB PO SCH (08:16)
[2019-03-29] MEDS: ENOXAPARIN 30 MG/0.3 ML SYR (J1650) SC SCH (08:16)
[2019-03-29] MEDS: NICOTINE 7 MG/24 HR TRANSDERMAL TD SCH (08:16)
[2019-03-29] MEDS: ANALGESIC BALM CRM 120 GM TOP SCH ×2 (08:17→20:02)
[2019-03-29] MEDS: prednisoLONE ACET 1% OPHTH SUSP 5ML OD SCH ×4 (08:17→20:01)
[2019-03-29] MEDS: CAPSAICIN 0.025% CR 60 GM TOP SCH ×2 (08:17→20:03)
[2019-03-29] MEDS: TOBRAMYCIN 0.3% OPHTH SOLN 5 ML OD SCH ×4 (08:18→20:01)
[2019-03-29] MEDS: KETOROLAC 0.5% OPHTH SOLN OD SCH ×4 (08:18→20:01)
[2019-03-29 14:00] VITALS: BP 115/58
[2019-03-29] MEDS: PHENAZOPYRIDINE 100 MG TAB PO SCH ×2 (15:00→20:00)
[2019-03-29] MEDS: CEPHALEXIN 500 MG CAP PO SCH ×2 (15:43→20:00)
[2019-03-29 19:15] VITALS: BP 122/59
[2019-03-29] MEDS: traZODone 50 MG TAB PO PRN (20:00)
[2019-03-29] MEDS: SENNA 8.6 MG TAB (SENOKOT) PO SCH (20:00)
[2019-03-29] MEDS: DIVALPROEX 500 MG TAB PO SCH (20:00)
[2019-03-29] MEDS: ATORVASTATIN 20 MG TAB PO SCH (20:00)
[2019-03-29] MEDS: IBUPROFEN 400 MG TAB PO PRN (20:00)
[2019-03-29] MEDS: LATANOPROST 0.005% OPHTH SOLN 2.5 ML OU SCH (20:02)
[2019-03-29] MEDS: TIMOLOL MALEATE 0.5% OPHTH SOLN 5 ML OU SCH (20:02)
[2019-03-30 04:20] VITALS: BP 131/68
[2019-03-30] MEDS: TIOTROPIUM INHALER/CAPSULE (SPIRIVA) INH SCH (07:55)
[2019-03-30] MEDS: IPRATROPIUM 0.5MG/ALBUTEROL 2.5MG INH SOL UD 3ML (DUONEB)(J7620) NEB SCH ×3 (07:55→20:37)
[2019-03-30] MEDS: ENOXAPARIN 30 MG/0.3 ML SYR (J1650) SC SCH (09:55)
[2019-03-30] MEDS: ASPIRIN 81 MG CHEW TABLET PO SCH (09:56)
[2019-03-30] MEDS: amLODIPine 10 MG TAB PO SCH (09:56)
[2019-03-30] MEDS: DOCUSATE SODIUM 100 MG CAP PO SCH ×2 (09:56→20:43)
[2019-03-30] MEDS: MAGNESIUM OXIDE 400 MG TAB (MAG-OX) PO SCH (09:56)
[2019-03-30] MEDS: OMEPRAZOLE 20 MG CAP PO SCH (09:56)
[2019-03-30] MEDS: QUEtiapine FUMARATE 25 MG TAB PO SCH ×2 (09:56→20:43)
[2019-03-30] MEDS: CEPHALEXIN 500 MG CAP PO SCH ×2 (09:56→20:43)
[2019-03-30] MEDS: PHENAZOPYRIDINE 100 MG TAB PO SCH ×2 (09:57→20:43)
[2019-03-30] MEDS: guaiFENesin 200 MG TAB PO SCH ×3 (09:57→20:43)
[2019-03-30] MEDS: AMITRIPTYLINE 25 MG TAB PO SCH ×2 (09:57→20:43)
[2019-03-30] MEDS: DULoxetine 30 MG CAP (CYMBALTA) PO SCH (09:57)
[2019-03-30] MEDS: NICOTINE 7 MG/24 HR TRANSDERMAL TD SCH (09:58)
[2019-03-30] MEDS: KETOROLAC 0.5% OPHTH SOLN OD SCH ×4 (09:59→20:41)
[2019-03-30] MEDS: TOBRAMYCIN 0.3% OPHTH SOLN 5 ML OD SCH ×4 (10:00→20:41)
[2019-03-30] MEDS: prednisoLONE ACET 1% OPHTH SUSP 5ML OD SCH ×4 (10:00→20:42)
[2019-03-30] MEDS: ANALGESIC BALM CRM 120 GM TOP SCH ×2 (10:01→20:42)
[2019-03-30 10:25] LABS: HEMATOCRIT 33.8 % (36.0-47.0); HEMOGLOBIN 11.2 g/dl (12.0-15.5); MEAN CORPUSCULAR HEMOGLOBIN 35.4 pg (27.0-33.0); MEAN CORPUSCULAR HGB CONC 33.1 g/dl (32.0-36.5); PLATELET COUNT, AUTOMATED 212 10^3/uL (150-450); RED BLOOD COUNT 3.16 10^6/uL (4.00-5.40); WHITE BLOOD COUNT 7.7 10^3/uL (4.0-10.0)
[2019-03-30 10:52] LABS: BLOOD UREA NITROGEN 19 MG/DL (7-18); CALCIUM LEVEL 8.2 MG/DL (8.8-10.2); CARBON DIOXIDE LEVEL 32 MEQ/L (21-32); CHLORIDE LEVEL 103 MEQ/L (98-107); CREATININE FOR GFR 0.87 MG/DL (0.55-1.30); GLOMERULAR FILTRATION RATE > 60.0 (>39); GLUCOSE, FASTING 119 MG/DL (70-100); POTASSIUM SERUM 4.3 MEQ/L (3.5-5.1); SODIUM LEVEL 139 MEQ/L (136-145)
[2019-03-30 14:00] VITALS: BP 128/60
--- NOTE | 2019-03-30 15:48 | ECGEPIP ---
[facility] Test Date: 2019-03-30 Pat Name: BROOKE CARR Department: Room: [place] [address] Gender: Female Advertiser: CHRISTINE : 1945 Requested By: MARIPOSA SOTO Order Number: [id number] Reading MD: Hu Weston Measurements Intervals [place] Rate: 75 P: 29 WA: 143 QRS: 5 QRSD: 101 T: 51 QT: 384 QTc: 431 Interpretive Statements Normal sinus rhythm. Slow R wave progression with persistent S waves V5 and V6, and miniscule inferior Q waves; body habitus versus pulmonary disease. Could not rule out prior septal injury. Marginal ST/T-wave abnormalities less marked than 03/22/19 Electronically Signed on 03-30-2019 15:47:54 EDT by Hu Weston
[2019-03-30] MEDS: IBUPROFEN 400 MG TAB PO PRN ×2 (17:03→20:44)
--- NOTE | 2019-03-30 18:19 | IPNPDOC ---
Text Note Date of Service The patient was seen on 03/30/19. NOTE Subjective: The morning patient was agitated, stated that all her body meng, yelling on nurses Physical Examination General Exam: In moderate distress Eye Exam: PERRLA, Conjunctiva & lids normal, EOMI ENT Exam: Atraumatic, Mucous membr. moist/pink, Pharynx Normal Neck Exam: Supple, no JVD or thyromegaly Chest Exam: Clear to auscultation, Normal air movement Heart Exam: Rate Normal, Regular Rhythm, Normal S1, Normal S2, Murmurs, Rubs Abdomen Exam: Normal bowel sounds, soft, nontender and no hepatospenomegaly Extremity Exam: mild chronic edema, no tenderness Skin Exam: Nl turgor and temperature Neuro Exam: Nonfocal, cranial nerves from 2-12 intact Assessment/Plan 74 year-old woman with a history of HTN, hypothyroidism, schizoaffective disorder who was admitted into the hospital with frequent falls and found to have myositis of unclear etiology at this time, now in ARU for rehabilitation. Frequent falls with associated weakness and muscle aches -in ARU receiving PT to improve gait, endurance, maintain ROM/strength/stretch bilat LE, per ARU physician Myositis: -Elevated CK with diffuse weakness and myalgias, will need outpatient work up for definitive diagnosis HTN: -increased amlodipine to 10mg starting this morning Smoking: -On nicotine patch 7mg/24h Schizoaffective disorder: -Depakote 1g QHS -Cymbalta 90 QD - Due to agitation today I increased her dose of Seroquel to 25 twice a day . Continue to monitor EKG for QTc prolongation -Elavil 25 BID -Trazodone 150 QHS PRN MSK pain complaints: -Topical capsaicin BID -Bengay for left shoulder BID -Elavil 25 BID COPD -Robitussin for cough -duonebs TID GERD: -Omeprazole 20 Constipation: -dulcolax suppository PRN -colace BID -Mag oxide 400 QD -Senna QHS DVT prophylasix: Lovenox Dispo: per ARU VS,Fishbone, I+O VS, Fishbone, I+O Laboratory Tests 03/30/19 10:13 Red Blood Count 3.16 L, Mean Corpuscular Volume 107.0 H, Mean Corpuscular Hemoglobin 35.4 H, Mean Corpuscular Hemoglobin Concent 33.1, Red Cell Distribution Width 13.3, Calcium Level 8.2 L Vital Signs Date Time Temp Pulse Resp B/P (MAP) Pulse Ox O2 Delivery O2 Flow Rate FiO2 03/30/19 14:00 98.0 84 18 128/60 (82) 98 I&O- Last 24 Hours up to 6 AM 03/30/19 06:00 Intake Total 680 ml Balance 680 ml MARIPOSA SOTO DO Mar 30, 2019 18:19
[2019-03-30 19:52] VITALS: BP 119/57
[2019-03-30] MEDS: TIMOLOL MALEATE 0.5% OPHTH SOLN 5 ML OU SCH (20:41)
[2019-03-30] MEDS: LATANOPROST 0.005% OPHTH SOLN 2.5 ML OU SCH (20:42)
[2019-03-30] MEDS: SENNA 8.6 MG TAB (SENOKOT) PO SCH (20:43)
[2019-03-30] MEDS: ATORVASTATIN 20 MG TAB PO SCH (20:43)
[2019-03-30] MEDS: traZODone 50 MG TAB PO PRN (20:43)
[2019-03-30] MEDS: DIVALPROEX 500 MG TAB PO SCH (20:44)
[2019-03-31] MEDS ORDERED: OLANZapine 5 MG TAB PO ONE (03:00)
[2019-03-31] MEDS ORDERED: HYDROCORTISONE 1% CREAM 30 GM TOP ONE (03:00)
[2019-03-31 03:53] VITALS: BP 138/65
[2019-03-31] MEDS: guaiFENesin 200 MG TAB PO SCH ×3 (07:47→21:31)
[2019-03-31] MEDS: ENOXAPARIN 30 MG/0.3 ML SYR (J1650) SC SCH (07:47)
[2019-03-31] MEDS: MAGNESIUM OXIDE 400 MG TAB (MAG-OX) PO SCH (07:48)
[2019-03-31] MEDS: amLODIPine 10 MG TAB PO SCH (07:48)
[2019-03-31] MEDS: QUEtiapine FUMARATE 25 MG TAB PO SCH ×2 (07:48→21:32)
[2019-03-31] MEDS: CEPHALEXIN 500 MG CAP PO SCH ×2 (07:48→21:31)
[2019-03-31] MEDS: OMEPRAZOLE 20 MG CAP PO SCH (07:48)
[2019-03-31] MEDS: AMITRIPTYLINE 25 MG TAB PO SCH ×2 (07:48→21:32)
[2019-03-31] MEDS: DULoxetine 30 MG CAP (CYMBALTA) PO SCH (07:48)
[2019-03-31] MEDS: DOCUSATE SODIUM 100 MG CAP PO SCH ×2 (07:48→21:32)
[2019-03-31] MEDS: ASPIRIN 81 MG CHEW TABLET PO SCH (07:49)
[2019-03-31] MEDS: prednisoLONE ACET 1% OPHTH SUSP 5ML OD SCH ×4 (07:50→21:33)
[2019-03-31] MEDS: TOBRAMYCIN 0.3% OPHTH SOLN 5 ML OD SCH ×4 (07:50→21:33)
[2019-03-31] MEDS: ANALGESIC BALM CRM 120 GM TOP SCH ×2 (07:50→21:00)
[2019-03-31] MEDS: NICOTINE 7 MG/24 HR TRANSDERMAL TD SCH (07:50)
[2019-03-31] MEDS: KETOROLAC 0.5% OPHTH SOLN OD SCH ×4 (07:50→21:33)
[2019-03-31] MEDS: IPRATROPIUM 0.5MG/ALBUTEROL 2.5MG INH SOL UD 3ML (DUONEB)(J7620) NEB SCH ×2 (08:03→20:55)
[2019-03-31] MEDS: TIOTROPIUM INHALER/CAPSULE (SPIRIVA) INH SCH (08:03)
[2019-03-31 14:00] VITALS: BP 130/72
--- NOTE | 2019-03-31 17:29 | IPNPDOC ---
PM&R Progress Note DATE OF SERVICE: Mar 31, 2019 [employer] Progress Note Subjective: Patient seen today lying in bed, was able to pull herself up to get out of bed and got into chair in preparation for speech therapy. She reports she has left shoulder pain that is worse with any movement. REVIEW OF SYSTEMS: The following is a completed review of systems and has been reviewed. Review of systems otherwise unremarkable. PAIN: Patient self reports burning arm and leg pain EYES: No recent vision changes EARS, NOSE, & THROAT: No throat pain, or dysphagia, or rhinorrhea CARDIOVASCULAR: Denies chest pain or palpitations PULMONARY: Denies shortness of breath, + cough GASTROINTESTINAL: +constipation GENITOURINARY: +dysuria MUSCULOSKELETAL:weakness NEUROLOGICAL:myositis HEMATOLOGICAL: no easy bruising SKIN: left hip ecchymosis PSYCHIATRIC: +schizoaffective disorder All other review of systems found to be negative. PHYSICAL EXAMINATION: VITAL SIGNS: Please see below. GENERAL: Pleasant and cooperative. No acute distress. HEENT: PERRL. Extraocular movements intact. Clear conjunctiva CARDIOVASCULAR: Regular rate and rhythm. No murmurs, rubs, or gallops. LUNGS: Clear to auscultation bilaterally. No wheezes. No rhonchi ABDOMEN: Soft, nontender, nondistended. Positive bowel sounds. Normal active bowel sounds NEUROLOGICAL: Alert and oriented times three. Cranial nerves II through XII grossly intact. Sensation grossly intact +akathisias EXTREMITIES: 4\5 strength bilateral upper extremities. 4\5 strength right lower extremity.4/5 strength in left lower extremity. (+) restricted left shoulder on internal and external rotation SKIN: left hip bruise ASSESSMENT:74 year-old F with past medical history of Hypothyroidism, HTN, schizoaffective disorder who presents status post falls in setting of myositis. PLAN: 1. Rehab: PT- improve gait, endurance, maintain ROM/strength/stretch bilat LE OT advance ADL management [employer]PER for cognition 2. neuro: patient with new diagnosis of myositis, etiology unknown resulting in diffuse weakness and difficulty with mobility- will need outpatient neuro work-up 3. CArdiac: HTN c/u home meds medicine consulted to assist in management, monitoring QTC while on Seroquel 4. Resp: hx smoker, with productive cough will start guaifenesin, c/u breathing treatments 5. Psych: hx of schizoaffective disorder with new episodes of delirium c/u home meds, c/u Seroquel BID, will add prn dosing 6. GI ppx: protonix 7. DVT ppx: lovenox 8. : reporting dysuria, UA + wbc, started oN keflex, Ucx negative, patient still reporting dysuria, c/u Kefflex 9. Pain: left shoulder OA, maintain ROM, c/u Capsacisn cream and menthol salicylate 9. Dispo: tbd Allergies Coded Allergies: morphine (Verified Allergy, Severe, 'I almost ', 12/19/18) acetaminophen (Verified Allergy, Unknown, unknown, 12/19/18) naproxen (Verified Allergy, Unknown, unknown, 12/19/18) TAKES IBUPROFEN AND ASPIRIN AT HOME oxycodone (Unverified Allergy, Unknown, unknown, 12/19/18) propoxyphene (Verified Allergy, Unknown, unknown, 12/19/18) tetanus toxoid, adsorbed (Verified Allergy, Unknown, unknown, 12/19/18) thiothixene (Verified Adverse Reaction, Intermediate, EPS, 12/19/18) hydrocodone (Verified Adverse Reaction, Mild, 'I fall', 12/19/18) hydroxyzine (Verified Adverse Reaction, Mild, vomits, 12/19/18) Vital Signs Vital Signs Date Time Temp Pulse Resp B/P (MAP) Pulse Ox O2 Delivery O2 Flow Rate FiO2 03/31/19 14:00 97.6 76 18 130/72 (91) 96 Microbiology Microbiology 03/29/19 Urine Culture - Final, Complete Current Medications Current Medications Current Medications Medications (Trade) Dose Ordered Sig/Juana Route PRN Reason Start Time Stop Time Status Last Admin Dose Admin Albuterol/ Ipratropium (Duoneb (Ipr 0.5mg/Alb 2.5mg)) 3 ml Q4HP PRN NEB SOB/WHEEZING 03/27/19 14:00 03/27/19 15:16 DC Albuterol/ Ipratropium (Duoneb (Ipr 0.5mg/Alb 2.5mg)) 3 ml TID NEB 03/27/19 16:00 03/31/19 08:03 Amitriptyline HCl (Elavil) 25 mg BID PO 03/27/19 21:00 03/31/19 07:48 Amlodipine Besylate (Norvasc) 7.5 mg DAILY PO 03/28/19 09:00 03/28/19 15:09 DC 03/28/19 08:30 Amlodipine Besylate (Norvasc) 10 mg DAILY PO 03/29/19 09:00 03/31/19 07:48 Aspirin (Aspirin Chewable) 81 mg DAILY PO 03/28/19 09:00 03/31/19 07:49 Atorvastatin Calcium (Lipitor) 20 mg QHS PO 03/27/19 21:00 03/30/19 20:43 Bisacodyl (Dulcolax Suppository) 10 mg DAILYPRN PRN [place] CONSTIPATION 03/27/19 12:45 Capsaicin (Zostrix 0.025%) arms and legs BID TOP 03/27/19 21:00 03/29/19 21:08 DC 03/29/19 20:03 Cephalexin Monohydrate (Keflex) 500 mg BID PO 03/29/19 15:00 04/03/19 15:00 03/31/19 07:48 Divalproex Sodium (Depakote) 1,000 mg QHS PO 03/27/19 21:00 03/30/19 20:44 Docusate Sodium (Colace) 100 mg BID PO 03/27/19 09:00 03/31/19 07:48 Duloxetine HCl (Cymbalta) 90 mg DAILY PO 03/28/19 09:00 03/31/19 07:48 Enoxaparin Sodium (Lovenox) 30 mg DAILY SC 03/28/19 09:00 03/31/19 07:47 Guaifenesin (Robitussin Tab) 400 mg TID PO 03/27/19 16:00 03/31/19 07:47 Home Med (Med Rec Complete!) ASDIRECTED XX 03/27/19 14:45 03/27/19 14:54 DC Ibuprofen (Advil) 400 mg Q8HP PRN PO PAIN 03/28/19 08:45 03/30/19 20:44 Ketorolac Tromethamine (Acular 0.5%) 1 drop QID OD 03/27/19 17:00 03/31/19 07:50 Latanoprost (Xalatan 0.005% Op Soln) 1 drop QHS OU 03/27/19 21:00 03/30/19 20:42 Magnesium Oxide (Mag-Ox) 400 mg DAILY PO 03/28/19 09:00 03/31/19 07:48 Menthol/Methyl Salicylate (Bengay Cream) left shoulder BID TOP 03/27/19 21:00 03/30/19 10:01 Nicotine (Nicoderm Cq 7 Mg) 1 patch DAILY TD 03/28/19 09:00 03/31/19 07:50 Omeprazole (PriLOSEC) 20 mg DAILY PO 03/28/19 09:00 03/31/19 07:48 Patient Own Medication (Patient'S Own Med) 50mg = 1 tablet DAILY PO 03/28/19 09:00 03/31/19 07:49 Phenazopyridine HCl (Pyridium) 200 mg BID PO 03/29/19 15:00 03/30/19 21:00 DC 03/30/19 20:43 Prednisolone Acetate (Predforte 1% Ophth Susp) 2 drop QID OD 03/27/19 17:00 03/31/19 07:50 Quetiapine Fumarate (SEROquel) 12.5 mg BID PO 03/27/19 21:00 03/30/19 07:49 DC 03/29/19 20:00 Quetiapine Fumarate (SEROquel) 25 mg BID PO 03/30/19 09:00 03/31/19 07:48 Senna (Senokot) 1 tab QHS PO 03/27/19 21:00 03/30/19 20:43 Timolol Maleate (Timoptic 0.5% Ophth Kourtney) 1 drop QHS OU 03/27/19 21:00 03/30/19 20:41 Tiotropium [place] (Spiriva Handihaler) 1 inhalation DAILY@08 INH 03/28/19 08:00 03/31/19 08:03 Tobramycin Sulfate (Tobrex 0.3% Ophth Kourtney) 2 drop QID OD 03/27/19 17:00 03/31/19 07:50 Trazodone HCl (Desyrel) 150 mg QHSP PRN PO INSOMNIA 03/27/19 21:00 03/30/19 20:43 AZRA SOUTH MD Mar 31, 2019 17:29
[2019-03-31] MEDS: IBUPROFEN 400 MG TAB PO PRN (19:13)
[2019-03-31] MEDS: QUEtiapine FUMARATE 12.5 MG HALF-TAB PO PRN (19:53)
[2019-03-31 20:00] VITALS: BP 141/69
[2019-03-31] MEDS: SENNA 8.6 MG TAB (SENOKOT) PO SCH (21:32)
[2019-03-31] MEDS: ATORVASTATIN 20 MG TAB PO SCH (21:32)
[2019-03-31] MEDS: DIVALPROEX 500 MG TAB PO SCH (21:32)
[2019-03-31] MEDS: traZODone 50 MG TAB PO PRN (21:32)
[2019-03-31] MEDS: LATANOPROST 0.005% OPHTH SOLN 2.5 ML OU SCH (21:33)
[2019-03-31] MEDS: TIMOLOL MALEATE 0.5% OPHTH SOLN 5 ML OU SCH (21:33)
[2019-04-01 06:00] VITALS: BP 138/76
[2019-04-01] MEDS: TIOTROPIUM INHALER/CAPSULE (SPIRIVA) INH SCH (08:00)
[2019-04-01] MEDS: NICOTINE 7 MG/24 HR TRANSDERMAL TD SCH (08:25)
[2019-04-01] MEDS: IBUPROFEN 400 MG TAB PO PRN (08:25)
[2019-04-01] MEDS: KETOROLAC 0.5% OPHTH SOLN OD SCH ×4 (08:26→20:29)
[2019-04-01] MEDS: prednisoLONE ACET 1% OPHTH SUSP 5ML OD SCH ×4 (08:26→20:29)
[2019-04-01] MEDS: TOBRAMYCIN 0.3% OPHTH SOLN 5 ML OD SCH ×4 (08:26→20:30)
[2019-04-01] MEDS: DULoxetine 30 MG CAP (CYMBALTA) PO SCH (08:27)
[2019-04-01] MEDS: AMITRIPTYLINE 25 MG TAB PO SCH (08:27)
[2019-04-01] MEDS: ASPIRIN 81 MG CHEW TABLET PO SCH (08:27)
[2019-04-01] MEDS: CEPHALEXIN 500 MG CAP PO SCH ×2 (08:27→20:29)
[2019-04-01] MEDS: amLODIPine 10 MG TAB PO SCH (08:28)
[2019-04-01] MEDS: ENOXAPARIN 30 MG/0.3 ML SYR (J1650) SC SCH (08:28)
[2019-04-01] MEDS: QUEtiapine FUMARATE 25 MG TAB PO SCH (08:28)
[2019-04-01] MEDS: DOCUSATE SODIUM 100 MG CAP PO SCH ×2 (08:28→20:28)
[2019-04-01] MEDS: ANALGESIC BALM CRM 120 GM TOP SCH ×2 (08:37→20:36)
[2019-04-01] MEDS: IPRATROPIUM 0.5MG/ALBUTEROL 2.5MG INH SOL UD 3ML (DUONEB)(J7620) NEB SCH ×3 (08:38→14:00)
[2019-04-01] MEDS: OMEPRAZOLE 20 MG CAP PO SCH (08:39)
[2019-04-01] MEDS: guaiFENesin 200 MG TAB PO SCH ×3 (08:39→20:29)
[2019-04-01] MEDS: MAGNESIUM OXIDE 400 MG TAB (MAG-OX) PO SCH (08:39)
[2019-04-01] MEDS ORDERED: zolPIDEM TARTRATE 5 MG TAB PO PRN (12:15)
--- NOTE | 2019-04-01 12:19 | IPNPDOC ---
PM&R Progress Note DATE OF SERVICE: Apr 01, 2019 Shipping Hand Progress Note Subjective: Patient seen today lying in bed stating she has pain all over and worst in her left shoulder, but she was able to get up and walk to her chair. REVIEW OF SYSTEMS: The following is a completed review of systems and has been reviewed. Review of systems otherwise unremarkable. PAIN: Patient self reports burning arm and leg pain EYES: No recent vision changes EARS, NOSE, & THROAT: No throat pain, or dysphagia, or rhinorrhea CARDIOVASCULAR: Denies chest pain or palpitations PULMONARY: Denies shortness of breath, + cough GASTROINTESTINAL: +constipation (improving) GENITOURINARY: +dysuria MUSCULOSKELETAL:weakness NEUROLOGICAL:myositis HEMATOLOGICAL: no easy bruising SKIN: left hip ecchymosis PSYCHIATRIC: +schizoaffective disorder All other review of systems found to be negative. PHYSICAL EXAMINATION: VITAL SIGNS: Please see below. GENERAL: Pleasant and cooperative. No acute distress. HEENT: PERRL. Extraocular movements intact. Clear conjunctiva CARDIOVASCULAR: Regular rate and rhythm. No murmurs, rubs, or gallops. LUNGS: Clear to auscultation bilaterally. No wheezes. No rhonchi ABDOMEN: Soft, nontender, nondistended. Positive bowel sounds. Normal active bowel sounds NEUROLOGICAL: Alert and oriented times three. Cranial nerves II through XII grossly intact. Sensation grossly intact +akathisias EXTREMITIES: 4\5 strength bilateral upper extremities. 4\5 strength right lower extremity.4/5 strength in left lower extremity. (+) restricted left shoulder on internal and external rotation SKIN: left hip bruise ASSESSMENT:74 year-old F with past medical history of Hypothyroidism, HTN, schizoaffective disorder who presents status post falls in setting of myositis. PLAN: 1. Rehab: PT- improve gait, endurance, maintain ROM/strength/stretch bilat LE OT advance ADL management [employer] for cognition 2. neuro: patient with new diagnosis of myositis, etiology unknown resulting in diffuse weakness and difficulty with mobility- will need outpatient neuro work- up 3. CArdiac: HTN c/u home meds medicine consulted to assist in management, monitoring QTC while on Seroquel 4. Resp: hx smoker, with productive cough will start guaifenesin, c/u breathing treatments 5. Psych: hx of schizoaffective disorder with new episodes of delirium c/u home meds, c/u Seroquel BID will decrease dosing to 12.5 and continue prn dosing -will d/c trazodone as poor interaction with Seroquel, will trial Ambien qHS instead 6. GI ppx: protonix 7. DVT ppx: lovenox 8. : reporting dysuria, UA + wbc, started oN keflex, Ucx negative, patient st ill reporting dysuria, c/u Kefflex 9. Pain: left shoulder OA, maintain ROM, c/u menthol salicylate, will trial lidoderm patch to left shoulder -will increase Elavil to 50mg BID, will change Cymbalta to lower dose 30mg BID to avoid serotonin syndrome -will start low dose prednisone 2mg daily for myositis 9. Dispo: tbd Allergies Coded Allergies: morphine (Verified Allergy, Severe, 'I almost ', 12/19/18) acetaminophen (Verified Allergy, Unknown, unknown, 12/19/18) naproxen (Verified Allergy, Unknown, unknown, 12/19/18) TAKES IBUPROFEN AND ASPIRIN AT HOME oxycodone (Unverified Allergy, Unknown, unknown, 12/19/18) propoxyphene (Verified Allergy, Unknown, unknown, 12/19/18) tetanus toxoid, adsorbed (Verified Allergy, Unknown, unknown, 12/19/18) thiothixene (Verified Adverse Reaction, Intermediate, EPS, 12/19/18) hydrocodone (Verified Adverse Reaction, Mild, 'I fall', 12/19/18) hydroxyzine (Verified Adverse Reaction, Mild, vomits, 12/19/18) Vital Signs Vital Signs Date Time Temp Pulse Resp B/P (MAP) Pulse Ox O2 Delivery O2 Flow Rate FiO2 04/01/19 08:28 72 159/75 04/01/19 06:00 97.7 18 96 Microbiology Microbiology 03/29/19 Urine Culture - Final, Complete Current Medications Current Medications Current Medications Medications (Trade) Dose Ordered Sig/Juana Route PRN Reason Start Time Stop Time Status Last Admin Dose Admin Albuterol/ Ipratropium (Duoneb (Ipr 0.5mg/Alb 2.5mg)) 3 ml Q4HP PRN NEB SOB/WHEEZING 03/27/19 14:00 03/27/19 15:16 DC Albuterol/ Ipratropium (Duoneb (Ipr 0.5mg/Alb 2.5mg)) 3 ml TID NEB 03/27/19 16:00 03/31/19 08:03 Amitriptyline HCl (Elavil) 25 mg BID PO 03/27/19 21:00 04/01/19 12:11 DC 04/01/19 08:27 Amitriptyline HCl (Elavil) 50 mg BID PO 04/01/19 21:00 UNV Amlodipine Besylate (Norvasc) 7.5 mg DAILY PO 03/28/19 09:00 03/28/19 15:09 DC 03/28/19 08:30 Amlodipine Besylate (Norvasc) 10 mg DAILY PO 03/29/19 09:00 04/01/19 08:28 Aspirin (Aspirin Chewable) 81 mg DAILY PO 03/28/19 09:00 04/01/19 08:27 Atorvastatin Calcium (Lipitor) 20 mg QHS PO 03/27/19 21:00 03/31/19 21:32 Bisacodyl (Dulcolax Suppository) 10 mg DAILYPRN PRN [place] CONSTIPATION 03/27/19 12:45 Capsaicin (Zostrix 0.025%) arms and legs BID TOP 03/27/19 21:00 03/29/19 21:08 DC 03/29/19 20:03 Cephalexin Monohydrate (Keflex) 500 mg BID PO 03/29/19 15:00 04/03/19 15:00 04/01/19 08:27 Divalproex Sodium (Depakote) 1,000 mg QHS PO 03/27/19 21:00 03/31/19 21:32 Docusate Sodium (Colace) 100 mg BID PO 03/27/19 09:00 04/01/19 08:28 Duloxetine HCl (Cymbalta) 30 mg BID PO 04/01/19 21:00 UNV Duloxetine HCl (Cymbalta) 90 mg DAILY PO 03/28/19 09:00 04/01/19 12:11 DC 04/01/19 08:27 Enoxaparin Sodium (Lovenox) 30 mg DAILY SC 03/28/19 09:00 04/01/19 08:28 Guaifenesin (Robitussin Tab) 400 mg TID PO 03/27/19 16:00 04/01/19 08:39 Home Med (Med Rec Complete!) ASDIRECTED XX 03/27/19 14:45 03/27/19 14:54 DC Ibuprofen (Advil) 400 mg Q8HP PRN PO PAIN 03/28/19 08:45 04/01/19 12:11 DC 04/01/19 08:25 Ketorolac Tromethamine (Acular 0.5%) 1 drop QID OD 03/27/19 17:00 04/01/19 12:08 Latanoprost (Xalatan 0.005% Op Soln) 1 drop QHS OU 03/27/19 21:00 03/31/19 21:33 Magnesium Oxide (Mag-Ox) 400 mg DAILY PO 03/28/19 09:00 04/01/19 08:39 Menthol/Methyl Salicylate (Bengay Cream) left shoulder BID TOP 03/27/19 21:00 03/30/19 10:01 Nicotine (Nicoderm Cq 7 Mg) 1 patch DAILY TD 03/28/19 09:00 04/01/19 08:25 Omeprazole (PriLOSEC) 20 mg DAILY PO 03/28/19 09:00 04/01/19 08:39 Patient Own Medication (Patient'S Own Med) 50mg = 1 tablet DAILY PO 03/28/19 09:00 04/01/19 08:25 Phenazopyridine HCl (Pyridium) 200 mg BID PO 03/29/19 15:00 03/30/19 21:00 DC 03/30/19 20:43 Prednisolone Acetate (Predforte 1% Ophth Susp) 2 drop QID OD 03/27/19 17:00 04/01/19 12:08 Quetiapine Fumarate (SEROquel) 12.5 mg BID PO 03/27/19 21:00 03/30/19 07:49 DC 03/29/19 20:00 Quetiapine Fumarate (SEROquel) 12.5 mg BID PO 04/01/19 21:00 UNV Quetiapine Fumarate (SEROquel) 12.5 mg Q8HP PRN PO ANXIETY/AGITATION 03/31/19 17:30 03/31/19 19:53 Quetiapine Fumarate (SEROquel) 25 mg BID PO 03/30/19 09:00 10/8/19 12:11 DC 04/01/19 08:28 Senna (Senokot) 1 tab QHS PO 03/27/19 21:00 03/31/19 21:32 Timolol Maleate (Timoptic 0.5% Ophth Kourtney) 1 drop QHS OU 03/27/19 21:00 03/31/19 21:33 Tiotropium [place] (Spiriva Handihaler) 1 inhalation DAILY@08 INH 03/28/19 08:00 03/31/19 08:03 Tobramycin Sulfate (Tobrex 0.3% Ophth Kourtney) 2 drop QID OD 03/27/19 17:00 04/01/19 12:09 Trazodone HCl (Desyrel) 150 mg QHSP PRN PO INSOMNIA 03/27/19 21:00 04/01/19 12:11 DC 03/31/19 21:32 Zolpidem Tartrate (Ambien) 5 mg QHSP PRN PO INSOMNIA 04/01/19 12:15 AZRA ANDRADE MD Apr 01, 2019 12:19
[2019-04-01] MEDS: LIDOCAINE 5% (LIDODERM) PATCH TD SCH (13:31)
[2019-04-01] MEDS: predniSONE 1 MG TAB PO SCH (13:31)
[2019-04-01 14:00] VITALS: BP 134/66
[2019-04-01] MEDS ORDERED: FLUCONAZOLE 50MG TABLET PO ONE (16:00)
[2019-04-01] MEDS: QUEtiapine FUMARATE 12.5 MG HALF-TAB PO PRN (18:04)
[2019-04-01 20:00] VITALS: BP 116/58
[2019-04-01] MEDS: SENNA 8.6 MG TAB (SENOKOT) PO SCH (20:28)
[2019-04-01] MEDS: DIVALPROEX 500 MG TAB PO SCH (20:28)
[2019-04-01] MEDS: **NOTE PATIENT COMMENT** MISC XX SCH (20:29)
[2019-04-01] MEDS: AMITRIPTYLINE 50 MG TAB PO SCH (20:29)
[2019-04-01] MEDS: ATORVASTATIN 20 MG TAB PO SCH (20:29)
[2019-04-01] MEDS: LATANOPROST 0.005% OPHTH SOLN 2.5 ML OU SCH (20:30)
[2019-04-01] MEDS: TIMOLOL MALEATE 0.5% OPHTH SOLN 5 ML OU SCH (20:30)
--- NOTE | 2019-04-01 20:59 | IPNPDOC ---
Subjective Date Seen The patient was seen on 04/01/19. Subjective Chief Complaint/HPI Assessment/Plan 74 year-old woman with a history of HTN, hypothyroidism, schizoaffective disorder who was admitted into the hospital with frequent falls and found to have myositis of unclear etiology at this time, now in ARU for rehabilitation. General: Denies: ROS Unobtainable, Chills, Night Sweats, Fatigue, Malaise, Nor mal Appetite, Other Symptoms Constitutional: Reports: Fatigue Eyes: Reports: Pain ENT: Denies: Head Aches, Ear Pain, Dysphagia, Sinus Congestion, Post Nasal Drip, Sore Throat, Epistaxis, Other Symptoms Skin: Denies: Rash, Lesions, Jaundice, Bruising, Itching, Dry, Breakdown, Nail Changes, Other Pulmonary: Denies: Dyspnea, Cough, Pleuritic Chest Pain, Other Symptoms Cardiovascular: Denies: Chest Pain, Palpitations, Orthopnea, Paroxysmal Noc. Dyspnea, Edema, Lt Headedness, Other Symptoms Gastrointestinal: Denies: Nausea, Vomiting, Abdominal Pain, Diarrhea, Constipation, Melena, Hematochezia, Other Symptoms Genitourinary: Denies: Dysuria, Frequency, Incontinence, Hematuria, Retention, Other Symptoms Hematologic: Denies: Bruising, Bleeding Excessively, Petecchia, Purpura, Enlarged Lymph Nodes, Other Hematologic Endocrine: Denies: Polydipsia, Polyphagia, Polyuria, Heat Intolerance, Cold Intolerance, Other Endocrine Sx Musculoskeletal: Reports: Back Pain, Joint Pain Neurological: Reports: Weakness Psych: Reports: Depression Objective Physical Examination General Exam: Positive: Alert, No Acute Distress Eye Exam: Positive: PERRLA, Conjunctiva & lids normal, EOMI; Negative: Sclera icteric ENT Exam: Positive: Atraumatic, Mucous membr. moist/pink, Pharynx Normal Neck Exam: Positive: Supple; Negative: JVD, thyromegaly Chest Exam: Positive: Clear to auscultation, Normal air movement Heart Exam: Positive: Rate Normal, Regular Rhythm, Normal S1, Normal S2; Negative: Murmurs, Rubs Abdomen Exam: Positive: Normal bowel sounds, Soft; Negative: Tenderness, Hepatospenomegaly Extremity Exam: Positive: Normal pulses; Negative: Clubbing, Cyanosis, Edema, Tenderness, Swelling Skin Exam: Positive: Nl turgor and temperature; Negative: Rash, Breakdown, Lesion Neuro Exam: Positive: Normal Speech, Sensation Intact, Cranial Nerves 3-12 NL, Reflexes 2+, Other (4/5 strength in lower extremities while sitted in chair. L appears slightly weaker than right. slouching but sits up straight on request. Clear speech, soft spoken, ) Psych Exam: Positive: Anxiety, Other (oriented x2) Assessment /Plan Assessment Frequent falls with associated weakness and muscle aches -in ARU receiving PT to improve gait, endurance, maintain ROM/strength/stretch bilat LE, per ARU physician Myositis: -Elevated CK with diffuse weakness and myalgias, will need outpatient work up for definitive diagnosis HTN: -increased amlodipine to 10mg starting this morning Smoking: -On nicotine patch 7mg/24h Schizoaffective disorder: -Depakote 1g QHS -Cymbalta 90 QD - Due to agitation today I increased her dose of Seroquel to 25 twice a day . Continue to monitor EKG for QTc prolongation -Elavil 25 BID -Trazodone 150 QHS PRN MSK pain complaints: -Topical capsaicin BID -Bengay for left shoulder BID -Elavil 25 BID COPD -Robitussin for cough -duonebs TID GERD: -Omeprazole 20 Constipation: -dulcolax suppository PRN -colace BID -Mag oxide 400 QD -Senna QHS DVT prophylasix: Lovenox Dispo: per ARU Plan/VTE VTE Prophylaxis Ordered?: Yes Plan IVF: Continue Diet: Continue Current Activity: Continue Current Therapy: PT, OT VS, I&O, 24H, Fishbone Vital Signs/I&O Vital Signs Date Time Temp Pulse Resp B/P (MAP) Pulse Ox O2 Delivery O2 Flow Rate FiO2 04/01/19 14:00 98.1 78 18 134/66 (88) 95 I&O- Last 24 Hours up to 6 AM 04/01/19 06:00 Intake Total 1500 ml Balance 1500 ml Laboratory Data 24H LABS Laboratory Tests 03/30/19 10:13 Red Blood Count 3.16, Mean Corpuscular Volume 107.0, Mean Corpuscular Hemoglobin 35.4, Mean Corpuscular Hemoglobin Concent 33.1, Red Cell Distribution Width 13.3, Calcium Level 8.2 Microbiology Microbiology 03/29/19 Urine Culture - Final, Complete JUAQUIN GARCIA [facility] Apr 01, 2019 20:59
[2019-04-01] MEDS ORDERED: QUEtiapine FUMARATE 12.5 MG HALF-TAB PO SCH (21:00)
[2019-04-02] MEDS ORDERED: HALOPERIDOL 5 MG/ML VIAL (J1630) IM ONE (02:15)
[2019-04-02] MEDS ORDERED: HALOPERIDOL 5 MG/ML VIAL (J1630) IM PRN (02:30)
[2019-04-02] MEDS: QUEtiapine FUMARATE 12.5 MG HALF-TAB PO PRN (03:49)
--- NOTE | 2019-04-02 04:01 | IPNPDOC ---
Text Note Date of Service The patient was seen on 04/02/19. NOTE This is an interim update progress note from night hospitalist team: Patient became delirious and significantly agitated overnight. Patient is on a lot of medications with anti-cholinergic properties. Patient was given 1 g IM Haldol around 2 AM, but prn seroquel was given just before 4am and the agitation persisted. Night hospitalist went to see pt and examine her overall status and specifically her neuro state. She was oriented to person only and remained agitated on exam, expressing a desire to get out of bed and leave the room. A sitter came up from the ED and a formal 1-to-1 sitter order was placed. Patient has an extensive psychiatric history, is on multiple psych meds, and has many psychosocial issues in general. Patient would likely benefit from psychiatr ic consultation to thoroughly address drug to drug interactions and to reconcile said medications. Thank you. VS,Fishbone, I+O VS, Fishbone, I+O Vital Signs Date Time Temp Pulse Resp B/P (MAP) Pulse Ox O2 Delivery O2 Flow Rate FiO2 04/01/19 20:00 98.0 76 18 116/58 (12) 92 I&O- Last 24 Hours up to 6 AM 04/02/19 06:00 Intake Total 1020 ml Balance 1020 ml ZORAN ANTHONY PGY-1 Apr 02, 2019 04:01
[2019-04-02 05:00] VITALS: BP 125/61
[2019-04-02 06:42] LABS: HEMATOCRIT 32.2 % (36.0-47.0); HEMOGLOBIN 10.6 g/dl (12.0-15.5); MEAN CORPUSCULAR HEMOGLOBIN 35.1 pg (27.0-33.0); MEAN CORPUSCULAR HGB CONC 32.9 g/dl (32.0-36.5); MEAN CORPUSCULAR VOLUME 106.6 fl (80.0-96.0); PLATELET COUNT, AUTOMATED 195 10^3/uL (150-450); RED BLOOD COUNT 3.02 10^6/uL (4.00-5.40); WHITE BLOOD COUNT 7.6 10^3/uL (4.0-10.0)
[2019-04-02 07:14] LABS: ALBUMIN 2.3 GM/DL (3.2-5.2); ALT/SGPT 19 U/L (12-78); BILIRUBIN,TOTAL 0.2 MG/DL (0.2-1.0); BLOOD UREA NITROGEN 13 MG/DL (7-18); CALCIUM LEVEL 8.5 MG/DL (8.8-10.2); CARBON DIOXIDE LEVEL 35 MEQ/L (21-32); CHLORIDE LEVEL 102 MEQ/L (98-107); CREATININE FOR GFR 0.76 MG/DL (0.55-1.30); GLOMERULAR FILTRATION RATE > 60.0 (>39); GLUCOSE, FASTING 78 MG/DL (70-100); POTASSIUM SERUM 4.2 MEQ/L (3.5-5.1); SODIUM LEVEL 139 MEQ/L (136-145)
[2019-04-02] MEDS: TIOTROPIUM INHALER/CAPSULE (SPIRIVA) INH SCH (08:00)
[2019-04-02] MEDS: IPRATROPIUM 0.5MG/ALBUTEROL 2.5MG INH SOL UD 3ML (DUONEB)(J7620) NEB SCH ×3 (08:00→20:00)
[2019-04-02] MEDS: MAGNESIUM OXIDE 400 MG TAB (MAG-OX) PO SCH (08:52)
[2019-04-02] MEDS: predniSONE 1 MG TAB PO SCH (08:52)
[2019-04-02] MEDS: DOCUSATE SODIUM 100 MG CAP PO SCH ×2 (08:52→21:21)
[2019-04-02] MEDS: guaiFENesin 200 MG TAB PO SCH ×3 (08:52→21:21)
[2019-04-02] MEDS: ASPIRIN 81 MG CHEW TABLET PO SCH (08:52)
[2019-04-02] MEDS: AMITRIPTYLINE 50 MG TAB PO SCH (08:53)
[2019-04-02] MEDS: DULoxetine 30 MG CAP (CYMBALTA) PO SCH ×2 (08:53→21:21)
[2019-04-02] MEDS: OMEPRAZOLE 20 MG CAP PO SCH (08:53)
[2019-04-02] MEDS: amLODIPine 10 MG TAB PO SCH (08:53)
[2019-04-02] MEDS: CEPHALEXIN 500 MG CAP PO SCH ×2 (08:53→21:21)
[2019-04-02] MEDS: ENOXAPARIN 30 MG/0.3 ML SYR (J1650) SC SCH (08:54)
[2019-04-02] MEDS: LIDOCAINE 5% (LIDODERM) PATCH TD SCH (08:55)
[2019-04-02] MEDS: NICOTINE 7 MG/24 HR TRANSDERMAL TD SCH (08:55)
[2019-04-02] MEDS: TOBRAMYCIN 0.3% OPHTH SOLN 5 ML OD SCH ×4 (08:56→21:26)
[2019-04-02] MEDS: prednisoLONE ACET 1% OPHTH SUSP 5ML OD SCH ×4 (08:56→21:26)
[2019-04-02] MEDS: KETOROLAC 0.5% OPHTH SOLN OD SCH ×4 (08:57→21:26)
[2019-04-02] MEDS: ANALGESIC BALM CRM 120 GM TOP SCH ×2 (08:57→21:00)
[2019-04-02 10:24] LABS: VALPROIC ACID (DEPAKOTE) 78.3 UG/ML (50.0-100.0)
[2019-04-02] MEDS ORDERED: LORazepam 2 MG/ML VIAL (J2060) IM PRN (10:30)
[2019-04-02] MEDS ORDERED: PILL CUTTER 1 EACH XX PRN (12:15)
[2019-04-02] MEDS ORDERED: QUEtiapine FUMARATE 25 MG TAB PO PRN (13:00)
[2019-04-02 14:00] VITALS: BP 141/71
[2019-04-02] MEDS: PROPRANOLOL 10 MG TAB PO SCH ×2 (17:07→21:00)
--- NOTE | 2019-04-02 17:19 | IPNPDOC ---
PM&R Progress Note DATE OF SERVICE: Apr 02, 2019 Machine Feeder Raw Stock Progress Note Subjective: Patient seen this morning lethargic after receiving Seroquel and Haldol for agitation overnight, however later was able to get up, participate in therapy and agreed to a shower. She states she is feeling ok today, but still has pain. REVIEW OF SYSTEMS: The following is a completed review of systems and has been reviewed. Review of systems otherwise unremarkable. PAIN: Patient self reports burning arm and leg pain EYES: No recent vision changes EARS, NOSE, & THROAT: No throat pain, or dysphagia, or rhinorrhea CARDIOVASCULAR: Denies chest pain or palpitations PULMONARY: Denies shortness of breath, + cough GASTROINTESTINAL: +constipation (improving) GENITOURINARY: +dysuria MUSCULOSKELETAL:weakness NEUROLOGICAL:myositis HEMATOLOGICAL: no easy bruising SKIN: left hip ecchymosis PSYCHIATRIC: +schizoaffective disorder All other review of systems found to be negative. PHYSICAL EXAMINATION: VITAL SIGNS: Please see below. GENERAL: Pleasant and cooperative. No acute distress. HEENT: PERRL. Extraocular movements intact. Clear conjunctiva CARDIOVASCULAR: Regular rate and rhythm. No murmurs, rubs, or gallops. LUNGS: Clear to auscultation bilaterally. No wheezes. No rhonchi ABDOMEN: Soft, nontender, nondistended. Positive bowel sounds. Normal active bowel sounds NEUROLOGICAL: Alert and oriented times three. Cranial nerves II through XII leander ssly intact. Sensation grossly intact +akathisias EXTREMITIES: 4\5 strength bilateral upper extremities. 4\5 strength right lower extremity.4/5 strength in left lower extremity. (+) restricted left shoulder on internal and external rotation SKIN: left hip bruise ASSESSMENT:74 year-old F with past medical history of Hypothyroidism, HTN, schizoaffective disorder who presents status post falls in setting of myositis. PLAN: 1. Rehab: PT- improve gait, endurance, maintain ROM/strength/stretch bilat LE, ambulating with RW well OT advance ADL management [employer]ODUCT [employer]ELOPMENT for cognition 2. neuro: patient with new diagnosis of myositis, etiology unknown resulting in diffuse weakness and difficulty with mobility- will need outpatient neuro work- up 3. CArdiac: HTN c/u home meds medicine consulted to assist in management, monitoring QTC while on Seroquel 4. Resp: hx smoker, with productive cough will start guaifenesin, c/u breathing treatments 5. Psych: hx of schizoaffective disorder with episodes of delirium and agitation at night -changing Seroquel to 50m qHS and adding Seroquel 25mg q6h agitation, staff encouraged to gently redirect patient at night and help her get to the bathroom in a timely manner as this has been adding to her agitation in the evening, may use IM Ativan as a last resort if patient's behavior continues to escalate -standing low dose Propanol for agitation also ordered overnight -Will trial Restoril 15mg qHS for insomnia -d/c'd trazodone for insomnia as poor interaction with Seroquel 6. GI ppx: protonix 7. DVT ppx: lovenox 8. : reporting dysuria, UA + wbc, started on keflex, Ucx negative, patient still reporting dysuria, c/u Kefflex last dose tomorrow, s/p one time dose Diflucan 04/01/19 -oxybutynin 5mg qHS starting qHS tonight (patient on Myrbetriq at home) 9. Pain: left shoulder OA, maintain ROM, c/u menthol salicylate, will trial lidoderm patch to left shoulder -will return Elavil dosing to 25mg BID, and continue Cymbalta at lower dose of 30mg BID to avoid avoid serotonin syndrome and anticholinergic effects -c/u low dose prednisone 2mg daily for myositis, will consider increasing to 5mg daily when overnight psychotic episodes improve 9. Dispo: tbd Allergies Coded Allergies: morphine (Verified Allergy, Severe, 'I almost ', 12/19/18) acetaminophen (Verified Allergy, Unknown, unknown, 12/19/18) naproxen (Verified Allergy, Unknown, unknown, 12/19/18) TAKES IBUPROFEN AND ASPIRIN AT HOME oxycodone (Unverified Allergy, Unknown, unknown, 12/19/18) propoxyphene (Verified Allergy, Unknown, unknown, 12/19/18) tetanus toxoid, adsorbed (Verified Allergy, Unknown, unknown, 12/19/18) thiothixene (Verified Adverse Reaction, Intermediate, EPS, 12/19/18) hydrocodone (Verified Adverse Reaction, Mild, 'I fall', 12/19/18) hydroxyzine (Verified Adverse Reaction, Mild, vomits, 12/19/18) Vital Signs Vital Signs Date Time Temp Pulse Resp B/P (MAP) Pulse Ox O2 Delivery O2 Flow Rate FiO2 04/02/19 17:07 71 141/71 04/02/19 14:00 96.4 18 99 Laboratory Data CBC/BMP Laboratory Tests 04/02/19 06:24 Red Blood Count 3.02 L, Mean Corpuscular Volume 106.6 H, Mean Corpuscular Hemoglobin 35.1 H, Mean Corpuscular Hemoglobin Concent 32.9, Red Cell Distribution Width 12.8, Calcium Level 8.5 L, Aspartate Amino Transf (AST/SGOT) 18, Alanine Aminotransferase (ALT/SGPT) 19, Alkaline Phosphatase 161 H, Total Bilirubin 0.2, Total Protein 6.0 L, Albumin 2.3 L Labs 24H Laboratory Tests 2 04/02/19 06:24: Nucleated Red Blood Cells % (auto) 0.0, Anion Gap 2L, Glomerular Filtration Rate > 60.0, Blood Urea Nitrogen 13, Creatinine 0.76, Sodium Level 139, Potassium Level 4.2, Chloride Level 102, Carbon Dioxide Level 35H, Calcium Level 8.5L, Aspartate Amino Transf (AST/SGOT) 18, Alanine Aminotransferase (ALT/SGPT) 19, Alkaline Phosphatase 161H, Total Bilirubin 0.2, Total Protein 6.0L, Albumin 2.3L, Albumin/Globulin Ratio 0.62L, Valproic Acid (Depakene) Level 78.3 Microbiology Microbiology 03/29/19 Urine Culture - Final, Complete Current Medications Current Medications Current Medications Medications (Trade) Dose Ordered Sig/Juana Route PRN Reason Start Time Stop Time Status Last Admin Dose Admin Albuterol/ Ipratropium (Duoneb (Ipr 0.5mg/Alb 2.5mg)) 3 ml Q4HP PRN NEB SOB/WHEEZING 03/27/19 14:00 03/27/19 15:16 DC Albuterol/ Ipratropium (Duoneb (Ipr 0.5mg/Alb 2.5mg)) 3 ml RTID NEB 04/01/19 14:00 Albuterol/ Ipratropium (Duoneb (Ipr 0.5mg/Alb 2.5mg)) 3 ml TID NEB 03/27/19 16:00 04/01/19 14:04 DC 03/31/19 08:03 Amitriptyline HCl (Elavil) 25 mg BID PO 03/27/19 21:00 04/01/19 12:11 DC 04/01/19 08:27 Amitriptyline HCl (Elavil) 25 mg BID PO 04/02/19 21:00 Amitriptyline HCl (Elavil) 50 mg BID PO 04/01/19 21:00 04/02/19 10:21 DC 04/02/19 08:53 Amlodipine Besylate (Norvasc) 7.5 mg DAILY PO 03/28/19 09:00 03/28/19 15:09 DC 03/28/19 08:30 Amlodipine Besylate (Norvasc) 10 mg DAILY PO 03/29/19 09:00 04/02/19 08:53 Aspirin (Aspirin Chewable) 81 mg DAILY PO 03/28/19 09:00 04/02/19 08:52 Atorvastatin Calcium (Lipitor) 20 mg QHS PO 03/27/19 21:00 04/01/19 20:29 Bisacodyl (Dulcolax Suppository) 10 mg DAILYPRN PRN [place] CONSTIPATION 03/27/19 12:45 Capsaicin (Zostrix 0.025%) arms and legs BID TOP 03/27/19 21:00 03/29/19 21:08 DC 03/29/19 20:03 Cephalexin Monohydrate (Keflex) 500 mg BID PO 03/29/19 15:00 04/03/19 15:00 04/02/19 08:53 Divalproex Sodium (Depakote) 1,000 mg QHS PO 03/27/19 21:00 04/01/19 20:28 Docusate Sodium (Colace) 100 mg BID PO 03/27/19 09:00 04/02/19 08:52 Duloxetine HCl (Cymbalta) 30 mg BID PO 04/02/19 09:00 04/02/19 08:53 Duloxetine HCl (Cymbalta) 90 mg DAILY PO 03/28/19 09:00 04/01/19 12:11 DC 04/01/19 08:27 Enoxaparin Sodium (Lovenox) 30 mg DAILY SC 03/28/19 09:00 04/02/19 08:54 Guaifenesin (Robitussin Tab) 400 mg TID PO 03/27/19 16:00 04/02/19 17:06 Haloperidol (Haldol) 1 mg Q4HP PRN IM AGITATION 04/02/19 02:30 04/02/19 02:45 DC 04/02/19 02:42 Home Med (Med Rec Complete!) ASDIRECTED XX 03/27/19 14:45 03/27/19 14:54 DC Ibuprofen (Advil) 400 mg Q8HP PRN PO PAIN 03/28/19 08:45 04/01/19 12:11 DC 04/01/19 08:25 Ketorolac Tromethamine (Acular 0.5%) 1 drop QID OD 03/27/19 17:00 04/02/19 17:07 Latanoprost (Xalatan 0.005% Op Soln) 1 drop QHS OU 03/27/19 21:00 04/01/19 20:30 Lidocaine (Lidoderm Patch) 1 patch DAILY TD 04/01/19 09:00 04/02/19 08:55 Lorazepam (Ativan) 1 mg Q4HP PRN IM AGITATION 04/02/19 10:30 Magnesium Oxide (Mag-Ox) 400 mg DAILY PO 03/28/19 09:00 04/02/19 08:52 Menthol/Methyl Salicylate (Bengay Cream) left shoulder BID TOP 03/27/19 21:00 03/30/19 10:01 Nicotine (Nicoderm Cq 7 Mg) 1 patch DAILY TD 03/28/19 09:00 04/02/19 08:55 Non-Formulary Medication ( See Comment Field Below ) REMOVE LIDODERM PATCH DAILY@21 XX 04/01/19 21:00 04/01/19 20:29 Omeprazole (PriLOSEC) 20 mg DAILY PO 03/28/19 09:00 04/02/19 08:53 Oxybutynin Chloride (Ditropan Xl) 5 mg QHS PO 04/02/19 21:00 Patient Own Medication (Patient'S Own Med) 50mg = 1 tablet DAILY PO 03/28/19 09:00 04/02/19 08:57 Phenazopyridine HCl (Pyridium) 200 mg BID PO 03/29/19 15:00 03/30/19 21:00 DC 03/30/19 20:43 Prednisolone Acetate (Predforte 1% Ophth Susp) 2 drop QID OD 03/27/19 17:00 04/02/19 17:07 Prednisone (Deltasone) 2 mg DAILY PO 04/01/19 09:00 04/02/19 08:52 Propranolol HCl (Inderal) 5 mg 0100,0500,1700,2100 PO 04/02/19 17:00 04/02/19 17:07 Quetiapine Fumarate (SEROquel) 12.5 mg BID PO 03/27/19 21:00 03/30/19 07:49 DC 03/29/19 20:00 Quetiapine Fumarate (SEROquel) 12.5 mg BID PO 04/01/19 21:00 04/02/19 10:08 DC 04/01/19 20:29 Quetiapine Fumarate (SEROquel) 12.5 mg Q8HP PRN PO ANXIETY/AGITATION 03/31/19 17:30 04/02/19 10:11 DC 04/02/19 03:49 Quetiapine Fumarate (SEROquel) 25 mg BID PO 03/30/19 09:00 04/01/19 12:11 DC 04/01/19 08:28 Quetiapine Fumarate (SEROquel) 25 mg Q6H PRN PO ANXIETY/AGITATION 04/02/19 16:45 Quetiapine Fumarate (SEROquel) 25 mg TID PRN PO ANXIETY/AGITATION 04/02/19 13:00 04/02/19 16:50 DC Quetiapine Fumarate (SEROquel) 50 mg QHS PO 04/02/19 21:00 Senna (Senokot) 1 tab QHS PO 03/27/19 21:00 04/01/19 20:28 Temazepam (Restoril) 15 mg DAILY@2300 PRN PO SLEEP 04/02/19 23:00 Timolol Maleate (Timoptic 0.5% Ophth Kourtney) 1 drop QHS OU 03/27/19 21:00 04/01/19 20:30 Tiotropium [place] (Spiriva Handihaler) 1 inhalation DAILY@08 INH 03/28/19 08:00 03/31/19 08:03 Tobramycin Sulfate (Tobrex 0.3% Ophth Kourtney) 2 drop QID OD 03/27/19 17:00 04/02/19 17:08 Trazodone HCl (Desyrel) 150 mg QHSP PRN PO INSOMNIA 03/27/19 21:00 04/01/19 12:11 DC 03/31/19 21:32 Zolpidem Tartrate (Ambien) 5 mg QHSP PRN PO INSOMNIA 04/01/19 12:15 04/02/19 10:08 DC 04/02/19 00:53 AZRA SOUTH MD Apr 02, 2019 17:19
[2019-04-02 20:00] VITALS: BP 174/89
[2019-04-02] MEDS ORDERED: QUEtiapine FUMARATE 50 MG TAB PO SCH (21:00)
[2019-04-02] MEDS: DIVALPROEX 500 MG TAB PO SCH (21:21)
[2019-04-02] MEDS: oxyBUTYnin *DITROPAN XL* 5 MG TABCR PO SCH (21:21)
[2019-04-02] MEDS: SENNA 8.6 MG TAB (SENOKOT) PO SCH (21:21)
[2019-04-02] MEDS: ATORVASTATIN 20 MG TAB PO SCH (21:21)
[2019-04-02] MEDS: AMITRIPTYLINE 25 MG TAB PO SCH (21:22)
[2019-04-02] MEDS: **NOTE PATIENT COMMENT** MISC XX SCH (21:24)
[2019-04-02] MEDS: LATANOPROST 0.005% OPHTH SOLN 2.5 ML OU SCH (21:26)
[2019-04-02] MEDS: TIMOLOL MALEATE 0.5% OPHTH SOLN 5 ML OU SCH (21:26)
[2019-04-02] MEDS ORDERED: TEMAZEPAM 15 MG CAP PO PRN (23:00)
[2019-04-03] MEDS: PROPRANOLOL 10 MG TAB PO SCH ×4 (01:00→20:52)
[2019-04-03] MEDS: QUEtiapine FUMARATE 25 MG TAB PO PRN (02:25)
[2019-04-03 05:40] VITALS: BP 169/78
[2019-04-03] MEDS: IPRATROPIUM 0.5MG/ALBUTEROL 2.5MG INH SOL UD 3ML (DUONEB)(J7620) NEB SCH ×2 (06:23→14:49)
[2019-04-03] MEDS: TIOTROPIUM INHALER/CAPSULE (SPIRIVA) INH SCH (06:23)
[2019-04-03] MEDS: NICOTINE 7 MG/24 HR TRANSDERMAL TD SCH (09:00)
[2019-04-03] MEDS: prednisoLONE ACET 1% OPHTH SUSP 5ML OD SCH ×4 (09:00→20:54)
[2019-04-03] MEDS: ENOXAPARIN 30 MG/0.3 ML SYR (J1650) SC SCH (09:00)
[2019-04-03] MEDS: ANALGESIC BALM CRM 120 GM TOP SCH ×2 (09:00→20:58)
[2019-04-03] MEDS: TOBRAMYCIN 0.3% OPHTH SOLN 5 ML OD SCH ×4 (09:00→20:54)
[2019-04-03] MEDS: KETOROLAC 0.5% OPHTH SOLN OD SCH ×4 (09:00→20:54)
[2019-04-03] MEDS: predniSONE 1 MG TAB PO SCH (09:24)
[2019-04-03] MEDS: amLODIPine 10 MG TAB PO SCH (09:24)
[2019-04-03] MEDS: AMITRIPTYLINE 25 MG TAB PO SCH ×2 (09:24→20:51)
[2019-04-03] MEDS: ASPIRIN 81 MG CHEW TABLET PO SCH (09:26)
[2019-04-03] MEDS: DULoxetine 30 MG CAP (CYMBALTA) PO SCH ×2 (09:28→20:53)
[2019-04-03] MEDS: guaiFENesin 200 MG TAB PO SCH ×3 (09:30→20:53)
[2019-04-03] MEDS: DOCUSATE SODIUM 100 MG CAP PO SCH ×2 (09:30→20:53)
[2019-04-03] MEDS: MAGNESIUM OXIDE 400 MG TAB (MAG-OX) PO SCH (09:30)
[2019-04-03] MEDS: OMEPRAZOLE 20 MG CAP PO SCH (09:31)
[2019-04-03] MEDS: CEPHALEXIN 500 MG CAP PO SCH (09:31)
[2019-04-03] MEDS: LIDOCAINE 5% (LIDODERM) PATCH TD SCH (09:36)
[2019-04-03] MEDS ORDERED: LORazepam 0.5 MG TAB PO PRN (10:00)
[2019-04-03 14:00] VITALS: BP 119/71
[2019-04-03 20:00] VITALS: BP 168/86
[2019-04-03] MEDS: DIVALPROEX 500 MG TAB PO SCH (20:51)
[2019-04-03] MEDS: oxyBUTYnin *DITROPAN XL* 5 MG TABCR PO SCH (20:51)
[2019-04-03] MEDS: ATORVASTATIN 20 MG TAB PO SCH (20:51)
[2019-04-03] MEDS: TEMAZEPAM 15 MG CAP PO SCH (20:52)
[2019-04-03] MEDS: SENNA 8.6 MG TAB (SENOKOT) PO SCH (20:53)
[2019-04-03] MEDS: TIMOLOL MALEATE 0.5% OPHTH SOLN 5 ML OU SCH (20:54)
[2019-04-03] MEDS: LATANOPROST 0.005% OPHTH SOLN 2.5 ML OU SCH (20:54)
[2019-04-03] MEDS: **NOTE PATIENT COMMENT** MISC XX SCH (20:58)
[2019-04-03] MEDS: QUEtiapine FUMARATE 25 MG TAB PO SCH (20:58)
[2019-04-03] MEDS ORDERED: TEMAZEPAM 7.5 MG CAP PO PRN (21:00)
[2019-04-04] MEDS: PROPRANOLOL 10 MG TAB PO SCH ×4 (00:37→20:45)
[2019-04-04 05:43] VITALS: BP 159/77
[2019-04-04] MEDS: predniSONE 1 MG TAB PO SCH (08:51)
[2019-04-04] MEDS: MAGNESIUM OXIDE 400 MG TAB (MAG-OX) PO SCH (08:51)
[2019-04-04] MEDS: guaiFENesin 200 MG TAB PO SCH ×3 (08:51→20:44)
[2019-04-04] MEDS: NICOTINE 7 MG/24 HR TRANSDERMAL TD SCH (08:51)
[2019-04-04] MEDS: AMITRIPTYLINE 25 MG TAB PO SCH ×2 (08:51→20:44)
[2019-04-04] MEDS: ASPIRIN 81 MG CHEW TABLET PO SCH (08:51)
[2019-04-04] MEDS: DOCUSATE SODIUM 100 MG CAP PO SCH ×2 (08:51→20:45)
[2019-04-04] MEDS: DULoxetine 30 MG CAP (CYMBALTA) PO SCH ×2 (08:52→20:44)
[2019-04-04] MEDS: amLODIPine 10 MG TAB PO SCH (08:52)
[2019-04-04] MEDS: ENOXAPARIN 30 MG/0.3 ML SYR (J1650) SC SCH (08:52)
[2019-04-04] MEDS: prednisoLONE ACET 1% OPHTH SUSP 5ML OD SCH ×4 (08:52→20:49)
[2019-04-04] MEDS: KETOROLAC 0.5% OPHTH SOLN OD SCH ×4 (08:52→20:50)
[2019-04-04] MEDS: TOBRAMYCIN 0.3% OPHTH SOLN 5 ML OD SCH ×4 (08:52→20:51)
[2019-04-04] MEDS: OMEPRAZOLE 20 MG CAP PO SCH (08:52)
[2019-04-04] MEDS: ANALGESIC BALM CRM 120 GM TOP SCH ×2 (08:53→20:45)
[2019-04-04] MEDS: LIDOCAINE 5% (LIDODERM) PATCH TD SCH (08:55)
[2019-04-04] MEDS: IPRATROPIUM 0.5MG/ALBUTEROL 2.5MG INH SOL UD 3ML (DUONEB)(J7620) NEB SCH ×2 (09:18→14:00)
[2019-04-04] MEDS: TIOTROPIUM INHALER/CAPSULE (SPIRIVA) INH SCH (09:18)
[2019-04-04 14:00] VITALS: BP 127/62
[2019-04-04 19:55] VITALS: BP 139/72
[2019-04-04] MEDS: oxyBUTYnin *DITROPAN XL* 5 MG TABCR PO SCH (20:44)
[2019-04-04] MEDS: TEMAZEPAM 15 MG CAP PO SCH (20:44)
[2019-04-04] MEDS: QUEtiapine FUMARATE 25 MG TAB PO SCH (20:44)
[2019-04-04] MEDS: DIVALPROEX 500 MG TAB PO SCH (20:44)
[2019-04-04] MEDS: SENNA 8.6 MG TAB (SENOKOT) PO SCH (20:45)
[2019-04-04] MEDS: ATORVASTATIN 20 MG TAB PO SCH (20:45)
[2019-04-04] MEDS: LATANOPROST 0.005% OPHTH SOLN 2.5 ML OU SCH (20:49)
[2019-04-04] MEDS: TIMOLOL MALEATE 0.5% OPHTH SOLN 5 ML OU SCH (20:50)
[2019-04-04] MEDS: **NOTE PATIENT COMMENT** MISC XX SCH (20:51)
[2019-04-05] MEDS: PROPRANOLOL 10 MG TAB PO SCH ×4 (01:00→20:18)
[2019-04-05 06:00] VITALS: BP 121/70
[2019-04-05 07:01] LABS: HEMATOCRIT 30.9 % (36.0-47.0); HEMOGLOBIN 10.2 g/dl (12.0-15.5); MEAN CORPUSCULAR HEMOGLOBIN 35.4 pg (27.0-33.0); MEAN CORPUSCULAR VOLUME 107.3 fl (80.0-96.0); PLATELET COUNT, AUTOMATED 162 10^3/uL (150-450); RED BLOOD COUNT 2.88 10^6/uL (4.00-5.40); WHITE BLOOD COUNT 7.5 10^3/uL (4.0-10.0)
[2019-04-05] MEDS: IPRATROPIUM 0.5MG/ALBUTEROL 2.5MG INH SOL UD 3ML (DUONEB)(J7620) NEB SCH ×3 (07:37→20:00)
[2019-04-05] MEDS: TIOTROPIUM INHALER/CAPSULE (SPIRIVA) INH SCH (07:37)
[2019-04-05] MEDS: ENOXAPARIN 30 MG/0.3 ML SYR (J1650) SC SCH ×2 (08:45→09:00)
[2019-04-05] MEDS: DOCUSATE SODIUM 100 MG CAP PO SCH ×2 (08:45→20:17)
[2019-04-05] MEDS: OMEPRAZOLE 20 MG CAP PO SCH (08:45)
[2019-04-05] MEDS: MAGNESIUM OXIDE 400 MG TAB (MAG-OX) PO SCH (08:45)
[2019-04-05] MEDS: ASPIRIN 81 MG CHEW TABLET PO SCH (08:45)
[2019-04-05] MEDS: DULoxetine 30 MG CAP (CYMBALTA) PO SCH ×2 (08:45→20:17)
[2019-04-05] MEDS: AMITRIPTYLINE 25 MG TAB PO SCH ×2 (08:46→20:17)
[2019-04-05] MEDS: amLODIPine 10 MG TAB PO SCH (08:46)
[2019-04-05] MEDS: guaiFENesin 200 MG TAB PO SCH ×3 (08:46→20:18)
[2019-04-05] MEDS: predniSONE 1 MG TAB PO SCH (08:46)
[2019-04-05] MEDS: NICOTINE 7 MG/24 HR TRANSDERMAL TD SCH (08:47)
[2019-04-05] MEDS: LIDOCAINE 5% (LIDODERM) PATCH TD SCH (08:47)
[2019-04-05] MEDS: ANALGESIC BALM CRM 120 GM TOP SCH ×2 (08:48→20:24)
[2019-04-05] MEDS: KETOROLAC 0.5% OPHTH SOLN OD SCH ×4 (08:48→20:19)
[2019-04-05] MEDS: TOBRAMYCIN 0.3% OPHTH SOLN 5 ML OD SCH ×4 (08:49→20:19)
[2019-04-05] MEDS: prednisoLONE ACET 1% OPHTH SUSP 5ML OD SCH ×4 (08:49→20:18)
--- NOTE | 2019-04-05 08:59 | IPN ---
DATE: 04/04/2019 74-year-old women with a history of hypertension, hypothyroidism, schizoaffective disorder who was admitted to the hospital with recent falls, found to have myositis of unclear etiology. She was transferred to acute rehabilitation unit (ARU) when stable for rehabilitation. She has been having a lot of paranoia, yelling out, agitation. Medications have been being adjusted. She is currently on Restoril to sleep, Seroquel 75 mg daily, Propranolol 10 mg by mouth 4 times a day, Ativan as needed, Elavil twice a day, Cymbalta twice a day. She is much more oriented today, less agitated. Much less calling out. Will continue to monitor closely. PHYSICAL EXAMINATION: Blood pressure 127/62, pulse 86, respirations 18, temperature 96.2, oxygen saturation 98% on room air. Patient was alert, oriented to place. She knew the year. Pupils equal and react to light. Pharynx, tongue, and gums pink and moist. Tongue is midline. Neck is supple, without lymphadenopathy. No thyromegaly. No goiter. Jugular venous pressure below the clavicle. Chest clear to auscultation, without wheeze or retraction. Heart is regular. Abdomen benign. Bowel sounds positive. /Rectal: Not done. Extremities: No cyanosis, clubbing or edema. Peripheral pulses equal and palpable bilaterally. Skin is warm and dry. IMPRESSION: Frequent falls with weakness and muscle aches: Continue physical therapy (PT), occupational therapy (OT) and treatment for rehabilitation. Myositis, history of elevated CK with weakness and myalgias. Can have definitive diagnosis as outpatient workup. Hypertension: Improved. Continue nicotine patch. Schizoaffective disorder with agitation: Continue current medications as ordered. Continue close monitoring. Patient does seem to be improving. Pain: Continue capsaicin, Bengay, Elavil. Chronic obstructive pulmonary disease (COPD): Continue DuoNebs. No shortness of breath. Chest is clear to auscultation. GERD: Continue omeprazole Constipation: Medications as ordered as needed. Deep venous thrombosis prophylaxis with Lovenox. MTDD
[2019-04-05] MEDS: QUEtiapine FUMARATE 25 MG TAB PO PRN (12:07)
[2019-04-05 14:00] VITALS: BP 118/68
[2019-04-05 19:47] VITALS: BP 157/78
[2019-04-05] MEDS: SENNA 8.6 MG TAB (SENOKOT) PO SCH (20:17)
[2019-04-05] MEDS: oxyBUTYnin *DITROPAN XL* 5 MG TABCR PO SCH (20:17)
[2019-04-05] MEDS: ATORVASTATIN 20 MG TAB PO SCH (20:17)
[2019-04-05] MEDS: TEMAZEPAM 15 MG CAP PO SCH (20:17)
[2019-04-05] MEDS: DIVALPROEX 500 MG TAB PO SCH (20:17)
[2019-04-05] MEDS: TIMOLOL MALEATE 0.5% OPHTH SOLN 5 ML OU SCH (20:18)
[2019-04-05] MEDS: QUEtiapine FUMARATE 25 MG TAB PO SCH (20:18)
[2019-04-05] MEDS: LATANOPROST 0.005% OPHTH SOLN 2.5 ML OU SCH (20:19)
[2019-04-05] MEDS: **NOTE PATIENT COMMENT** MISC XX SCH (20:24)
[2019-04-06] MEDS: PROPRANOLOL 10 MG TAB PO SCH ×4 (01:00→20:37)
[2019-04-06 06:30] VITALS: BP 157/73
[2019-04-06] MEDS: IPRATROPIUM 0.5MG/ALBUTEROL 2.5MG INH SOL UD 3ML (DUONEB)(J7620) NEB SCH ×3 (07:32→19:55)
[2019-04-06] MEDS: TIOTROPIUM INHALER/CAPSULE (SPIRIVA) INH SCH (07:33)
[2019-04-06] MEDS: NICOTINE 7 MG/24 HR TRANSDERMAL TD SCH (08:12)
[2019-04-06] MEDS: DULoxetine 30 MG CAP (CYMBALTA) PO SCH ×2 (08:12→20:41)
[2019-04-06] MEDS: predniSONE 1 MG TAB PO SCH (08:12)
[2019-04-06] MEDS: ASPIRIN 81 MG CHEW TABLET PO SCH (08:12)
[2019-04-06] MEDS: guaiFENesin 200 MG TAB PO SCH ×3 (08:12→20:38)
[2019-04-06] MEDS: amLODIPine 10 MG TAB PO SCH (08:13)
[2019-04-06] MEDS: ANALGESIC BALM CRM 120 GM TOP SCH ×2 (08:15→20:42)
[2019-04-06] MEDS: ENOXAPARIN 30 MG/0.3 ML SYR (J1650) SC SCH (08:16)
[2019-04-06] MEDS: OMEPRAZOLE 20 MG CAP PO SCH (08:19)
[2019-04-06] MEDS: DOCUSATE SODIUM 100 MG CAP PO SCH ×2 (08:19→20:37)
[2019-04-06] MEDS: LIDOCAINE 5% (LIDODERM) PATCH TD SCH (08:19)
[2019-04-06] MEDS: MAGNESIUM OXIDE 400 MG TAB (MAG-OX) PO SCH (08:22)
[2019-04-06] MEDS: AMITRIPTYLINE 25 MG TAB PO SCH ×2 (08:23→20:41)
[2019-04-06] MEDS: KETOROLAC 0.5% OPHTH SOLN OD SCH ×4 (08:23→20:42)
[2019-04-06] MEDS: TOBRAMYCIN 0.3% OPHTH SOLN 5 ML OD SCH ×4 (08:24→20:42)
[2019-04-06] MEDS: prednisoLONE ACET 1% OPHTH SUSP 5ML OD SCH ×4 (08:24→20:42)
[2019-04-06] MEDS: QUEtiapine FUMARATE 25 MG TAB PO PRN ×2 (11:04→18:16)
[2019-04-06 14:00] VITALS: BP 118/82
[2019-04-06] MEDS ORDERED: HALOPERIDOL 5 MG TAB PO STA (18:41)
[2019-04-06] MEDS ORDERED: HALOPERIDOL 5 MG TAB PO ONE (18:45)
--- NOTE | 2019-04-06 18:55 | IPNPDOC ---
Text Note Date of Service The patient was seen on 04/06/19. NOTE Subjective: Today patient has been agitated, yelling on nurses, patient stated that she doesn't get appropriate treatment and she wants to be discharged. Physical Examination General Exam: In severe distress Patient didn't let me do physical examination Assessment/Plan 74 year-old woman with a history of HTN, hypothyroidism, schizoaffective disorder who was admitted into the hospital with frequent falls and found to have myositis of unclear etiology at this time, now in ARU for rehabilitation. Delirium vs acute psychosis I talked to Dr. Hanks she recommended Haldol 5 mg by mouth I discontinued benzos and anticholinergic medication Frequent falls with associated weakness and muscle aches -in ARU receiving PT to improve gait, endurance, maintain ROM/strength/stretch bildeysi BUSTILLOS, per ARU physician Myositis: -Elevated CK with diffuse weakness and myalgias, will need outpatient work up for definitive diagnosis HTN: -Continue antihypertensive medication Smoking: -On nicotine patch 7mg/24h Schizoaffective disorder: Continue psych medication - Continue to monitor EKG for QTc prolongation MSK pain complaints: -Topical capsaicin BID -Bengay for left shoulder BID -Elavil 25 BID COPD -Robitussin for cough -duonebs TID GERD: -Omeprazole 20 Constipation: -dulcolax suppository PRN -colace BID -Mag oxide 400 QD -Senna QHS DVT prophylasix: Lovenox Dispo: per ARU VS,Fishbone, I+O VS, Fishbone, I+O Vital Signs Date Time Temp Pulse Resp B/P (MAP) Pulse Ox O2 Delivery O2 Flow Rate FiO2 04/06/19 16:30 72 118/82 04/06/19 14:00 96.8 18 95 I&O- Last 24 Hours up to 6 AM 04/06/19 06:00 Intake Total 1040 ml Output Total 0 ml Balance 1040 ml MARIPOSA SOTO DO Apr 06, 2019 18:55
[2019-04-06 20:00] VITALS: BP 102/56
[2019-04-06] MEDS: SENNA 8.6 MG TAB (SENOKOT) PO SCH (20:38)
[2019-04-06] MEDS: DIVALPROEX 500 MG TAB PO SCH (20:41)
[2019-04-06] MEDS: ATORVASTATIN 20 MG TAB PO SCH (20:41)
[2019-04-06] MEDS: TIMOLOL MALEATE 0.5% OPHTH SOLN 5 ML OU SCH (20:42)
[2019-04-06] MEDS: QUEtiapine FUMARATE 25 MG TAB PO SCH (20:42)
[2019-04-06] MEDS: LATANOPROST 0.005% OPHTH SOLN 2.5 ML OU SCH (20:42)
[2019-04-06] MEDS: **NOTE PATIENT COMMENT** MISC XX SCH (20:43)
[2019-04-07 00:34] VITALS: BP 127/58
[2019-04-07] MEDS: PROPRANOLOL 10 MG TAB PO SCH ×5 (00:35→20:40)
[2019-04-07 06:00] VITALS: BP 136/65
[2019-04-07] MEDS: IPRATROPIUM 0.5MG/ALBUTEROL 2.5MG INH SOL UD 3ML (DUONEB)(J7620) NEB SCH ×3 (07:44→20:00)
[2019-04-07] MEDS: TIOTROPIUM INHALER/CAPSULE (SPIRIVA) INH SCH (07:44)
[2019-04-07] MEDS: TOBRAMYCIN 0.3% OPHTH SOLN 5 ML OD SCH ×4 (09:00→20:42)
[2019-04-07] MEDS: predniSONE 1 MG TAB PO SCH ×3 (09:00→13:26)
[2019-04-07] MEDS: KETOROLAC 0.5% OPHTH SOLN OD SCH ×4 (09:00→20:41)
[2019-04-07] MEDS: OMEPRAZOLE 20 MG CAP PO SCH ×2 (09:00→09:06)
[2019-04-07] MEDS: AMITRIPTYLINE 25 MG TAB PO SCH ×2 (09:00→20:41)
[2019-04-07] MEDS: DOCUSATE SODIUM 100 MG CAP PO SCH ×2 (09:00→21:00)
[2019-04-07] MEDS: amLODIPine 10 MG TAB PO SCH ×3 (09:00→13:26)
[2019-04-07] MEDS: NICOTINE 7 MG/24 HR TRANSDERMAL TD SCH (09:00)
[2019-04-07] MEDS: prednisoLONE ACET 1% OPHTH SUSP 5ML OD SCH ×4 (09:00→20:42)
[2019-04-07] MEDS: MAGNESIUM OXIDE 400 MG TAB (MAG-OX) PO SCH ×3 (09:00→13:26)
[2019-04-07] MEDS: DULoxetine 30 MG CAP (CYMBALTA) PO SCH ×4 (09:00→20:40)
[2019-04-07] MEDS: ENOXAPARIN 30 MG/0.3 ML SYR (J1650) SC SCH ×2 (09:00→09:07)
[2019-04-07] MEDS: ANALGESIC BALM CRM 120 GM TOP SCH ×2 (09:00→20:42)
[2019-04-07] MEDS: ASPIRIN 81 MG CHEW TABLET PO SCH ×3 (09:00→13:26)
[2019-04-07] MEDS: guaiFENesin 200 MG TAB PO SCH ×5 (09:00→20:41)
[2019-04-07] MEDS: LIDOCAINE 5% (LIDODERM) PATCH TD SCH (09:07)
[2019-04-07 14:00] VITALS: BP 142/71
--- NOTE | 2019-04-07 16:05 | IPNPDOC ---
PM&R Progress Note DATE OF SERVICE: Apr 03, 2019 Machine Try Out Setter Progress Note Subjective: Patient seen in her room stating she does not feel like getting out of bed, but understands she has to participate in therapy in order to return to the [facility]. REVIEW OF SYSTEMS: The following is a completed review of systems and has been reviewed. Review of systems otherwise unremarkable. PAIN: Patient self reports burning arm and leg pain EYES: No recent vision changes EARS, NOSE, & THROAT: No throat pain, or dysphagia, or rhinorrhea CARDIOVASCULAR: Denies chest pain or palpitations PULMONARY: Denies shortness of breath, + cough GASTROINTESTINAL: +constipation (improving) GENITOURINARY: +dysuria MUSCULOSKELETAL:weakness NEUROLOGICAL:myositis HEMATOLOGICAL: no easy bruising SKIN: left hip ecchymosis PSYCHIATRIC: +schizoaffective disorder All other review of systems found to be negative. PHYSICAL EXAMINATION: VITAL SIGNS: Please see below. GENERAL: Pleasant and cooperative. No acute distress. HEENT: PERRL. Extraocular movements intact. Clear conjunctiva CARDIOVASCULAR: Regular rate and rhythm. No murmurs, rubs, or gallops. LUNGS: Clear to auscultation bilaterally. No wheezes. No rhonchi ABDOMEN: Soft, nontender, nondistended. Positive bowel sounds. Normal active bowel sounds NEUROLOGICAL: Alert and oriented times three. Cranial nerves II through XII grossly intact. Sensation grossly intact +akathisias EXTREMITIES: 4\5 strength bilateral upper extremities. 4\5 strength right lower extremity.4/5 strength in left lower extremity. (+) restricted left shoulder on internal and external rotation SKIN: left hip bruise ASSESSMENT:74 year-old F with past medical history of Hypothyroidism, HTN, schizoaffective disorder who presents status post falls in setting of myositis. PLAN: 1. Rehab: PT- improve gait, endurance, maintain ROM/strength/stretch bilat LE, ambulating with RW well OT advance ADL management SENSORY SCIENTIST for cognition 2. neuro: patient with new diagnosis of myositis, etiology unknown resulting in diffuse weakness and difficulty with mobility- will need outpatient neuro work- up 3. CArdiac: HTN c/u home meds medicine consulted to assist in management, monitoring QTC while on Seroquel 4. Resp: hx smoker, with productive cough will start guaifenesin, c/u breathing treatments 5. Psych: hx of schizoaffective disorder with episodes of delirium and agitation at night -increase Seroquel to 75mg qHS, c/u Seroquel 25mg q6h agitation, staff encouraged to gently redirect patient at night and help her get to the bathroom in a timely manner as this has been adding to her agitation in the evening, may use Ativan as a last resort if patient's behavior continues to escalate -c/u low dose Propanol for agitation also ordered overnight -c/u Restoril 15mg qHS for insomnia -d/c'd trazodone for insomnia as poor interaction with Seroquel 6. GI ppx: protonix 7. DVT ppx: lovenox 8. : reporting dysuria, UA + wbc, started on keflex, Ucx negative, patient still reporting dysuria, s/p course of Kefflex, s/p one time dose Diflucan 04/01/19 -c/u oxybutynin 5mg qHS (patient on Myrbetriq at home) 9. Pain: left shoulder OA, maintain ROM, c/u menthol salicylate, will trial lidoderm patch to left shoulder -c/u Elavil dosing to 25mg BID, and continue Cymbalta at lower dose of 30mg BID to avoid avoid serotonin syndrome and anticholinergic effects -c/u low dose prednisone 2mg daily for myositis, will consider increasing to 5mg daily when overnight psychotic episodes improve 9. Dispo: tbd Allergies Coded Allergies: morphine (Verified Allergy, Severe, 'I almost ', 12/19/18) acetaminophen (Verified Allergy, Unknown, unknown, 12/19/18) naproxen (Verified Allergy, Unknown, unknown, 12/19/18) TAKES IBUPROFEN AND ASPIRIN AT HOME oxycodone (Unverified Allergy, Unknown, unknown, 12/19/18) propoxyphene (Verified Allergy, Unknown, unknown, 12/19/18) tetanus toxoid, adsorbed (Verified Allergy, Unknown, unknown, 12/19/18) thiothixene (Verified Adverse Reaction, Intermediate, EPS, 12/19/18) hydrocodone (Verified Adverse Reaction, Mild, 'I fall', 12/19/18) hydroxyzine (Verified Adverse Reaction, Mild, vomits, 12/19/18) Vital Signs Vital Signs Date Time Temp Pulse Resp B/P (MAP) Pulse Ox O2 Delivery O2 Flow Rate FiO2 04/07/19 06:00 97.8 67 18 136/65 (88) 95 Microbiology Microbiology 03/29/19 Urine Culture - Final, Complete Current Medications Current Medications Current Medications Medications (Trade) Dose Ordered Sig/Juana Route PRN Reason Start Time Stop Time Status Last Admin Dose Admin Albuterol/ Ipratropium (Duoneb (Ipr 0.5mg/Alb 2.5mg)) 3 ml Q4HP PRN NEB SOB/WHEEZING 03/27/19 14:00 03/27/19 15:16 DC Albuterol/ Ipratropium (Duoneb (Ipr 0.5mg/Alb 2.5mg)) 3 ml RTID NEB 04/01/19 14:00 04/06/19 19:55 Albuterol/ Ipratropium (Duoneb (Ipr 0.5mg/Alb 2.5mg)) 3 ml TID NEB 03/27/19 16:00 04/01/19 14:04 DC 03/31/19 08:03 Amitriptyline HCl (Elavil) 25 mg BID PO 03/27/19 21:00 04/01/19 12:11 DC 04/01/19 08:27 Amitriptyline HCl (Elavil) 25 mg BID PO 04/02/19 21:00 04/06/19 20:41 Amitriptyline HCl (Elavil) 50 mg BID PO 04/01/19 21:00 04/02/19 10:21 DC 04/02/19 08:53 Amlodipine Besylate (Norvasc) 7.5 mg DAILY PO 03/28/19 09:00 03/28/19 15:09 DC 03/28/19 08:30 Amlodipine Besylate (Norvasc) 10 mg DAILY PO 03/29/19 09:00 04/07/19 13:26 Aspirin (Aspirin Chewable) 81 mg DAILY PO 03/28/19 09:00 04/07/19 13:26 Atorvastatin Calcium (Lipitor) 20 mg QHS PO 03/27/19 21:00 04/06/19 20:41 Bisacodyl (Dulcolax Suppository) 10 mg DAILYPRN PRN NM CONSTIPATION 03/27/19 12:45 Capsaicin (Zostrix 0.025%) arms and legs BID TOP 03/27/19 21:00 03/29/19 21:08 DC 03/29/19 20:03 Cephalexin Monohydrate (Keflex) 500 mg BID PO 03/29/19 15:00 04/03/19 15:00 DC 04/03/19 09:31 Divalproex Sodium (Depakote) 1,000 mg QHS PO 03/27/19 21:00 04/06/19 20:41 Docusate Sodium (Colace) 100 mg BID PO 03/27/19 09:00 04/05/19 20:17 Duloxetine HCl (Cymbalta) 30 mg BID PO 04/02/19 09:00 04/07/19 13:23 Duloxetine HCl (Cymbalta) 90 mg DAILY PO 03/28/19 09:00 04/01/19 12:11 DC 04/01/19 08:27 Enoxaparin Sodium (Lovenox) 30 mg DAILY SC 03/28/19 09:00 04/04/19 08:52 Guaifenesin (Robitussin Tab) 400 mg TID PO 03/27/19 16:00 04/07/19 13:24 Haloperidol (Haldol) 1 mg Q4HP PRN IM AGITATION 04/02/19 02:30 04/02/19 02:45 DC 04/02/19 02:42 Haloperidol (Haldol) 5 mg STAT STAT PO 04/06/19 18:41 04/06/19 18:48 DC Home Med (Med Rec Complete!) ASDIRECTED XX 03/27/19 14:45 03/27/19 14:54 DC Ibuprofen (Advil) 400 mg Q8HP PRN PO PAIN 03/28/19 08:45 04/01/19 12:11 DC 04/01/19 08:25 Ketorolac Tromethamine (Acular 0.5%) 1 drop QID OD 03/27/19 17:00 04/07/19 13:17 Latanoprost (Xalatan 0.005% Op Soln) 1 drop QHS OU 03/27/19 21:00 04/06/19 20:42 Lidocaine (Lidoderm Patch) 1 patch DAILY TD 04/01/19 09:00 04/07/19 09:07 Lorazepam (Ativan) 0.25 mg Q4HP PRN PO agitated 04/03/19 10:00 04/06/19 18:41 DC Lorazepam (Ativan) 1 mg Q4HP PRN IM AGITATION 04/02/19 10:30 04/03/19 09:49 DC Magnesium Oxide (Mag-Ox) 400 mg DAILY PO 03/28/19 09:00 04/07/19 13:26 Menthol/Methyl Salicylate (Bengay Cream) left shoulder BID TOP 03/27/19 21:00 04/04/19 08:53 Nicotine (Nicoderm Cq 7 Mg) 1 patch DAILY TD 03/28/19 09:00 04/06/19 08:12 Non-Formulary Medication ( See Comment Field Below ) REMOVE LIDODERM PATCH DAILY@21 XX 04/01/19 21:00 04/06/19 20:43 Omeprazole (PriLOSEC) 20 mg DAILY PO 03/28/19 09:00 04/06/19 08:19 Oxybutynin Chloride (Ditropan Xl) 5 mg QHS PO 04/02/19 21:00 04/06/19 18:41 DC 04/05/19 20:17 Patient Own Medication (Patient'S Own Med) 50mg = 1 tablet DAILY PO 03/28/19 09:00 04/07/19 13:27 Phenazopyridine HCl (Pyridium) 200 mg BID PO 03/29/19 15:00 03/30/19 21:00 DC 03/30/19 20:43 Prednisolone Acetate (Predforte 1% Ophth Susp) 2 drop QID OD 03/27/19 17:00 04/07/19 13:17 Prednisone (Deltasone) 2 mg DAILY PO 04/01/19 09:00 04/07/19 13:26 Propranolol HCl (Inderal) 5 mg 0100,0500,1700,2100 PO 04/02/19 17:00 04/03/19 09:49 DC 04/03/19 05:47 Propranolol HCl (Inderal) 10 mg 0100,0500,1700,2100 PO 04/03/19 17:00 04/07/19 05:25 Quetiapine Fumarate (SEROquel) 12.5 mg BID PO 03/27/19 21:00 03/30/19 07:49 DC 03/29/19 20:00 Quetiapine Fumarate (SEROquel) 12.5 mg BID PO 04/01/19 21:00 04/02/19 10:08 DC 04/01/19 20:29 Quetiapine Fumarate (SEROquel) 12.5 mg Q8HP PRN PO ANXIETY/AGITATION 03/31/19 17:30 04/02/19 10:11 DC 04/02/19 03:49 Quetiapine Fumarate (SEROquel) 25 mg BID PO 03/30/19 09:00 04/01/19 12:11 DC 04/01/19 08:28 Quetiapine Fumarate (SEROquel) 25 mg Q6H PRN PO ANXIETY/AGITATION 04/02/19 16:45 04/06/19 18:16 Quetiapine Fumarate (SEROquel) 25 mg TID PRN PO ANXIETY/AGITATION 04/02/19 13:00 04/02/19 16:50 DC Quetiapine Fumarate (SEROquel) 50 mg QHS PO 04/02/19 21:00 04/03/19 09:51 DC 04/02/19 21:21 Quetiapine Fumarate (SEROquel) 75 mg QHS PO 04/03/19 21:00 04/06/19 20:42 Senna (Senokot) 1 tab QHS PO 03/27/19 21:00 04/05/19 20:17 Temazepam (Restoril) 7.5 mg QHSP PRN PO INSOMNIA 04/03/19 21:00 04/06/19 18:41 DC 04/04/19 00:37 Temazepam (Restoril) 15 mg DAILY@2300 PRN PO SLEEP 04/02/19 23:00 04/03/19 09:49 DC Temazepam (Restoril) 15 mg QHS PO 04/03/19 21:00 04/06/19 18:41 DC 04/05/19 20:17 Temazepam (Restoril) 15 mg QHS PO 04/07/19 21:00 Timolol Maleate (Timoptic 0.5% Ophth Kourtney) 1 drop QHS OU 03/27/19 21:00 04/06/19 20:42 Tiotropium [place] (Spiriva Handihaler) 1 inhalation DAILY@08 INH 03/28/19 08:00 03/31/19 08:03 Tobramycin Sulfate (Tobrex 0.3% Ophth Kourtney) 2 drop QID OD 03/27/19 17:00 04/07/19 13:17 Trazodone HCl (Desyrel) 150 mg QHSP PRN PO INSOMNIA 03/27/19 21:00 04/01/19 12:11 DC 03/31/19 21:32 Zolpidem Tartrate (Ambien) 5 mg QHSP PRN PO INSOMNIA 04/01/19 12:15 04/02/19 10:08 DC 04/02/19 00:53 AZRA SOUTH MD Apr 07, 2019 16:05
[2019-04-07] MEDS: QUEtiapine FUMARATE 25 MG TAB PO PRN (16:10)
--- NOTE | 2019-04-07 16:17 | IPNPDOC ---
PM&R Progress Note DATE OF SERVICE: Apr 04, 2019 Boat Master Progress Note Subjective: Staff reporting patient slept better last night. She is requesting pudding often and reports she misses her daughter. She states her burning pain today is a little better. REVIEW OF SYSTEMS: The following is a completed review of systems and has been reviewed. Review of systems otherwise unremarkable. PAIN: Patient self reports burning arm and leg pain EYES: No recent vision changes EARS, NOSE, & THROAT: No throat pain, or dysphagia, or rhinorrhea CARDIOVASCULAR: Denies chest pain or palpitations PULMONARY: Denies shortness of breath, + cough (improving) GASTROINTESTINAL: +constipation (improving) GENITOURINARY: +dysuria MUSCULOSKELETAL:weakness NEUROLOGICAL:myositis HEMATOLOGICAL: no easy bruising SKIN: left hip ecchymosis PSYCHIATRIC: +schizoaffective disorder All other review of systems found to be negative. PHYSICAL EXAMINATION: VITAL SIGNS: Please see below. GENERAL: Pleasant and cooperative. No acute distress. HEENT: PERRL. Extraocular movements intact. Clear conjunctiva CARDIOVASCULAR: Regular rate and rhythm. No murmurs, rubs, or gallops. LUNGS: Clear to auscultation bilaterally. No wheezes. No rhonchi ABDOMEN: Soft, nontender, nondistended. Positive bowel sounds. Normal active bowel sounds NEUROLOGICAL: Alert and oriented times three. Cranial nerves II through XII grossly intact. Sensation grossly intact +akathisias EXTREMITIES: 4\5 strength bilateral upper extremities. 4\5 strength right lower extremity.4/5 strength in left lower extremity. (+) restricted left shoulder on internal and external rotation SKIN: left hip bruise ASSESSMENT:74 year-old F with past medical history of Hypothyroidism, HTN, schizoaffective disorder who presents status post falls in setting of myositis. PLAN: 1. Rehab: PT- improve gait, endurance, maintain ROM/strength/stretch bilat LE, ambulating with RW well OT advance ADL management CORPORATE STRATEGY ANALYST for cognition 2. neuro: patient with new diagnosis of myositis, etiology unknown resulting in diffuse weakness and difficulty with mobility- will need outpatient neuro work- up 3. CArdiac: HTN c/u home meds medicine consulted to assist in management, monitoring QTC while on Seroquel 4. Resp: hx smoker, with productive cough will start guaifenesin, c/u breathing treatments 5. Psych: hx of schizoaffective disorder with episodes of delirium and agitation at night -c/u Seroquel to 75mg qHS, c/u Seroquel 25mg q6h agitation, staff encouraged to gently redirect patient at night and help her get to the bathroom in a timely manner as this has been adding to her agitation in the evening, may use Ativan as a last resort if patient's behavior continues to escalate -c/u low dose Propanol for agitation also ordered overnight -c/u Restoril 15mg qHS for insomnia -d/c'd trazodone for insomnia as poor interaction with Seroquel 6. GI ppx: protonix 7. DVT ppx: lovenox 8. : reporting dysuria, UA + wbc, started on keflex, Ucx negative, patient still reporting dysuria, s/p course of Kefflex, s/p one time dose Diflucan 04/01/19 -c/u oxybutynin 5mg qHS (patient on Myrbetriq at home) 9. Pain: left shoulder OA, maintain ROM, c/u menthol salicylate, will trial lidoderm patch to left shoulder -c/u Elavil dosing to 25mg BID, and continue Cymbalta at lower dose of 30mg BID to avoid avoid serotonin syndrome and anticholinergic effects -c/u low dose prednisone 2mg daily for myositis, will consider increasing to 5mg daily when overnight psychotic episodes improve 9. Dispo: tbd Allergies Coded Allergies: morphine (Verified Allergy, Severe, 'I almost ', 12/19/18) acetaminophen (Verified Allergy, Unknown, unknown, 12/19/18) naproxen (Verified Allergy, Unknown, unknown, 12/19/18) TAKES IBUPROFEN AND ASPIRIN AT HOME oxycodone (Unverified Allergy, Unknown, unknown, 12/19/18) propoxyphene (Verified Allergy, Unknown, unknown, 12/19/18) tetanus toxoid, adsorbed (Verified Allergy, Unknown, unknown, 12/19/18) thiothixene (Verified Adverse Reaction, Intermediate, EPS, 12/19/18) hydrocodone (Verified Adverse Reaction, Mild, 'I fall', 12/19/18) hydroxyzine (Verified Adverse Reaction, Mild, vomits, 12/19/18) Vital Signs Vital Signs Date Time Temp Pulse Resp B/P (MAP) Pulse Ox O2 Delivery O2 Flow Rate FiO2 04/07/19 06:00 97.8 67 18 136/65 (88) 95 Microbiology Microbiology 03/29/19 Urine Culture - Final, Complete Current Medications Current Medications Current Medications Medications (Trade) Dose Ordered Sig/Juana Route PRN Reason Start Time Stop Time Status Last Admin Dose Admin Albuterol/ Ipratropium (Duoneb (Ipr 0.5mg/Alb 2.5mg)) 3 ml Q4HP PRN NEB SOB/WHEEZING 03/27/19 14:00 03/27/19 15:16 DC Albuterol/ Ipratropium (Duoneb (Ipr 0.5mg/Alb 2.5mg)) 3 ml RTID NEB 04/01/19 14:00 04/06/19 19:55 Albuterol/ Ipratropium (Duoneb (Ipr 0.5mg/Alb 2.5mg)) 3 ml TID NEB 03/27/19 16:00 04/01/19 14:04 DC 03/31/19 08:03 Amitriptyline HCl (Elavil) 25 mg BID PO 03/27/19 21:00 04/01/19 12:11 DC 04/01/19 08:27 Amitriptyline HCl (Elavil) 25 mg BID PO 04/02/19 21:00 04/06/19 20:41 Amitriptyline HCl (Elavil) 50 mg BID PO 04/01/19 21:00 04/02/19 10:21 DC 04/02/19 08:53 Amlodipine Besylate (Norvasc) 7.5 mg DAILY PO 03/28/19 09:00 03/28/19 15:09 DC 03/28/19 08:30 Amlodipine Besylate (Norvasc) 10 mg DAILY PO 03/29/19 09:00 04/07/19 13:26 Aspirin (Aspirin Chewable) 81 mg DAILY PO 03/28/19 09:00 04/07/19 13:26 Atorvastatin Calcium (Lipitor) 20 mg QHS PO 03/27/19 21:00 04/06/19 20:41 Bisacodyl (Dulcolax Suppository) 10 mg DAILYPRN PRN NM CONSTIPATION 03/27/19 12:45 Capsaicin (Zostrix 0.025%) arms and legs BID TOP 03/27/19 21:00 03/29/19 21:08 DC 03/29/19 20:03 Cephalexin Monohydrate (Keflex) 500 mg BID PO 03/29/19 15:00 04/03/19 15:00 DC 04/03/19 09:31 Divalproex Sodium (Depakote) 1,000 mg QHS PO 03/27/19 21:00 04/06/19 20:41 Docusate Sodium (Colace) 100 mg BID PO 03/27/19 09:00 04/05/19 20:17 Duloxetine HCl (Cymbalta) 30 mg BID PO 04/02/19 09:00 04/07/19 13:23 Duloxetine HCl (Cymbalta) 90 mg DAILY PO 03/28/19 09:00 04/01/19 12:11 DC 04/01/19 08:27 Enoxaparin Sodium (Lovenox) 30 mg DAILY SC 03/28/19 09:00 04/04/19 08:52 Guaifenesin (Robitussin Tab) 400 mg TID PO 03/27/19 16:00 04/07/19 13:24 Haloperidol (Haldol) 1 mg Q4HP PRN IM AGITATION 04/02/19 02:30 04/02/19 02:45 DC 04/02/19 02:42 Haloperidol (Haldol) 5 mg STAT STAT PO 04/06/19 18:41 04/06/19 18:48 DC Home Med (Med Rec Complete!) ASDIRECTED XX 03/27/19 14:45 03/27/19 14:54 DC Ibuprofen (Advil) 400 mg Q8HP PRN PO PAIN 03/28/19 08:45 04/01/19 12:11 DC 04/01/19 08:25 Ketorolac Tromethamine (Acular 0.5%) 1 drop QID OD 03/27/19 17:00 04/07/19 13:17 Latanoprost (Xalatan 0.005% Op Soln) 1 drop QHS OU 03/27/19 21:00 04/06/19 20:42 Lidocaine (Lidoderm Patch) 1 patch DAILY TD 04/01/19 09:00 04/07/19 09:07 Lorazepam (Ativan) 0.25 mg Q4HP PRN PO agitated 04/03/19 10:00 04/06/19 18:41 DC Lorazepam (Ativan) 1 mg Q4HP PRN IM AGITATION 04/02/19 10:30 04/03/19 09:49 DC Magnesium Oxide (Mag-Ox) 400 mg DAILY PO 03/28/19 09:00 04/07/19 13:26 Menthol/Methyl Salicylate (Bengay Cream) left shoulder BID TOP 03/27/19 21:00 04/04/19 08:53 Nicotine (Nicoderm Cq 7 Mg) 1 patch DAILY TD 03/28/19 09:00 04/06/19 08:12 Non-Formulary Medication ( See Comment Field Below ) REMOVE LIDODERM PATCH DAILY@21 XX 04/01/19 21:00 04/06/19 20:43 Omeprazole (PriLOSEC) 20 mg DAILY PO 03/28/19 09:00 04/06/19 08:19 Oxybutynin Chloride (Ditropan Xl) 5 mg QHS PO 04/02/19 21:00 04/06/19 18:41 DC 04/05/19 20:17 Patient Own Medication (Patient'S Own Med) 50mg = 1 tablet DAILY PO 03/28/19 09:00 04/07/19 13:27 Phenazopyridine HCl (Pyridium) 200 mg BID PO 03/29/19 15:00 03/30/19 21:00 DC 03/30/19 20:43 Prednisolone Acetate (Predforte 1% Ophth Susp) 2 drop QID OD 03/27/19 17:00 04/07/19 13:17 Prednisone (Deltasone) 2 mg DAILY PO 04/01/19 09:00 04/07/19 13:26 Propranolol HCl (Inderal) 5 mg 0100,0500,1700,2100 PO 04/02/19 17:00 04/03/19 09:49 DC 04/03/19 05:47 Propranolol HCl (Inderal) 10 mg 0100,0500,1700,2100 PO 04/03/19 17:00 04/07/19 05:25 Quetiapine Fumarate (SEROquel) 12.5 mg BID PO 03/27/19 21:00 03/30/19 07:49 DC 03/29/19 20:00 Quetiapine Fumarate (SEROquel) 12.5 mg BID PO 04/01/19 21:00 04/02/19 10:08 DC 04/01/19 20:29 Quetiapine Fumarate (SEROquel) 12.5 mg Q8HP PRN PO ANXIETY/AGITATION 03/31/19 17:30 04/02/19 10:11 DC 04/02/19 03:49 Quetiapine Fumarate (SEROquel) 25 mg BID PO 03/30/19 09:00 04/01/19 12:11 DC 04/01/19 08:28 Quetiapine Fumarate (SEROquel) 25 mg Q6H PRN PO ANXIETY/AGITATION 04/02/19 16:45 04/06/19 18:16 Quetiapine Fumarate (SEROquel) 25 mg TID PRN PO ANXIETY/AGITATION 04/02/19 13:00 04/02/19 16:50 DC Quetiapine Fumarate (SEROquel) 50 mg QHS PO 04/02/19 21:00 04/03/19 09:51 DC 04/02/19 21:21 Quetiapine Fumarate (SEROquel) 75 mg QHS PO 04/03/19 21:00 04/06/19 20:42 Senna (Senokot) 1 tab QHS PO 03/27/19 21:00 04/05/19 20:17 Temazepam (Restoril) 7.5 mg QHSP PRN PO INSOMNIA 04/03/19 21:00 04/06/19 18:41 DC 04/04/19 00:37 Temazepam (Restoril) 15 mg DAILY@2300 PRN PO SLEEP 04/02/19 23:00 04/03/19 09:49 DC Temazepam (Restoril) 15 mg QHS PO 04/03/19 21:00 04/06/19 18:41 DC 04/05/19 20:17 Temazepam (Restoril) 15 mg QHS PO 04/07/19 21:00 Timolol Maleate (Timoptic 0.5% Ophth Kourtney) 1 drop QHS OU 03/27/19 21:00 04/06/19 20:42 Tiotropium [place] (Spiriva Handihaler) 1 inhalation DAILY@08 INH 03/28/19 08:00 03/31/19 08:03 Tobramycin Sulfate (Tobrex 0.3% Ophth Kourtney) 2 drop QID OD 03/27/19 17:00 04/07/19 13:17 Trazodone HCl (Desyrel) 150 mg QHSP PRN PO INSOMNIA 03/27/19 21:00 04/01/19 12:11 DC 03/31/19 21:32 Zolpidem Tartrate (Ambien) 5 mg QHSP PRN PO INSOMNIA 04/01/19 12:15 04/02/19 10:08 DC 04/02/19 00:53 AZRA SOUTH MD Apr 07, 2019 16:17
--- NOTE | 2019-04-07 16:18 | IPNPDOC ---
PM&R Progress Note DATE OF SERVICE: Apr 07, 2019 Video Production Intern Progress Note Subjective: Patient reports she is working on stairs and is wondering when she will return to the [facility]. REVIEW OF SYSTEMS: The following is a completed review of systems and has been reviewed. Review of systems otherwise unremarkable. PAIN: Patient self reports burning arm and leg pain EYES: No recent vision changes EARS, NOSE, & THROAT: No throat pain, or dysphagia, or rhinorrhea CARDIOVASCULAR: Denies chest pain or palpitations PULMONARY: Denies shortness of breath, + cough GASTROINTESTINAL: +constipation (improving) GENITOURINARY: +dysuria MUSCULOSKELETAL:weakness NEUROLOGICAL:myositis HEMATOLOGICAL: no easy bruising SKIN: left hip ecchymosis PSYCHIATRIC: +schizoaffective disorder All other review of systems found to be negative. PHYSICAL EXAMINATION: VITAL SIGNS: Please see below. GENERAL: Pleasant and cooperative. No acute distress. HEENT: PERRL. Extraocular movements intact. Clear conjunctiva CARDIOVASCULAR: Regular rate and rhythm. No murmurs, rubs, or gallops. LUNGS: Clear to auscultation bilaterally. No wheezes. No rhonchi ABDOMEN: Soft, nontender, nondistended. Positive bowel sounds. Normal active bowel sounds NEUROLOGICAL: Alert and oriented times three. Cranial nerves II through XII grossly intact. Sensation grossly intact +akathisias EXTREMITIES: 4\5 strength bilateral upper extremities. 4\5 strength right lower extremity.4/5 strength in left lower extremity. (+) restricted left shoulder on internal and external rotation SKIN: left hip bruise ASSESSMENT:74 year-old F with past medical history of Hypothyroidism, HTN, schizoaffective disorder who presents status post falls in setting of myositis. PLAN: 1. Rehab: PT- improve gait, endurance, maintain ROM/strength/stretch bilat LE, ambulating with RW well OT advance ADL management DOCUMENT REVIEW SPECIALIST for cognition 2. neuro: patient with new diagnosis of myositis, etiology unknown resulting in diffuse weakness and difficulty with mobility- will need outpatient neuro work- up 3. CArdiac: HTN c/u home meds medicine consulted to assist in management, m onitoring QTC while on Seroquel 4. Resp: hx smoker, with productive cough will start guaifenesin, c/u breathing treatments 5. Psych: hx of schizoaffective disorder with episodes of delirium and agitation at night -increase Seroquel to 75mg qHS, c/u Seroquel 25mg q6h agitation, staff encouraged to gently redirect patient at night and help her get to the bathroom in a timely manner as this has been adding to her agitation in the evening, may use Ativan as a last resort if patient's behavior continues to escalate -c/u low dose Propanol for agitation also ordered overnight -c/u Restoril 15mg qHS for insomnia -d/c'd trazodone for insomnia as poor interaction with Seroquel 6. GI ppx: protonix 7. DVT ppx: lovenox 8. : reporting dysuria, UA + wbc, started on keflex, Ucx negative, patient still reporting dysuria, s/p course of Kefflex, s/p one time dose Diflucan 04/01/19 -c/u Myrbetriq 9. Pain: left shoulder OA, maintain ROM, c/u menthol salicylate, will trial lidoderm patch to left shoulder -c/u Elavil dosing to 25mg BID, and continue Cymbalta at lower dose of 30mg BID to avoid avoid serotonin syndrome and anticholinergic effects -c/u low dose prednisone 2mg daily for myositis, will consider increasing to 5mg daily when overnight psychotic episodes improve 9. Dispo: tbd Allergies Coded Allergies: morphine (Verified Allergy, Severe, 'I almost ', 12/19/18) acetaminophen (Verified Allergy, Unknown, unknown, 12/19/18) naproxen (Verified Allergy, Unknown, unknown, 12/19/18) TAKES IBUPROFEN AND ASPIRIN AT HOME oxycodone (Unverified Allergy, Unknown, unknown, 12/19/18) propoxyphene (Verified Allergy, Unknown, unknown, 12/19/18) tetanus toxoid, adsorbed (Verified Allergy, Unknown, unknown, 12/19/18) thiothixene (Verified Adverse Reaction, Intermediate, EPS, 12/19/18) hydrocodone (Verified Adverse Reaction, Mild, 'I fall', 12/19/18) hydroxyzine (Verified Adverse Reaction, Mild, vomits, 12/19/18) Vital Signs Vital Signs Date Time Temp Pulse Resp B/P (MAP) Pulse Ox O2 Delivery O2 Flow Rate FiO2 04/07/19 06:00 97.8 67 18 136/65 (88) 95 Microbiology Microbiology 03/29/19 Urine Culture - Final, Complete Current Medications Current Medications Current Medications Medications (Trade) Dose Ordered Sig/Juana Route PRN Reason Start Time Stop Time Status Last Admin Dose Admin Albuterol/ Ipratropium (Duoneb (Ipr 0.5mg/Alb 2.5mg)) 3 ml Q4HP PRN NEB SOB/WHEEZING 03/27/19 14:00 03/27/19 15:16 DC Albuterol/ Ipratropium (Duoneb (Ipr 0.5mg/Alb 2.5mg)) 3 ml RTID NEB 04/01/19 14:00 04/06/19 19:55 Albuterol/ Ipratropium (Duoneb (Ipr 0.5mg/Alb 2.5mg)) 3 ml TID NEB 03/27/19 16:00 04/01/19 14:04 DC 03/31/19 08:03 Amitriptyline HCl (Elavil) 25 mg BID PO 03/27/19 21:00 04/01/19 12:11 DC 04/01/19 08:27 Amitriptyline HCl (Elavil) 25 mg BID PO 04/02/19 21:00 04/06/19 20:41 Amitriptyline HCl (Elavil) 50 mg BID PO 04/01/19 21:00 04/02/19 10:21 DC 04/02/19 08:53 Amlodipine Besylate (Norvasc) 7.5 mg DAILY PO 03/28/19 09:00 03/28/19 15:09 DC 03/28/19 08:30 Amlodipine Besylate (Norvasc) 10 mg DAILY PO 03/29/19 09:00 04/07/19 13:26 Aspirin (Aspirin Chewable) 81 mg DAILY PO 03/28/19 09:00 04/07/19 13:26 Atorvastatin Calcium (Lipitor) 20 mg QHS PO 03/27/19 21:00 04/06/19 20:41 Bisacodyl (Dulcolax Suppository) 10 mg DAILYPRN PRN [place] CONSTIPATION 03/27/19 12:45 Capsaicin (Zostrix 0.025%) arms and legs BID TOP 03/27/19 21:00 03/29/19 21:08 DC 03/29/19 20:03 Cephalexin Monohydrate (Keflex) 500 mg BID PO 03/29/19 15:00 04/03/19 15:00 DC 04/03/19 09:31 Divalproex Sodium (Depakote) 1,000 mg QHS PO 03/27/19 21:00 04/06/19 20:41 Docusate Sodium (Colace) 100 mg BID PO 03/27/19 09:00 04/05/19 20:17 Duloxetine HCl (Cymbalta) 30 mg BID PO 04/02/19 09:00 04/07/19 13:23 Duloxetine HCl (Cymbalta) 90 mg DAILY PO 03/28/19 09:00 04/01/19 12:11 DC 04/01/19 08:27 Enoxaparin Sodium (Lovenox) 30 mg DAILY SC 03/28/19 09:00 04/04/19 08:52 Guaifenesin (Robitussin Tab) 400 mg TID PO 03/27/19 16:00 04/07/19 13:24 Haloperidol (Haldol) 1 mg Q4HP PRN IM AGITATION 04/02/19 02:30 04/02/19 02:45 DC 04/02/19 02:42 Haloperidol (Haldol) 5 mg STAT STAT PO 04/06/19 18:41 04/06/19 18:48 DC Home Med (Med Rec Complete!) ASDIRECTED XX 03/27/19 14:45 03/27/19 14:54 DC Ibuprofen (Advil) 400 mg Q8HP PRN PO PAIN 03/28/19 08:45 04/01/19 12:11 DC 04/01/19 08:25 Ketorolac Tromethamine (Acular 0.5%) 1 drop QID OD 03/27/19 17:00 04/07/19 13:17 Latanoprost (Xalatan 0.005% Op Soln) 1 drop QHS OU 03/27/19 21:00 04/06/19 20:42 Lidocaine (Lidoderm Patch) 1 patch DAILY TD 04/01/19 09:00 04/07/19 09:07 Lorazepam (Ativan) 0.25 mg Q4HP PRN PO agitated 04/03/19 10:00 04/06/19 18:41 DC Lorazepam (Ativan) 1 mg Q4HP PRN IM AGITATION 04/02/19 10:30 04/03/19 09:49 DC Magnesium Oxide (Mag-Ox) 400 mg DAILY PO 03/28/19 09:00 04/07/19 13:26 Menthol/Methyl Salicylate (Bengay Cream) left shoulder BID TOP 03/27/19 21:00 04/04/19 08:53 Nicotine (Nicoderm Cq 7 Mg) 1 patch DAILY TD 03/28/19 09:00 04/06/19 08:12 Non-Formulary Medication ( See Comment Field Below ) REMOVE LIDODERM PATCH DAILY@21 XX 04/01/19 21:00 04/06/19 20:43 Omeprazole (PriLOSEC) 20 mg DAILY PO 03/28/19 09:00 04/06/19 08:19 Oxybutynin Chloride (Ditropan Xl) 5 mg QHS PO 04/02/19 21:00 04/06/19 18:41 DC 04/05/19 20:17 Patient Own Medication (Patient'S Own Med) 50mg = 1 tablet DAILY PO 03/28/19 09:00 04/07/19 13:27 Phenazopyridine HCl (Pyridium) 200 mg BID PO 03/29/19 15:00 03/30/19 21:00 DC 03/30/19 20:43 Prednisolone Acetate (Predforte 1% Ophth Susp) 2 drop QID OD 03/27/19 17:00 04/07/19 13:17 Prednisone (Deltasone) 2 mg DAILY PO 04/01/19 09:00 04/07/19 13:26 Propranolol HCl (Inderal) 5 mg 0100,0500,1700,2100 PO 04/02/19 17:00 04/03/19 09:49 DC 04/03/19 05:47 Propranolol HCl (Inderal) 10 mg 0100,0500,1700,2100 PO 04/03/19 17:00 04/07/19 05:25 Quetiapine Fumarate (SEROquel) 12.5 mg BID PO 03/27/19 21:00 03/30/19 07:49 DC 03/29/19 20:00 Quetiapine Fumarate (SEROquel) 12.5 mg BID PO 04/01/19 21:00 04/02/19 10:08 DC 04/01/19 20:29 Quetiapine Fumarate (SEROquel) 12.5 mg Q8HP PRN PO ANXIETY/AGITATION 03/31/19 17:30 04/02/19 10:11 DC 04/02/19 03:49 Quetiapine Fumarate (SEROquel) 25 mg BID PO 03/30/19 09:00 04/01/19 12:11 DC 04/01/19 08:28 Quetiapine Fumarate (SEROquel) 25 mg Q6H PRN PO ANXIETY/AGITATION 04/02/19 16:45 04/06/19 18:16 Quetiapine Fumarate (SEROquel) 25 mg TID PRN PO ANXIETY/AGITATION 04/02/19 13:00 04/02/19 16:50 DC Quetiapine Fumarate (SEROquel) 50 mg QHS PO 04/02/19 21:00 04/03/19 09:51 DC 04/02/19 21:21 Quetiapine Fumarate (SEROquel) 75 mg QHS PO 04/03/19 21:00 04/06/19 20:42 Senna (Senokot) 1 tab QHS PO 03/27/19 21:00 04/05/19 20:17 Temazepam (Restoril) 7.5 mg QHSP PRN PO INSOMNIA 04/03/19 21:00 04/06/19 18:41 DC 04/04/19 00:37 Temazepam (Restoril) 15 mg DAILY@2300 PRN PO SLEEP 04/02/19 23:00 04/03/19 09:49 DC Temazepam (Restoril) 15 mg QHS PO 04/03/19 21:00 04/06/19 18:41 DC 04/05/19 20:17 Temazepam (Restoril) 15 mg QHS PO 04/07/19 21:00 Timolol Maleate (Timoptic 0.5% Ophth Kourtney) 1 drop QHS OU 03/27/19 21:00 04/06/19 20:42 Tiotropium [place] (Spiriva Handihaler) 1 inhalation DAILY@08 INH 03/28/19 08:00 03/31/19 08:03 Tobramycin Sulfate (Tobrex 0.3% Ophth Kourtney) 2 drop QID OD 10/3/19 17:00 04/07/19 13:17 Trazodone HCl (Desyrel) 150 mg QHSP PRN PO INSOMNIA 03/27/19 21:00 04/01/19 12:11 DC 03/31/19 21:32 Zolpidem Tartrate (Ambien) 5 mg QHSP PRN PO INSOMNIA 04/01/19 12:15 04/02/19 10:08 DC 04/02/19 00:53 AZRA SOUTH MD Apr 07, 2019 16:18
[2019-04-07 19:50] VITALS: BP 163/78
[2019-04-07] MEDS: QUEtiapine FUMARATE 25 MG TAB PO SCH (20:39)
[2019-04-07] MEDS: DIVALPROEX 500 MG TAB PO SCH (20:39)
[2019-04-07] MEDS: TEMAZEPAM 15 MG CAP PO SCH (20:40)
[2019-04-07] MEDS: ATORVASTATIN 20 MG TAB PO SCH (20:40)
[2019-04-07] MEDS: LATANOPROST 0.005% OPHTH SOLN 2.5 ML OU SCH (20:41)
[2019-04-07] MEDS: TIMOLOL MALEATE 0.5% OPHTH SOLN 5 ML OU SCH (20:42)
[2019-04-07] MEDS: **NOTE PATIENT COMMENT** MISC XX SCH (20:43)
[2019-04-07] MEDS: SENNA 8.6 MG TAB (SENOKOT) PO SCH (21:00)
[2019-04-08] MEDS: PROPRANOLOL 10 MG TAB PO SCH ×4 (00:16→22:03)
[2019-04-08 05:40] VITALS: BP 143/67
[2019-04-08 07:02] LABS: HEMOGLOBIN 10.3 g/dl (12.0-15.5); MEAN CORPUSCULAR HEMOGLOBIN 35.6 pg (27.0-33.0); MEAN CORPUSCULAR HGB CONC 33.2 g/dl (32.0-36.5); MEAN CORPUSCULAR VOLUME 107.3 fl (80.0-96.0); PLATELET COUNT, AUTOMATED 174 10^3/uL (150-450); RED BLOOD COUNT 2.89 10^6/uL (4.00-5.40); WHITE BLOOD COUNT 8.5 10^3/uL (4.0-10.0)
[2019-04-08] MEDS: IPRATROPIUM 0.5MG/ALBUTEROL 2.5MG INH SOL UD 3ML (DUONEB)(J7620) NEB SCH (08:00)
[2019-04-08] MEDS: DOCUSATE SODIUM 100 MG CAP PO SCH ×2 (09:00→21:00)
[2019-04-08] MEDS: TOBRAMYCIN 0.3% OPHTH SOLN 5 ML OD SCH ×4 (09:00→22:05)
[2019-04-08] MEDS: ENOXAPARIN 30 MG/0.3 ML SYR (J1650) SC SCH (09:00)
[2019-04-08] MEDS: ANALGESIC BALM CRM 120 GM TOP SCH ×2 (09:00→22:06)
[2019-04-08] MEDS: guaiFENesin 200 MG TAB PO SCH ×3 (09:00→22:00)
[2019-04-08] MEDS: NICOTINE 7 MG/24 HR TRANSDERMAL TD SCH (09:00)
[2019-04-08] MEDS: KETOROLAC 0.5% OPHTH SOLN OD SCH ×4 (09:00→22:05)
[2019-04-08] MEDS: LIDOCAINE 5% (LIDODERM) PATCH TD SCH (09:00)
[2019-04-08] MEDS: prednisoLONE ACET 1% OPHTH SUSP 5ML OD SCH ×4 (09:00→22:05)
[2019-04-08 10:45] LABS: BLOOD UREA NITROGEN 12 MG/DL (7-18); CALCIUM LEVEL 7.9 MG/DL (8.8-10.2); CARBON DIOXIDE LEVEL 33 MEQ/L (21-32); CHLORIDE LEVEL 105 MEQ/L (98-107); CREATININE FOR GFR 0.68 MG/DL (0.55-1.30); GLOMERULAR FILTRATION RATE > 60.0 (>39); GLUCOSE, FASTING 88 MG/DL (70-100); SODIUM LEVEL 141 MEQ/L (136-145)
[2019-04-08] MEDS: predniSONE 1 MG TAB PO SCH (10:50)
[2019-04-08] MEDS: DULoxetine 30 MG CAP (CYMBALTA) PO SCH ×2 (10:50→22:04)
[2019-04-08] MEDS: AMITRIPTYLINE 25 MG TAB PO SCH ×2 (10:50→22:03)
[2019-04-08] MEDS: amLODIPine 10 MG TAB PO SCH (10:51)
[2019-04-08] MEDS: QUEtiapine FUMARATE 25 MG TAB PO PRN (10:52)
[2019-04-08 14:00] VITALS: BP 151/70
[2019-04-08] MEDS: ASPIRIN 81 MG CHEW TABLET PO SCH (14:58)
[2019-04-08] MEDS: MAGNESIUM OXIDE 400 MG TAB (MAG-OX) PO SCH (14:58)
[2019-04-08] MEDS: OMEPRAZOLE 20 MG CAP PO SCH (14:58)
--- NOTE | 2019-04-08 16:09 | IPNPDOC ---
PM&R Progress Note DATE OF SERVICE: Apr 08, 2019 Metal[employer] Progress Note Subjective: Patient participated in therapy today, was able to do stairs. REVIEW OF SYSTEMS: The following is a completed review of systems and has been reviewed. Review of systems otherwise unremarkable. PAIN: Patient self reports burning arm and leg pain EYES: No recent vision changes EARS, NOSE, & THROAT: No throat pain, or dysphagia, or rhinorrhea CARDIOVASCULAR: Denies chest pain or palpitations PULMONARY: Denies shortness of breath, + cough GASTROINTESTINAL: +constipation (improving) GENITOURINARY: +dysuria (improving) MUSCULOSKELETAL:weakness NEUROLOGICAL:myositis HEMATOLOGICAL: no easy bruising SKIN: left hip ecchymosis PSYCHIATRIC: +schizoaffective disorder All other review of systems found to be negative. PHYSICAL EXAMINATION: VITAL SIGNS: Please see below. GENERAL: Pleasant and cooperative. No acute distress. HEENT: PERRL. Extraocular movements intact. Clear conjunctiva CARDIOVASCULAR: Regular rate and rhythm. No murmurs, rubs, or gallops. LUNGS: Clear to auscultation bilaterally. No wheezes. No rhonchi ABDOMEN: Soft, nontender, nondistended. Positive bowel sounds. Normal active bowel sounds NEUROLOGICAL: Alert and oriented times three. Cranial nerves II through XII grossly intact. Sensation grossly intact +akathisias EXTREMITIES: 4\5 strength bilateral upper extremities. 4\5 strength right lower extremity.4/5 strength in left lower extremity. (+) restricted left shoulder on internal and external rotation SKIN: left hip bruise ASSESSMENT:74 year-old F with past medical history of Hypothyroidism, HTN, schizoaffective disorder who presents status post falls in setting of myositis. PLAN: 1. Rehab: PT- improve gait, endurance, maintain ROM/strength/stretch bilat LE, ambulating with RW well OT advance ADL management PROFESSIONAL SERVICES CONSULTANT for cognition 2. neuro: patient with new diagnosis of myositis, etiology unknown resulting in diffuse weakness and difficulty with mobility- will need outpatient neuro work- up 3. CArdiac: HTN c/u home meds medicine consulted to assist in management, monitoring QTC while on Seroquel 4. Resp: hx smoker, with productive cough will start guaifenesin, c/u breathing treatments 5. Psych: hx of schizoaffective disorder with episodes of delirium and agitation at night -increase Seroquel to 75mg qHS, c/u Seroquel 25mg q6h agitation, staff encouraged to gently redirect patient at night and help her get to the bathroom in a timely manner as this has been adding to her agitation in the evening, may use Ativan as a last resort if patient's behavior continues to escalate -c/u low dose Propanol for agitation also ordered overnight -c/u Restoril 15mg qHS for insomnia -d/c'd trazodone for insomnia as poor interaction with Seroquel 6. GI ppx: protonix 7. DVT ppx: lovenox 8. : reporting dysuria, UA + wbc, started on keflex, Ucx negative, patient still reporting dysuria, s/p course of Kefflex, s/p one time dose Diflucan 04/01/19 -c/u Myrbetriq 9. Pain: left shoulder OA, maintain ROM, c/u menthol salicylate and lidoderm patch to left shoulder -c/u Elavil dosing to 25mg BID, and continue Cymbalta at lower dose of 30mg BID to avoid avoid serotonin syndrome and anticholinergic effects -c/u low dose prednisone 2mg daily for myositis, will consider increasing to 5mg daily when overnight psychotic episodes improve 9. Dispo: to [facility] tomorrow Allergies Coded Allergies: morphine (Verified Allergy, Severe, 'I almost ', 12/19/18) acetaminophen (Verified Allergy, Unknown, unknown, 12/19/18) naproxen (Verified Allergy, Unknown, unknown, 12/19/18) TAKES IBUPROFEN AND ASPIRIN AT HOME oxycodone (Unverified Allergy, Unknown, unknown, 12/19/18) propoxyphene (Verified Allergy, Unknown, unknown, 12/19/18) tetanus toxoid, adsorbed (Verified Allergy, Unknown, unknown, 12/19/18) thiothixene (Verified Adverse Reaction, Intermediate, EPS, 12/19/18) hydrocodone (Verified Adverse Reaction, Mild, 'I fall', 12/19/18) hydroxyzine (Verified Adverse Reaction, Mild, vomits, 12/19/18) Vital Signs Vital Signs Date Time Temp Pulse Resp B/P (MAP) Pulse Ox O2 Delivery O2 Flow Rate FiO2 04/08/19 14:00 97.8 84 18 151/70 (97) 96 Laboratory Data CBC/BMP Laboratory Tests 04/08/19 06:37 Calcium Level 7.9 L 04/08/19 06:44 Red Blood Count 2.89 L, Mean Corpuscular Volume 107.3 H, Mean Corpuscular Hemoglobin 35.6 H, Mean Corpuscular Hemoglobin Concent 33.2, Red Cell Distribution Width 13.0 Labs 24H Laboratory Tests 2 04/08/19 06:37: Anion Gap 3L, Glomerular Filtration Rate > 60.0, Blood Urea Nitrogen 12, Creatinine 0.68, Sodium Level 141, Potassium Level 4.0, Chloride Level 105, Carbon Dioxide Level 33H, Calcium Level 7.9L 04/08/19 06:44: Nucleated Red Blood Cells % (auto) 0.0 Microbiology Microbiology 03/29/19 Urine Culture - Final, Complete Current Medications Current Medications Current Medications Medications (Trade) Dose Ordered Sig/Juana Route PRN Reason Start Time Stop Time Status Last Admin Dose Admin Albuterol/ Ipratropium (Duoneb (Ipr 0.5mg/Alb 2.5mg)) 3 ml Q4HP PRN NEB SOB/WHEEZING 03/27/19 14:00 03/27/19 15:16 DC Albuterol/ Ipratropium (Duoneb (Ipr 0.5mg/Alb 2.5mg)) 3 ml RTID NEB 04/01/19 14:00 04/06/19 19:55 Albuterol/ Ipratropium (Duoneb (Ipr 0.5mg/Alb 2.5mg)) 3 ml TID NEB 03/27/19 16:00 04/01/19 14:04 DC 03/31/19 08:03 Amitriptyline HCl (Elavil) 25 mg BID PO 03/27/19 21:00 04/01/19 12:11 DC 04/01/19 08:27 Amitriptyline HCl (Elavil) 25 mg BID PO 04/02/19 21:00 04/08/19 10:50 Amitriptyline HCl (Elavil) 50 mg BID PO 04/01/19 21:00 04/02/19 10:21 DC 04/02/19 08:53 Amlodipine Besylate (Norvasc) 7.5 mg DAILY PO 03/28/19 09:00 03/28/19 15:09 DC 03/28/19 08:30 Amlodipine Besylate (Norvasc) 10 mg DAILY PO 03/29/19 09:00 04/08/19 10:51 Aspirin (Aspirin Chewable) 81 mg DAILY PO 03/28/19 09:00 04/08/19 14:58 Atorvastatin Calcium (Lipitor) 20 mg QHS PO 03/27/19 21:00 04/07/19 20:40 Bisacodyl (Dulcolax Suppository) 10 mg DAILYPRN PRN [place] CONSTIPATION 03/27/19 12:45 Capsaicin (Zostrix 0.025%) arms and legs BID TOP 03/27/19 21:00 03/29/19 21:08 DC 03/29/19 20:03 Cephalexin Monohydrate (Keflex) 500 mg BID PO 03/29/19 15:00 04/03/19 15:00 DC 04/03/19 09:31 Divalproex Sodium (Depakote) 1,000 mg QHS PO 03/27/19 21:00 04/07/19 20:39 Docusate Sodium (Colace) 100 mg BID PO 03/27/19 09:00 04/05/19 20:17 Duloxetine HCl (Cymbalta) 30 mg BID PO 04/02/19 09:00 04/08/19 10:50 Duloxetine HCl (Cymbalta) 90 mg DAILY PO 03/28/19 09:00 04/01/19 12:11 DC 04/01/19 08:27 Enoxaparin Sodium (Lovenox) 30 mg DAILY SC 03/28/19 09:00 04/04/19 08:52 Guaifenesin (Robitussin Tab) 400 mg TID PO 03/27/19 16:00 04/08/19 14:58 Haloperidol (Haldol) 1 mg Q4HP PRN IM AGITATION 04/02/19 02:30 04/02/19 02:45 DC 04/02/19 02:42 Haloperidol (Haldol) 5 mg STAT STAT PO 04/06/19 18:41 04/06/19 18:48 DC Home Med (Med Rec Complete!) ASDIRECTED XX 03/27/19 14:45 03/27/19 14:54 DC Ibuprofen (Advil) 400 mg Q8HP PRN PO PAIN 03/28/19 08:45 04/01/19 12:11 DC 04/01/19 08:25 Ketorolac Tromethamine (Acular 0.5%) 1 drop QID OD 03/27/19 17:00 04/08/19 14:56 Latanoprost (Xalatan 0.005% Op Soln) 1 drop QHS OU 03/27/19 21:00 04/07/19 20:41 Lidocaine (Lidoderm Patch) 1 patch DAILY TD 04/01/19 09:00 04/07/19 09:07 Lorazepam (Ativan) 0.25 mg Q4HP PRN PO agitated 04/03/19 10:00 04/06/19 18:41 DC Lorazepam (Ativan) 1 mg Q4HP PRN IM AGITATION 04/02/19 10:30 04/03/19 09:49 DC Magnesium Oxide (Mag-Ox) 400 mg DAILY PO 03/28/19 09:00 04/08/19 14:58 Menthol/Methyl Salicylate (Bengay Cream) left shoulder BID TOP 03/27/19 21:00 04/04/19 08:53 Miscellaneous (Unresolved Clarification Entry) SEE LABEL COMMENTS DAILY XX 04/08/19 09:00 04/08/19 10:24 DC Nicotine (Nicoderm Cq 7 Mg) 1 patch DAILY TD 03/28/19 09:00 04/06/19 08:12 Non-Formulary Medication ( See Comment Field Below ) REMOVE LIDODERM PATCH DAILY@21 XX 04/01/19 21:00 04/07/19 20:43 Omeprazole (PriLOSEC) 20 mg DAILY PO 03/28/19 09:00 04/08/19 14:58 Oxybutynin Chloride (Ditropan Xl) 5 mg QHS PO 04/02/19 21:00 04/06/19 18:41 DC 04/05/19 20:17 Patient Own Medication (Patient'S Own Med) 50mg = 1 tablet DAILY PO 03/28/19 09:00 04/08/19 10:54 Phenazopyridine HCl (Pyridium) 200 mg BID PO 03/29/19 15:00 03/30/19 21:00 DC 03/30/19 20:43 Prednisolone Acetate (Predforte 1% Ophth Susp) 2 drop QID OD 03/27/19 17:00 04/08/19 14:56 Prednisone (Deltasone) 2 mg DAILY PO 04/01/19 09:00 04/08/19 10:50 Propranolol HCl (Inderal) 5 mg 0100,0500,1700,2100 PO 04/02/19 17:00 04/03/19 09:49 DC 04/03/19 05:47 Propranolol HCl (Inderal) 10 mg 0100,0500,1700,2100 PO 04/03/19 17:00 04/08/19 00:16 Quetiapine Fumarate (SEROquel) 12.5 mg BID PO 03/27/19 21:00 03/30/19 07:49 DC 03/29/19 20:00 Quetiapine Fumarate (SEROquel) 12.5 mg BID PO 04/01/19 21:00 04/02/19 10:08 DC 04/01/19 20:29 Quetiapine Fumarate (SEROquel) 12.5 mg Q8HP PRN PO ANXIETY/AGITATION 03/31/19 17:30 04/02/19 10:11 DC 04/02/19 03:49 Quetiapine Fumarate (SEROquel) 25 mg BID PO 03/30/19 09:00 04/01/19 12:11 DC 04/01/19 08:28 Quetiapine Fumarate (SEROquel) 25 mg Q6H PRN PO ANXIETY/AGITATION 04/02/19 16:45 04/08/19 10:52 Quetiapine Fumarate (SEROquel) 25 mg TID PRN PO ANXIETY/AGITATION 04/02/19 13:00 04/02/19 16:50 DC Quetiapine Fumarate (SEROquel) 50 mg QHS PO 04/02/19 21:00 04/03/19 09:51 DC 04/02/19 21:21 Quetiapine Fumarate (SEROquel) 75 mg QHS PO 04/03/19 21:00 04/07/19 20:39 Senna (Senokot) 1 tab QHS PO 03/27/19 21:00 04/05/19 20:17 Temazepam (Restoril) 7.5 mg QHSP PRN PO INSOMNIA 04/03/19 21:00 04/06/19 18:41 DC 04/04/19 00:37 Temazepam (Restoril) 15 mg DAILY@2300 PRN PO SLEEP 04/02/19 23:00 04/03/19 09:49 DC Temazepam (Restoril) 15 mg QHS PO 04/03/19 21:00 04/06/19 18:41 DC 04/05/19 20:17 Temazepam (Restoril) 15 mg QHS PO 04/07/19 21:00 04/07/19 20:40 Timolol Maleate (Timoptic 0.5% Ophth Kourtney) 1 drop QHS OU 03/27/19 21:00 04/07/19 20:42 Tiotropium [place] (Spiriva Handihaler) 1 inhalation DAILY@08 INH 03/28/19 08:00 03/31/19 08:03 Tobramycin Sulfate (Tobrex 0.3% Ophth Kourtney) 2 drop QID OD 03/27/19 17:00 04/08/19 14:55 Trazodone HCl (Desyrel) 150 mg QHSP PRN PO INSOMNIA 03/27/19 21:00 04/01/19 12:11 DC 03/31/19 21:32 Zolpidem Tartrate (Ambien) 5 mg QHSP PRN PO INSOMNIA 04/01/19 12:15 04/02/19 10:08 DC 04/02/19 00:53 AZRA SOUTH MD Apr 08, 2019 16:09
--- NOTE | 2019-04-08 19:23 | IPNPDOC ---
Date Seen The patient was seen on 04/08/19. Progress Note SUBJECTIVE: Patient states that her lower back does bother her but is chronic. Only complaints is that she does not trust people around her and her issues with her daughters. Appeared comfortable in bed. OBJECTIVE PHYSICAL EXAMINATION: VITAL SIGNS: Please see below. General: No acute distress, Alert Eyes: Normal sclera, EOMI HENT: Atraumatic Cardiovascular: Normal rate, normal rhythm Pulmonary: Clear to auscultation b/l, no wheezing GI: Soft, nontender, nondistended Skin: Warm and dry Neuro: CN grossly intact. No focal deficits. LABORATORY DATA, IMAGING STUDIES, MICROBIOLOGY: Please see below. DVT prophylaxis ordered?: Lovenox ASSESSMENT AND PLAN: 1. Schizoaffective disorder - c/w psych medications. - Monitor Qtc periodically for prolongation as needed. - d/c benzos and anticholinergic. Haldol PRN as recommended by Psych. 2. Frequent falls and myositis - c/w PT in ARU. - topical capsaicin cream and bengay. - On prednisone 2mg. - Recommend neurology evaluation post discharge. 3. HTN - c/w home medications. 4. tobacco use - nicotine patch VS, I&O, 24H, Fishbone Vital Signs/I&O Vital Signs Date Time Temp Pulse Resp B/P (MAP) Pulse Ox O2 Delivery O2 Flow Rate FiO2 04/08/19 17:06 88 151/70 04/08/19 14:00 97.8 18 96 I&O- Last 24 Hours up to 6 AM 04/08/19 06:00 Intake Total 1140 ml Balance 1140 ml Laboratory Data 24H LABS Laboratory Tests 2 04/08/19 06:37: Anion Gap 3L, Glomerular Filtration Rate > 60.0, Blood Urea Nitrogen 12, Creatinine 0.68, Sodium Level 141, Potassium Level 4.0, Chloride Level 105, Carbon Dioxide Level 33H, Calcium Level 7.9L 04/08/19 06:44: Nucleated Red Blood Cells % (auto) 0.0 CBC/BMP Laboratory Tests 04/08/19 06:37 Calcium Level 7.9 L 04/08/19 06:44 Red Blood Count 2.89 L, Mean Corpuscular Volume 107.3 H, Mean Corpuscular Hemoglobin 35.6 H, Mean Corpuscular Hemoglobin Concent 33.2, Red Cell Distribution Width 13.0 Microbiology Microbiology 03/29/19 Urine Culture - Final, Complete TOMAS HERNANDEZ MD Apr 08, 2019 19:23
[2019-04-08 20:00] VITALS: BP 136/72
[2019-04-08] MEDS: **NOTE PATIENT COMMENT** MISC XX SCH (21:00)
[2019-04-08] MEDS: SENNA 8.6 MG TAB (SENOKOT) PO SCH (21:00)
[2019-04-08] MEDS: DIVALPROEX 500 MG TAB PO SCH (22:03)
[2019-04-08] MEDS: QUEtiapine FUMARATE 25 MG TAB PO SCH (22:03)
[2019-04-08] MEDS: ATORVASTATIN 20 MG TAB PO SCH (22:04)
[2019-04-08] MEDS: TEMAZEPAM 15 MG CAP PO SCH (22:04)
[2019-04-08] MEDS: TIMOLOL MALEATE 0.5% OPHTH SOLN 5 ML OU SCH (22:05)
[2019-04-08] MEDS: LATANOPROST 0.005% OPHTH SOLN 2.5 ML OU SCH (22:05)
[2019-04-09] MEDS: PROPRANOLOL 10 MG TAB PO SCH ×2 (01:10→05:00)
[2019-04-09 08:56] VITALS: BP 130/70
[2019-04-09] MEDS: ASPIRIN 81 MG CHEW TABLET PO SCH (09:47)
[2019-04-09 09:48] VITALS: BP 130/70
[2019-04-09] MEDS: predniSONE 1 MG TAB PO SCH (09:48)
[2019-04-09] MEDS: amLODIPine 10 MG TAB PO SCH (09:48)
[2019-04-09] MEDS: OMEPRAZOLE 20 MG CAP PO SCH (09:48)
[2019-04-09] MEDS: DULoxetine 30 MG CAP (CYMBALTA) PO SCH (09:48)
[2019-04-09] MEDS: MAGNESIUM OXIDE 400 MG TAB (MAG-OX) PO SCH (09:49)
[2019-04-09] MEDS: AMITRIPTYLINE 25 MG TAB PO SCH (09:49)
[2019-04-09] MEDS ORDERED: MAG400TA PO (10:15)
[2019-04-09] MEDS ORDERED: ATOR1TAB21 PO (10:15)
[2019-04-09] MEDS ORDERED: AMIT25TA PO (10:15)
[2019-04-09] MEDS ORDERED: OMEP-218 PO (10:15)
[2019-04-09] MEDS ORDERED: QUET1TAB7 PO (10:15)
[2019-04-09] MEDS ORDERED: NICO7PA TD (10:15)
[2019-04-09] MEDS ORDERED: CYMB1CAP5 PO (10:15)
[2019-04-09] MEDS ORDERED: DEPA1TAB3 PO (10:15)
[2019-04-09] MEDS ORDERED: PRED1TABL PO (10:15)
[2019-04-09] MEDS ORDERED: ASPI81CH8 PO (10:15)
[2019-04-09] MEDS ORDERED: AMLO10TA5 PO (10:15)
[2019-04-09] MEDS ORDERED: REST15CA PO (10:15)
[2019-04-09] MEDS ORDERED: VENTAER INH ×2 (11:54→11:55)
[2019-04-09] MEDS ORDERED: SERO1TAB3 PO (11:55)
== END 2019-04-09 12:22 | disposition home or self-care (01) | DRG 556 ==
LOC: M PM&R 12:10
PROVIDERS: ADMIT Physical Medicine & Rehabilitation; ATTEND Physical Medicine & Rehabilitation
DX: M60.9 Myositis, unspecified (principal); F32.9 Major depressive disorder, single episode, unspecified; K21.9 Gastro-esophageal reflux disease without esophagitis; I10 Essential (primary) hypertension; M54.5 Low back pain; K59.00 Constipation, unspecified; R53.1 Weakness; F17.200 Nicotine dependence, unspecified, uncomplicated; M19.011 Primary osteoarthritis, right shoulder; Z79.82 Long term (current) use of aspirin; Z79.899 Other long term (current) drug therapy; F25.9 Schizoaffective disorder, unspecified; Z88.5 Allergy status to narcotic agent; Z88.6 Allergy status to analgesic agent; Z88.8 Allergy status to other drugs, medicaments and biological substances; R29.6 Repeated falls; J44.9 Chronic obstructive pulmonary disease, unspecified

== ENCOUNTER 2019-04-11 21:39 | Emergency (ER) | payer MEDICARE, MEDICAID ==
[~2019-04-11] VITALS: Ht 152.4 cm; Wt 50.0 kg
[~2019-04-11 21:39] MED LIST changes: +AMLO10TA5 PO; +ASPI81CH8 PO; +CYMB1CAP5 PO; +MAG400TA PO; +NICO7PA TD; +OMEP-218 PO; +PRED1TABL PO; +REST15CA PO; +SERO1TAB3 PO
[2019-04-11 23:09] LABS: BASO % 0.2 % (0.0-1.0); EOS # 0.2 10^3/uL (0.0-0.5); EOS % 1.3 % (0.0-3.0); HEMATOCRIT 32.1 % (36.0-47.0); HEMOGLOBIN 10.5 g/dl (12.0-15.5); LYMPH # 3.5 10^3/uL (1.5-5.0); LYMPH % 23.6 % (24.0-44.0); MEAN CORPUSCULAR HEMOGLOBIN 34.7 pg (27.0-33.0); MEAN CORPUSCULAR HGB CONC 32.7 g/dl (32.0-36.5); MEAN CORPUSCULAR VOLUME 105.9 fl (80.0-96.0); MONO # 1.4 10^3/uL (0.0-0.8); MONO % 9.7 % (0.0-5.0); NEUTROPHILS # 9.6 10^3/uL (1.5-8.5); NEUTROPHILS % 64.8 % (36.0-66.0); PLATELET COUNT, AUTOMATED 224 10^3/uL (150-450); RED BLOOD COUNT 3.03 10^6/uL (4.00-5.40); WHITE BLOOD COUNT 14.8 10^3/uL (4.0-10.0)
[2019-04-11 23:27] LABS: INR 1.06; PROTHROMBIN TIME 13.6 SECONDS (11.8-14.0)
--- NOTE | 2019-04-11 23:27 | REPVR ---
PROCEDURE INFORMATION: Exam: CT Head Without Contrast Exam date and time: 04/11/2019 10:11 PM Clinical history: 74 years old, female; Injury or trauma; Fall; Initial encounter; Concussion / head injury TECHNIQUE: Imaging protocol: Computed tomography of the head without contrast. Radiation optimization: All CT scans at this facility use at least one of these dose optimization techniques: automated exposure control; mA and/or kV adjustment per patient size (includes targeted exams where dose is matched to clinical indication); or iterative reconstruction. COMPARISON: CT Head without contrast 02/26/2019 12:08 AM FINDINGS: Brain: Acute right holohemispheric subdural hematoma measuring 5-6 mm in maximal thickness. Minimal right cerebral sulcal effacement. Moderate to severe chronic cerebral volume loss and moderate chronic white matter disease. Ventricles: Normal. No ventriculomegaly. Bones/joints: Unremarkable. No acute fracture. Sinuses: Visualized sinuses are unremarkable. No fluid levels. Mastoid air cells: Visualized mastoid air cells are well aerated. Soft tissues: Unremarkable. IMPRESSION: Acute right holohemispheric subdural hematoma measuring 5-6 mm in maximal thickness. Electronically signed by: Pj Haque On 04/11/2019 23:27:18 PM
[2019-04-11 23:28] LABS: PARTIAL THROMBOPLASTIN TIME 23.1 SECONDS (25.0-38.4)
--- NOTE | 2019-04-11 23:31 | REPVR ---
PROCEDURE INFORMATION: Exam: CT Cervical Spine Without Contrast Exam date and time: 04/11/2019 10:11 PM Clinical history: 74 years old, female; Injury or trauma; Fall; Initial encounter; Concussion /head injury TECHNIQUE: Imaging protocol: Computed tomography images of the cervical spine without contrast. Radiation optimization: All CT scans at this facility use at least one of these dose optimization techniques: automated exposure control; mA and/or kV adjustment per patient size (includes targeted exams where dose is matched to clinical indication); or iterative reconstruction. COMPARISON: CT Spine,cervical w/o contrast 02/26/2019 12:08 AM FINDINGS: Vertebrae: Degenerative alignment abnormalities greatest at C3-C4, measuring 4 mm anterolisthesis. Maintained vertebral body heights with a straightened cervical curvature. Discs/Spinal canal/Neural foramina: Diffuse degenerative disc space loss with degenerative disc osteophyte complexes, facet arthropathy, and ligamentum flavum thickening causes up to moderate to severe spinal and foraminal stenosis greatest at C3 -C6. Left greater than right degenerative cervical facet arthropathy. Soft tissues: Unremarkable. Lungs: Lung apices are normal. IMPRESSION: No acute abnormality. Electronically signed by: Pj Haque On 04/11/2019 23:31:15 PM
--- NOTE | 2019-04-11 23:32 | REPVR ---
PROCEDURE INFORMATION: Exam: CT Maxillofacial Without Contrast, Sinus Exam date and time: 04/11/2019 10:11 PM Clinical history: 74 years old, female; Injury or trauma; Fall; Initial encounter; Concussion /head injury; Loss of consciousness not known TECHNIQUE: Imaging protocol: CT Maxillofacial without contrast. Focus on the sinuses. Radiation optimization: All CT scans at this facility use at least one of these dose optimization techniques: automated exposure control; mA and/or kV adjustment per patient size (includes targeted exams where dose is matched to clinical indication); or iterative reconstruction. COMPARISON: No relevant prior studies available. FINDINGS: Frontal sinuses: Normal. No air-fluid levels. Ethmoid air cells: Normal. No air-fluid levels. Sphenoid sinuses: Normal. No air-fluid levels. Maxillary sinuses: Normal. No air-fluid levels. Ostiomeatal units are patent. Orbits: Evidence of previous right-sided ocular surgery with intraocular lens implant. Mastoid air cells: Trace right mastoid air cell opacification. Nasal cavity/Septum: Rightward nasal septal deviation and spurring. Brain: 5 mm right hemispheric subdural hematoma. Soft tissues: Unremarkable. Bones/joints: Moderate left TMJ degenerative joint disease. IMPRESSION: No acute osseous abnormality. Electronically signed by: Pj Haque On 04/11/2019 23:32:23 PM
[2019-04-12] MEDS ORDERED: ACET500C10 PO
[2019-04-12] MEDS ORDERED: COMB0.2S
[2019-04-12] MEDS ORDERED: CLAR10CA3 PO
[2019-04-12 00:05] LABS: BLOOD UREA NITROGEN 16 MG/DL (7-18); CARBON DIOXIDE LEVEL 31 MEQ/L (21-32); CHLORIDE LEVEL 101 MEQ/L (98-107); CK-MB VALUE MASS 1.4 NG/ML (<3.6); CPK CREATINE PHOSPHOKINASE 120 U/L (26-192); GLOMERULAR FILTRATION RATE > 60.0 (>39); GLUCOSE, FASTING 92 MG/DL (70-100); MB/CK RELATIVE INDEX 1.17 (< OR =4); POTASSIUM SERUM 4.2 MEQ/L (3.5-5.1); SODIUM LEVEL 135 MEQ/L (136-145); TROPONIN I < 0.02 NG/ML (< 0.10)
[2019-04-12 00:43] VITALS: BP 114/57
--- NOTE | 2019-04-12 07:34 | ECGEPIP ---
[facility] - ED Test Date: 2019-04-11 Pat Name: BROOKE CARR Department: Room: - Gender: Female Coach Operator: : 1945 Requested By: MI Nelson PA-C Order Number: [id number] Reading MD: Alfredo Lara Measurements Intervals Rayle Rate: 87 P: 26 IN: 148 QRS: -14 QRSD: 102 T: 61 QT: 388 QTc: 469 Interpretive Statements SINUS RHYTHM POOR R WAVE PROGRESSION NONSPECIFIC T-WAVE ABNORMALITY SIMILAR TO 03/30/19 Electronically Signed on 04-12-2019 7:34:42 EDT by Alfredo Lara
== END 2019-04-12 00:50 | disposition short-term general hospital (02) ==
LOC: M ED 21:39
DX: S06.5X0A Traumatic subdural hemorrhage without loss of consciousness, initial encounter (principal); W19.XXXA Unspecified fall, initial encounter; Y92.018 Other place in single-family (private) house as the place of occurrence of the external cause; I10 Essential (primary) hypertension; J44.9 Chronic obstructive pulmonary disease, unspecified; F20.9 Schizophrenia, unspecified; Z79.899 Other long term (current) drug therapy; Z79.82 Long term (current) use of aspirin; Z88.5 Allergy status to narcotic agent; Z88.7 Allergy status to serum and vaccine; Z88.8 Allergy status to other drugs, medicaments and biological substances